=== PATIENT | female | born 1950 | race Caucasian/White ===

== ENCOUNTER 2016-07-08 21:25 | Emergency (ER) | payer MEDICARE ==
[~2016-07-08] VITALS: Ht 165.1 cm; Wt 131.1 kg
[~2016-07-08 21:25] MED LIST: ALBU2.5V14 IH; ALPR0.5T6 PO; ASPI-482 PO; FLUO40CA9 PO; FURO80TA3 PO; GABA-586 PO; HYDR-2758 PO; HYDR-963 PO; INSU100I17 SQ; LIPITOR80 MG PO; LOSA50TA2 PO; LOVA40TA2 PO; MAGN100T3 PO; MAGN400T22 PO; MECL25TA PO; MECL25TA3 PO; METF10002 PO; MOME13HF2 IH; OMEG500C PO; ONDA4TAB10 PO; OXYC1TAB7 PO; OXYC5CAP PO; PRAV80TA2 PO; RANO500T2 PO; SOTA80TA48 PO; TORS20TA2 PO; VERA180T49 PO; WARF1TAB74 PO; WARF3TAB54 PO; WARF3TAB7 PO; percocet PO
[2016-07-08 22:30] VITALS: BP 149/85
[2016-07-08] MEDS ORDERED: FAMOTIDINE 20 MG/2 ML VIAL IVP ONE (22:30)
[2016-07-08] MEDS ORDERED: diphenhydrAMINE 50 MG/ML VIAL IV ONE (22:30)
[2016-07-08] MEDS ORDERED: methylPREDNISolone SOD SUCC PF 125 MG/2 ML VIAL. IV ONE (22:30)
[2016-07-08] MEDS ORDERED: IPRATRPIUM/ALBUTEROL 0.5/2.5MG 3 ML NEBU. ONE (23:04)
[2016-07-08] MEDS ORDERED: IPRATRPIUM/ALBUTEROL 0.5/2.5MG 3 ML NEBU. NEB ONE (23:15)
[2016-07-09] MEDS ORDERED: predniSONE 20 MG TABLET ONE (00:43)
[2016-07-09] MEDS ORDERED: hydrOXYzine HCL 25 MG TABLET ONE (00:43)
--- NOTE | 2016-07-09 01:05 | PHYS DOC ---
General Chief Complaint: SKIN PROBLEM Stated Complaint: RASH,ALLERGY REACTION Time Seen by MD: 22:04 Source: patient, old records Exam Limitations: no limitations Problems: History of Present Illness Initial Comments Pt is 66/F to ED c/o rash. Pt diagnosed colorectal cancer last Nov, follows with oncology. Has right chest port with constant chemo infusion, this is treatment #8. Pt has had mild rash past two weeks unknown etiology, taking OTC benadryl prn. Rash appeared to worsen this am when chemo began infusing, pt has been itching and has scabbed excoriated lesions dorsal left forearm from itching. Pt states small areas of rash scattered over her body now, she has h/o COPD and has been coughing but no iraheta/hoarseness/sob/face or throat swelling. Called her oncologist sergio, recommended local ED for allergic rxn treatment. No cp/sob. VSS Timing/Duration: changing over time (2 wks) Severity: mild Modifying Factors: improves with cold therapy, improves with other Associated Symptoms: rash Allergies: Coded Allergies: adenosine (Verified Allergy, Severe, Anaphylaxis, 12/06/14) "I swell up and I can't breathe." adhesive (Verified Allergy, Intermediate, ITCH, REDNESS WITH PLASTIC TAPE , 12/06/14) PLASTIC TAPE latex (Verified Allergy, Intermediate, Itching, 12/06/14) and "red blotches" I S O L A T I O N *CONTACT* (Verified Allergy, Unknown, 12/23/15) +MRSA abd wound 12/21/15 Past Medical History Medical History: cancer (colorectal dx Nov 2015 follows oncology current chemotherapy), other (CHF, CAD, HLP, DVT, pneumonia, WANG uses 2L O2 NC, pancreatitis, morbid obesity, carpal tunnel, depression) Surgical History: angioplasty, tonsillectomy, other (hysterectomy) Family History Significant Family History: no pertinent family hx Social History Smoker: non-smoker Alcohol: none Drugs: none Review of Systems Constitutional: denies chills, denies fever Respiratory: see HPI Cardiovascular: denies chest pain, denies palpitations, denies syncope Gastrointestinal: denies diarrhea, denies nausea, denies vomiting Genitourinary: denies dysuria, denies hematuria Musculoskeletal: denies joint swelling, denies neck pain Skin: see HPI Psychiatric/Neurological: denies headache, denies paresthesia, denies seizure Physical Exam General Appearance: no apparent distress, obese Ear, Nose, Throat: hearing grossly normal, normal ENT inspection, normal pharynx (no swelling) Neck: full range of motion, supple Respiratory: lungs clear, normal breath sounds, no respiratory distress Cardiovascular: normal peripheral pulses, regular rate, rhythm Gastrointestinal: non tender, soft (obese) Back: no CVA tenderness, no vertebral tenderness Extremities: non-tender, no calf tenderness 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 Small patches erythema scattered at arms/legs c/w allergic rash) Orders, Labs, Meds duoneb/solumedrol 125mg IV/pepcid 20mgIV/benadryl 25mg IV given in ED 0051: I have been able to observe pt visually thru ED course. On arrival she was very agitated, rubbing her arms/legs together obviously uncomfortable with itching. Since receiving meds pt has been lying still no longer constantly scratching, obviously improved. She says she still has some itching but it is much less. Small red patches on arms/legs have faded, nearly disappeared completely. Her respiratory status has been at baseline since duoneb. I discussed home instructions and prescription meds at length and her questions were answered. She expressed agreement/understanding with treatment plan. Departure Time of Disposition: 00:46 Disposition: 01 HOME, SELF-CARE Diagnosis: Allergic Rash uncertain cause Condition: STABLE Patient Instructions: Allergy Tests Additional Instructions: Avoid scratching. Cool environment for better symptom control. OTC pepcid and benadryl while taking prednisone, do not take benadryl with hydroxyzine. Continue current medications. Rx: prednisone, bactroban, hydroxyzine (sedation precautions) Keep wound covered with sterile dressing. Wash wound twice daily with soap and warm water, blot dry. Change dressing each wash. Call your oncologist upon opening this morning to discuss tonight's events and schedule next available appointment for recheck. Return to ED with new or changing symptoms. BORA ESTEVEZ DO July 09, 2016 01:05
== END 2016-07-09 00:55 | disposition home or self-care (01) ==
LOC: ER 21:25
DX: T78.40XA Allergy, unspecified, initial encounter (principal); R21 Rash and other nonspecific skin eruption; I25.10 Atherosclerotic heart disease of native coronary artery without angina pectoris; I50.9 Heart failure, unspecified; E66.01 Morbid (severe) obesity due to excess calories; G47.33 Obstructive sleep apnea (adult) (pediatric); E78.5 Hyperlipidemia, unspecified; C19 Malignant neoplasm of rectosigmoid junction; J44.9 Chronic obstructive pulmonary disease, unspecified; Z86.718 Personal history of other venous thrombosis and embolism; Z98.61 Coronary angioplasty status; Z88.8 Allergy status to other drugs, medicaments and biological substances; Z91.041 Radiographic dye allergy status; Z91.040 Latex allergy status; X58.XXXA Exposure to other specified factors, initial encounter
CPT/HCPCS: 94640; 96374; 96375; 99284; J1200; J2930; J7620; S0028

== ENCOUNTER → 2016-09-07 | Outpatient (CLI) | payer MEDICARE ==
[~2016-09-07] MED LIST changes: +IOHEXOL 240 MG/ML 50ML VIAL. ONE; +IOHEXOL 300 MG/ML 75 ML VIAL. IV ONE
--- NOTE | 2016-09-07 16:06 | RAD ---
CT of the chest, abdomen and pelvis with contrast, 09/07/2016: History: Follow-up rectal cancer after chemotherapy Multidetector CT imaging was performed following oral and IV administration of contrast. There has been previous coronary artery surgery. Coronary artery stents and/or calcifications are present. There is mild calcific plaquing of the thoracic aorta. A Port-A-Cath extends into the superior aspect of the right atrium. No mediastinal or hilar adenopathy is seen. There is linear scarring and/or atelectasis in the inferior lingular region and right middle lobe. A calcified granuloma is present in the left upper lobe. Two tiny 2-3 mm subpleural nodules in the posteromedial aspect of the right lower lobe are unchanged since 12/06/2014 and probably represent benign lymph nodes or vessels. No pulmonary mass or significant consolidation is seen. There is no evidence of pleural fluid. The gallbladder is surgically absent. Mild prominence of the common bile duct and the intrahepatic bile ducts is probably secondary to the postcholecystectomy state. No common duct calculus is seen. No hepatic mass is identified. The pancreas is unremarkable. The spleen is of normal size. Two tiny low-density lesions in the spleen are too small to definitively characterize but are probably cysts. A 1 cm low-density lesion in the lateral aspect of the left kidney is probably a cyst. The kidneys show no evidence of obstruction. No adrenal abnormality is detected. Aortoiliac calcific plaquing is present. No abdominal or pelvic adenopathy is seen. The uterus is surgically absent. There are surgical sutures at the rectal level. Mild streaky increased density in the presacral fat probably represents scarring. There are also surgical sutures related to a small bowel loop in the right lower quadrant. There is no evidence of bowel dilatation or a discrete mass. No free fluid is evident in the abdomen or pelvis. There is moderate soft tissue thickening in the subcutaneous fat of the anterior abdominal wall near the midline and to the right in the right lower quadrant. This most likely represents postsurgical scarring. Moderate multilevel degenerative changes are present in the spine. IMPRESSION: 1. Miscellaneous findings as described above. 2. No specific CT evidence of metastatic disease in the chest, abdomen or pelvis. PQRS Compliance Statement: One or more of the following individualized dose reduction techniques were utilized for this examination: 1. Automated exposure control 2. Adjustment of the mA and/or kV according to patient size 3. Use of iterative reconstruction technique
== END | disposition home or self-care (01) ==
LOC: CT 08:26
PROVIDERS: ATTEND Internal Medicine Hematology & Oncology
DX: C20 Malignant neoplasm of rectum (principal); Z95.5 Presence of coronary angioplasty implant and graft
CPT/HCPCS: 71260; 74177; Q9966; Q9967

== ENCOUNTER → 2016-10-13 | Outpatient (CLI) | payer MEDICARE ==
[~2016-10-13] MED LIST changes: -IOHEXOL 240 MG/ML 50ML VIAL. ONE; -IOHEXOL 300 MG/ML 75 ML VIAL. IV ONE
[2016-10-13 12:36] LABS: BASO % 1 % (0-3); EOS # 0.1 x10^3/uL (0.0-0.7); EOS % 3 % (0-3); HEMOGLOBIN 10.9 g/dL (12.0-15.5); LYMPH # 0.9 x10^3/uL (1.0-4.8); LYMPH % 18 % (24-48); MEAN CORPUSCULAR HEMOGLOBIN 28 pg (25-35); MEAN CORPUSCULAR HGB CONC 33 g/dL (31-37); MEAN CORPUSCULAR VOLUME 86 fL (79-100); MONO # 0.4 x10^3/uL (0.0-1.1); MONO % 8 % (0-9); NEUT # 3.4 x10^3uL (1.8-7.7); NEUT % 70 % (31-73); PLATELET COUNT 168 x10^3/uL (140-400); RED BLOOD COUNT 3.84 x10^6/uL (3.50-5.40); RED CELL DISTRIBUTION WIDTH 18.1 % (11.5-14.5); WHITE BLOOD COUNT 4.8 x10^3/uL (4.0-11.0)
[2016-10-13 12:50] LABS: ALBUMIN/GLOBULIN RATIO 0.5 (1.0-1.7); CALCIUM 8.2 mg/dL (8.5-10.1); CREATININE 1.1 mg/dL (0.6-1.0); TOTAL BILIRUBIN 0.2 mg/dL (0.2-1.0); TOTAL PROTEIN 6.1 g/dL (6.4-8.2)
== END | disposition home or self-care (01) ==
LOC: LAB 12:16
PROVIDERS: ATTEND Internal Medicine Hematology & Oncology
DX: C20 Malignant neoplasm of rectum (principal)
CPT/HCPCS: 36415; 80053; 82378; 85027

== ENCOUNTER → 2016-12-10 | Outpatient (CLI) | payer MEDICARE | END | disposition home or self-care (01) | LOC: MAMMO 10:02 | PROVIDERS: ATTEND Family Medicine | DX: Z12.31 Encounter for screening mammogram for malignant neoplasm of breast (principal) | CPT/HCPCS: G0202; 77067 ==

== ENCOUNTER → 2016-12-23 | Outpatient (CLI) | payer MEDICARE ==
--- NOTE | 2016-12-23 14:20 | RAD ---
DATE: 12/23/2016 EXAM: DIGITAL DIAGNOSTIC RT HISTORY: Possible abnormality on screening COMPARISON: Screening examination 12/10/2016 This study was interpreted with the benefit of Computerized Aided Detection (CAD). FINDINGS: Breast Density: FATTY The Breast Parenchyma is primarily fatty replaced. Breast parenchyma level density A.. Additional images were obtained. A cleavage view was obtained as well as rolled views medially and laterally. The patient has a Port-A-Cath scar in the upper and medial chest. This was marked with a BB. The area of increased density corresponds to same. IMPRESSION: Port-A-Cath scar causing slightly increased density in the medial right breast close to the chest wall . The findings are benign BI-RADS CATEGORY: 2 BENIGN FINDING(S) RECOMMENDED FOLLOW-UP: 12M 12 MONTH FOLLOW-UP PQRS compliance statement: Patient information was entered into a reminder system with a target due date 12/10/2017 for the next mammogram. Mammography is a sensitive method for finding small breast cancers, but it does not detect them all and is not a substitute for careful clinical examination. A negative mammogram does not negate a clinically suspicious finding and should not result in delay in biopsying a clinically suspicious abnormality. "Our facility is accredited by the [employer] Mammography Program."
== END | disposition home or self-care (01) ==
LOC: MAMMO 13:42
PROVIDERS: ATTEND Family Medicine
DX: R92.8 Other abnormal and inconclusive findings on diagnostic imaging of breast (principal); L90.5 Scar conditions and fibrosis of skin
CPT/HCPCS: G0206; 77065

== ENCOUNTER 2017-09-04 12:22 | Inpatient (IN) | payer MEDICARE ==
[~2017-09-04] VITALS: Ht 165.1 cm; Wt 148.4 kg
[~2017-09-04 12:22] MED LIST changes: -METF10002 PO; +METF10003 PO; +WARF3TAB50 PO; -WARF3TAB7 PO
--- NOTE | 2017-09-04 12:54 | EKG ---
[address] [address] Test Date: 2017-09-04 Test Time: 12:49:01 Pat Name: JUNG GUNDERSON Department: Room: Gender: F Fountain Server: MIKE : 1950 Requested By: SUKHDEV DICKERSON Order Number: [id number] Reading MD: José Dietz MD Measurements Intervals [place] Rate: 61 P: 90 IN: 192 QRS: -45 QRSD: 88 T: 66 QT: 460 QTc: 465 Interpretive Statements SINUS RHYTHM ABNORMAL LEFT AXIS DEVIATION LEFT ANTERIOR FASCICULAR BLOCK Electronically Signed On 09-06-2017 13:06:41 CDT by José Dietz MD
[2017-09-04] MEDS ORDERED: ONDANSETRON PF 4 MG/2 ML VIAL. IV ONE (13:00)
[2017-09-04 13:40] LABS: BILIRUBIN,URINE NEG (NEG); CLARITY,URINE HAZY; COLOR,URINE STRAW; GLUCOSE,URINE NEG (NEG); NITRITE,URINE NEG (NEG); UROBILINOGEN,URINE 0.2 mg/dL (0.2 mg/dL)
[2017-09-04 13:41] LABS: BACTERIA,URINE 0 /HPF (0-FEW); HYALINE CASTS, URINE OCC /HPF; SQUAMOUS EPITHELIAL CELL,UR FEW /LPF; WBC,URINE OCC /HPF (0-4)
[2017-09-04] MEDS: MECLIZINE 12.5 MG TABLET. PO PRN (13:55)
[2017-09-04 14:01] LABS: BASO # 0.1 x10^3/uL (0.0-0.2); BASO % 2 % (0-3); EOS # 0.1 x10^3/uL (0.0-0.7); EOS % 2 % (0-3); HEMATOCRIT 38.6 % (36.0-47.0); LYMPH # 1.3 x10^3/uL (1.0-4.8); LYMPH % 19 % (24-48); MEAN CORPUSCULAR HEMOGLOBIN 30 pg (25-35); MEAN CORPUSCULAR HGB CONC 34 g/dL (31-37); MEAN CORPUSCULAR VOLUME 89 fL (79-100); MONO # 0.4 x10^3/uL (0.0-1.1); MONO % 7 % (0-9); NEUT # 4.9 x10^3uL (1.8-7.7); NEUT % 71 % (31-73); PLATELET COUNT 221 x10^3/uL (140-400); RED BLOOD COUNT 4.31 x10^6/uL (3.50-5.40); RED CELL DISTRIBUTION WIDTH 13.7 % (11.5-14.5); WHITE BLOOD COUNT 6.9 x10^3/uL (4.0-11.0)
[2017-09-04 14:22] LABS: ALBUMIN 2.1 g/dL (3.4-5.0); ALBUMIN/GLOBULIN RATIO 0.5 (1.0-1.7); CALCIUM 8.4 mg/dL (8.5-10.1); CREATININE 1.1 mg/dL (0.6-1.0); GFR 49.8; TOTAL BILIRUBIN 0.3 mg/dL (0.2-1.0); TOTAL PROTEIN 6.1 g/dL (6.4-8.2)
[2017-09-04 14:24] LABS: POTASSIUM 4.3 mmol/L (3.5-5.1)
--- NOTE | 2017-09-04 14:30 | RAD ---
Indication: Headaches and dizziness for one week Technique: Noncontrast CT head was obtained. Comparison is from September 17, 2014. One or more of the following individualized dose reduction techniques were utilized for this examination: 1. Automated exposure control 2. Adjustment of the mA and/or kV according to patient size 3. Use of iterative reconstruction technique Findings: The ventricles and sulci are within normal limits for age. There is no acute intracranial hemorrhage or extra-axial fluid collection. There is no mass effect or midline shift. Dia-white differentiation is preserved. There is no depressed skull fracture. The included paranasal sinuses and mastoid air cells are clear. There is stranding in the right cheek, correlate with any bruising or hematoma at this site. IMPRESSION: 1. No acute intracranial findings. Electronically signed by: Gregg Leavitt MD (09/04/2017 2:27 PM) [facility] [place]
--- NOTE | 2017-09-04 14:34 | RAD ---
Indication: Headaches, dizziness. Chest pain for one week. Rectal cancer Technique: Upright portable chest radiograph was obtained. Comparison is from December 16, 2015. Findings: The lungs are clear. Granulomatous disease is present. The cardiopulmonary silhouette is within normal limits. Bony structures are intact. Median sternotomy wires are noted. There is mild scatter artifact from body habitus. Impression: No acute thoracic findings. Electronically signed by: Gregg Leavitt MD (09/04/2017 2:31 PM) [facility] [place]
--- NOTE | 2017-09-04 15:33 | PHYS DOC ---
Past History Past Medical History: A-Fib, Anxiety, CHF, COPD, Diabetes, High Cholesterol, Hypertension Past Surgical History: Appendectomy Smoking: Quit Greater Than 1 Year Alcohol Use: None Drug Use: None Adult General Chief Complaint Chief Complaint: dizziness and extremity problem HPI HPI 67-year-old male patient with multiple medical problem complaining of episodes of positional dizziness with nausea, tinnitus, generalized weakness for 1 week that gradually getting worse. Patient states she had the same problem 3 years ago and was admitted to the hospital for 4 days. Patient states she had a stressful condition at home recently and denies chest pain, shortness of breath , focal neuro deficit, fever and chills, urinary symptom, nausea and vomiting. Patient also complaining of right knee and thigh pain and swelling for several days without new injury. Patient was started on Lasix recently for lower extremity edema. Review of Systems Review of Systems Constitutional: Denies fever or chills , reports generalized weakness[] Eyes: Denies change in visual acuity, redness, or eye pain [] HENT: Denies nasal congestion or sore throat, reports tinnitus[] Respiratory: Denies cough or shortness of breath [] Cardiovascular: No additional information not addressed in HPI [] GI: Denies abdominal pain, vomiting, bloody stools or diarrhea , reports nausea[ ] : Denies dysuria or hematuria [] Musculoskeletal: Denies back pain, reports extremity and joint pain [] Integument: Denies rash or skin lesions [] Neurologic: Denies headache, focal weakness or sensory changes [] Endocrine: Denies polyuria or polydipsia [] All other systems were reviewed and found to be within normal limits, except as documented in this note. Current Medications Current Medications Current Medications Medications (Trade) Dose Ordered Sig/Leticia Start Time Stop Time Status Last Admin Dose Admin Fentanyl Citrate (Fentanyl 2ml Vial) 50 mcg 1X ONCE 09/04/17 15:15 09/04/17 15:16 DC 09/04/17 15:11 50 MCG Meclizine HCl (Antivert) 25 mg PRN Q6HRS PRN 09/04/17 13:00 09/04/17 13:55 25 MG Ondansetron HCl (Zofran) 4 mg 1X ONCE 09/04/17 13:00 09/04/17 13:03 DC 09/04/17 13:00 4 MG Allergies Allergies Allergies Coded Allergies Type Severity Reaction Last Updated Verified adenosine Allergy Severe Anaphylaxis 12/06/14 Yes adhesive Allergy Intermediate ITCH, REDNESS WITH PLASTIC TAPE 12/06/14 Yes latex Allergy Intermediate Itching 12/06/14 Yes I S O L A T I O N *CONTACT* Allergy Unknown 12/23/15 Yes Physical Exam Physical Exam Constitutional: Well nourished, mild distress, non-toxic appearance, morbidly obese, anxious. [] HENT: Normocephalic, atraumatic, bilateral external ears normal, oropharynx moist, no oral exudates, nose normal. [] Eyes: PERRLA, EOMI, conjunctiva normal, no discharge. [] Neck: Normal range of motion, no tenderness, supple, no stridor. [] Cardiovascular:Heart rate regular rhythm, no murmur [] Lungs & Thorax: Bilateral breath sounds clear to auscultation [] Abdomen: Bowel sounds normal, soft, no tenderness, no masses, no pulsatile masses. [] Skin: Warm, dry, no erythema, no rash. [] Back: No tenderness, no CVA tenderness. [] Extremities: No tenderness, no cyanosis, no clubbing, ROM intact, no edema. [] Neurologic: Alert and oriented X 3, normal motor function, normal sensory function, no focal deficits noted. [] Psychologic: Affect anxiousl, judgement normal, mood normal. [] Current Patient Data Vital Signs Vital Signs Date Time Temp Pulse Resp B/P (MAP) Pulse Ox O2 Delivery O2 Flow Rate FiO2 09/04/17 12:38 98.2 65 20 97 Room Air Lab Results Laboratory Tests Test 09/04/17 13:03 09/04/17 13:40 Urine Collection Type Unknown Urine Color Straw Urine Clarity Hazy Urine pH 5.5 Urine Specific [place] <=1.005 Urine Protein Neg (NEG-TRACE) Urine Glucose (UA) Neg mg/dL (NEG) Urine Ketones (Stick) Neg mg/dL (NEG) Urine Blood Small (NEG) Urine Nitrite Neg (NEG) Urine Bilirubin Neg (NEG) Urine Urobilinogen Dipstick 0.2 mg/dL (0.2 mg/dL) Urine Leukocyte Esterase Neg (NEG) Urine RBC 3-5 /HPF (0-2) Urine WBC Occ /HPF (0-4) Urine Squamous Epithelial Cells Few /LPF Urine Bacteria 0 /HPF (0-FEW) Urine Hyaline Casts Occ /HPF White Blood Count 6.9 x10^3/uL (4.0-11.0) Red Blood Count 4.31 x10^6/uL (3.50-5.40) Hemoglobin 13.0 g/dL (12.0-15.5) Hematocrit 38.6 % (36.0-47.0) Mean Corpuscular Volume 89 fL (79-100) Mean Corpuscular Hemoglobin 30 pg (25-35) Mean Corpuscular Hemoglobin Concent 34 g/dL (31-37) Red Cell Distribution Width 13.7 % (11.5-14.5) Platelet Count 221 x10^3/uL (140-400) Neutrophils (%) (Auto) 71 % (31-73) Lymphocytes (%) (Auto) 19 % (24-48) L Monocytes (%) (Auto) 7 % (0-9) Eosinophils (%) (Auto) 2 % (0-3) Basophils (%) (Auto) 2 % (0-3) Neutrophils # (Auto) 4.9 x10^3uL (1.8-7.7) Lymphocytes # (Auto) 1.3 x10^3/uL (1.0-4.8) Monocytes # (Auto) 0.4 x10^3/uL (0.0-1.1) Eosinophils # (Auto) 0.1 x10^3/uL (0.0-0.7) Basophils # (Auto) 0.1 x10^3/uL (0.0-0.2) Sodium Level 139 mmol/L (136-145) Potassium Level 4.3 mmol/L (3.5-5.1) Chloride Level 103 mmol/L (98-107) Carbon Dioxide Level 28 mmol/L (21-32) Anion Gap 8 (6-14) Blood Urea Nitrogen 18 mg/dL (7-20) Creatinine 1.1 mg/dL (0.6-1.0) H Estimated GFR (Cockcroft-Gault) 49.8 BUN/Creatinine Ratio 16 (6-20) Glucose Level 137 mg/dL (70-99) H Lactic Acid Level 2.1 mmol/L (0.4-2.0) H Calcium Level 8.4 mg/dL (8.5-10.1) L Total Bilirubin 0.3 mg/dL (0.2-1.0) Aspartate Amino Transferase (AST) 18 U/L (15-37) Alanine Aminotransferase (ALT) 15 U/L (14-59) Alkaline Phosphatase 123 U/L (46-116) H Creatine Kinase 70 U/L (26-192) Creatine Kinase MB (Mass) 0.6 ng/mL (0.0-3.6) Creatine Kinase MB Relative Index 0.9 % (0-4) Troponin I Quantitative < 0.017 ng/mL (0-0.055) EJ-Cox-O-Type Natriuretic Peptide 831 pg/mL (0-124) H Total Protein 6.1 g/dL (6.4-8.2) L Albumin 2.1 g/dL (3.4-5.0) L Albumin/Globulin Ratio 0.5 (1.0-1.7) L EKG EKG EKG interpreted by me. EKG at 1249 showed normal sinus rhythm at rate of 61, abnormal left axis deviation, left anterior fascicular block, poor R-wave progress in anteroseptal leads, T-wave abnormality and high lateral leads, no acute ST-T wave abnormalities[] Radiology/Procedures Radiology/Procedures [][place] [address] IMAGING REPORT Signed PATIENT: JUNG GUNDERSON ACCOUNT: [id number] : 1950 LOCATION: ER AGE: 67 SEX: F EXAM STATUS: PRE ER ORD. PHYSICIAN: SUKHDEV DICKERSON MD REASON: dizziness PROCEDURE: PORTABLE CHEST 1V Indication: Headaches, dizziness. Chest pain for one week. Rectal cancer Technique: Upright portable chest radiograph was obtained. Comparison is from December 16, 2015. Findings: The lungs are clear. Granulomatous disease is present. The cardiopulmonary silhouette is within normal limits. Bony structures are intact. Median sternotomy wires are noted. There is mild scatter artifact from body habitus. Impression: No acute thoracic findings. Electronically signed by: Gregg Leavitt MD (09/04/2017 2:31 PM) [facility] [place] DICTATED AND SIGNED BY: GREGG LEAVITT MD DATE: 09/04/17 [id number] CC: SUKHDEV DICKERSON MD; RICKY DUNHAM MD ~ [address] [address] IMAGING REPORT Signed PATIENT: JUNG GUNDERSON ACCOUNT: [id number] : 1950 LOCATION: ER AGE: 67 SEX: F EXAM STATUS: PRE ER ORD. PHYSICIAN: SUKHDEV DICKERSON MD REASON: dizziness PROCEDURE: CT HEAD WO CONTRAST Indication: Headaches and dizziness for one week Technique: Noncontrast CT head was obtained. Comparison is from September 17, 2014. One or more of the following individualized dose reduction techniques were utilized for this examination: 1. Automated exposure control 2. Adjustment of the mA and/or kV according to patient size 3. Use of iterative reconstruction technique Findings: The ventricles and sulci are within normal limits for age. There is no acute intracranial hemorrhage or extra-axial fluid collection. There is no mass effect or midline shift. Dia-white differentiation is preserved. There is no depressed skull fracture. The included paranasal sinuses and mastoid air cells are clear. There is stranding in the right cheek, correlate with any bruising or hematoma at this site. IMPRESSION: 1. No acute intracranial findings. Electronically signed by: Gregg Leavitt MD (09/04/2017 2:27 PM) [facility] [place] DICTATED AND SIGNED BY: GREGG LEAVITT MD DATE: 09/04/17 9295 CC: SUKHDEV DICKERSNO MD; RICKY DUNHAM MD ~ Course & Med Decision Making Course & Med Decision Making Pertinent Labs and Imaging studies reviewed. (See chart for details) Evaluation of patient in ER showed 67-year-old female patient with complaining of dizziness for one week. Patient had unremarkable physical exam. Lactic is soft 0.1 without sign of infection. Patient did not have tachycardia, fever, altered level of consciousness, hypotension. Antibiotic was not started because of mild elevation of lactic acid and lack of source of infection. Patient treated with Zofran and meclizine and stated she didn't feel better but after taking fentanyl she felt better. Patient had complaining of right leg pain and refused to have ultrasound and stated she had multiple ultrasound previously without abnormal finding. Dr. Rivas informed at 1532 and agreed with plan of admission. Dragon Disclaimer Dragon Disclaimer This electronic medical record was generated, in whole or in part, using a voice recognition dictation system. Departure Departure: Impression: Primary Impression: Dizziness Additional Impressions: Elevated lactic acid level Morbid obesity Disposition: 09 ADMITTED INPATIENT (at 1532) Admitting Physician: Marshal Rivas Condition: IMPROVED Referrals: RICKY DUNHAM MD (PCP) Problem Qualifiers SUKHDEV DICKERSON MD Sep 04, 2017 15:33
[2017-09-04] MEDS ORDERED: ONDANSETRON PF 4 MG/2 ML VIAL. IV PRN (15:45)
[2017-09-04] MEDS ORDERED: VERA180T PO (17:23)
[2017-09-04] MEDS ORDERED: OXYC5TAB95 PO (17:25)
[2017-09-04] MEDS ORDERED: GABA-586 PO ×2 (17:27)
[2017-09-04] MEDS ORDERED: WARF2.5T83 PO (17:33)
[2017-09-04] MEDS ORDERED: WARF6TAB PO (17:33)
[2017-09-04] MEDS ORDERED: WARF1TAB74 PO (17:33)
[2017-09-04] MEDS ORDERED: NON FORMULARY ITEM (Albuterol Sulfate (Albuterol Sulfate Conc Neb Soln) 2.5 MG) IH PRN (18:45)
[2017-09-04 19:00] VITALS: BP 126/66
[2017-09-04] MEDS ORDERED: ALBUTEROL SULFATE 2.5 MG/3 ML NEBU. NEB PRN (19:00)
[2017-09-04] MEDS: FLUoxetine HCL 20 MG CAPSULE PO SCH (21:41)
[2017-09-04] MEDS: VERAPAMIL SR 180 MG TABLET.ER. PO SCH (21:42)
[2017-09-04] MEDS: ASPIRIN 81 MG TAB.CHEW PO SCH (21:42)
[2017-09-04] MEDS: metFORMIN 500 MG TABLET PO SCH (21:42)
[2017-09-04] MEDS: ATORVASTATIN CALCIUM 20 MG TABLET PO SCH (21:43)
[2017-09-04] MEDS: GABAPENTIN 300 MG CAPSULE. PO SCH (21:43)
[2017-09-04 23:00] VITALS: BP 106/52
[2017-09-05] VITALS (7 sets, daily range): BP systolic 79–130; BP diastolic 56–80
[2017-09-05 06:55] LABS: HEMATOCRIT 39.9 % (36.0-47.0); HEMOGLOBIN 13.3 g/dL (12.0-15.5); RED BLOOD COUNT 4.4 x10^6/uL (3.50-5.40); RED CELL DISTRIBUTION WIDTH 13.8 % (11.5-14.5); WHITE BLOOD COUNT 6.8 x10^3/uL (4.0-11.0)
[2017-09-05 07:10] LABS: ALBUMIN/GLOBULIN RATIO 0.4 (1.0-1.7); CALCIUM 8.4 mg/dL (8.5-10.1); CREATININE 1.2 mg/dL (0.6-1.0); GFR 45.1; POTASSIUM 4.1 mmol/L (3.5-5.1); TOTAL BILIRUBIN 0.4 mg/dL (0.2-1.0); TOTAL PROTEIN 6.5 g/dL (6.4-8.2)
[2017-09-05] MEDS: metFORMIN 500 MG TABLET PO SCH ×2 (07:59→16:40)
[2017-09-05] MEDS: ASPIRIN 81 MG TAB.CHEW PO SCH ×2 (08:00→16:40)
[2017-09-05] MEDS: GABAPENTIN 300 MG CAPSULE. PO SCH ×3 (08:55→21:36)
[2017-09-05] MEDS: OMEGA-3 FATTY ACIDS/FISH OIL 1,000 MG CAPSULE. PO SCH (08:55)
[2017-09-05] MEDS: FLUoxetine HCL 20 MG CAPSULE PO SCH ×2 (08:55→21:35)
[2017-09-05] MEDS: FUROSEMIDE 80 MG TABLET PO SCH (09:00)
[2017-09-05] MEDS: IV NORMAL SALINE 1,000ML 1,000 ML IV SCH ×2 (10:27→17:21)
[2017-09-05] MEDS ORDERED: IV NORMAL SALINE 500ML 500 ML IV ONE (10:30)
--- NOTE | 2017-09-05 10:32 | PN ---
DATE: 09/05/2017 SUBJECTIVE: The patient was admitted yesterday with dizziness. It has been going on for almost a week and also vertigo, when she moves her head in certain position, has some nausea, but no vomiting, no falls. She was admitted to the ICU and monitored closely. Her blood pressure continued to be low, so we held all her verapamil, Lasix as well as her sotalol. PHYSICAL EXAMINATION: GENERAL: When I saw her this morning, she was resting, slightly propped up in bed, in no apparent respiratory distress. She was somewhat pale, but no jaundice, cyanosis or thyromegaly. No jugular venous distension. No lower limb edema. VITAL SIGNS: Her heart rate was 55, blood pressure was 184/63, temperature was 97.9, respiratory rate was 20, and oxygen saturation was 95%. We did check her orthostatics and her blood pressure lying was 112/80 with a heart rate of 63, sitting was 109/70 with a heart rate of 68 and standing was 79/56 with a heart rate was 66. HEAD, EYES, EARS, NOSE AND THROAT: Showed normocephalic, atraumatic. NECK: Supple. HEART: Showed normal first and second heart sounds. No gallop, rub or murmur. CHEST: Clear to auscultation. No crepitation or rhonchi. ABDOMEN: Distended, soft, nontender. No guarding or rigidity. No organomegaly. All hernial orifice intact. Bowel sounds normal. NEUROLOGIC: She is awake, alert, responding appropriately. All cranial nerves intact. She moves extremities without difficulty. Her intake over the last 24 hours was 300, output 225. LABORATORY DATA: This morning showed her white cell count to be 6800, hemoglobin 13, hematocrit 39, MCV 91, and platelet count 226,000. Her chemistry showed that her serum sodium was 141, potassium 4.1, chloride 103, bicarbonate 34, anion gap of 4 and BUN of 21. Her creatinine was 1.2, estimated GFR was 45 mL per minute. Her glucose was 130, lactic acid was 1.1. Calcium was 8.4. Total bilirubin, AST, ALT, alkaline phosphatase were normal. Her total protein was 6.5, albumin 2. Her prothrombin time was 22.2, INR of 2.2. ASSESSMENT: Dizziness, likely due to dehydration and multiple antihypertensive medications, acute kidney injury, coronary artery disease, status post CABG, hypertension, hyperlipidemia, morbid obesity with obstructive sleep apnea, atrial fibrillation. My plan is to hold her verapamil, sotalol and Lasix. The patient will be given a bolus of normal saline 500 mL and will continue with IV normal saline at 100 mL per hour. I will arrange for her to have venous Doppler ultrasound of her right lower extremity to make absolutely sure there is no evidence of prophylactic. There is no DVT. We will continue to monitor her orthostatics and reintroduce her medication slowly. We will consult Dr. Mcclendon and also the cardiology team tomorrow. RENETTA DEE MD DR: LU/thee JOB#: [id number] / [id number]
[2017-09-05] MEDS ORDERED: IV NORMAL SALINE 1,000ML 500 ML IV ONE (10:45)
[2017-09-05] MEDS: oxyCODONE IR 5 MG TABLET PO PRN ×2 (12:33→21:43)
--- NOTE | 2017-09-05 12:55 | RAD ---
EXAM: Right lower extremity venous Doppler sonogram. HISTORY: Swelling. TECHNIQUE: Dia scale and color Doppler sonographic evaluation of the right lower extremity veins with spectral waveform analysis was performed. FINDINGS: The exam is limited due to body habitus. The calf veins are not well seen. There is normal color flow, normal compressibility and there are normal spectral waveforms in the remainder of the right lower extremity veins. There is a right popliteal cyst measuring 5.5 x 4.0 x 1.9 cm. IMPRESSION: 1. No Doppler evidence of lower extremity venous thrombosis. The calf veins could not be assessed due to body habitus. 2. 5.5 cm right Munoz's cyst. Electronically signed by: Loreta Fonseca MD (09/05/2017 12:52 PM) [facility]
--- NOTE | 2017-09-05 13:24 | CONS ---
DATE OF CONSULTATION: NEUROLOGY CONSULTATION REFERRING PHYSICIAN: Dr. Rivas REASON FOR CONSULTATION: Severe dizziness. HISTORY OF PRESENT ILLNESS: This is a 67-year-old right-handed female who is known to me with diabetes mellitus and severe peripheral neuropathy, was admitted through Emergency Room on 09/04/2017 after she presented with 1-week history of generalized weakness and dizziness described sometimes as a vertigo and lightheadedness. The patient also complains of at night comes in both legs and tendency to fall when she uses a walker. She denies visual disturbances, chest pain, shortness of breath or palpitations. On admission, she was found to have hypotension. This morning, she was found to have orthostatic hypotension without significant change in the pulse. On occasions, she complains of global headaches and sometimes nausea. She denies vomiting, photophobia or phonophobia. The patient also complains of symptoms of peripheral neuropathy in the lower extremities including pain and numbness and paresthesia. Standing up, turning head quickly, or changing body positions usually induce dizziness described as vertigo. Nonenhanced head CT scan revealed no evidence of acute intracranial process. PAST MEDICAL HISTORY: Past medical history is significant for diabetes mellitus type 2, peripheral neuropathy in the lower extremities, congestive heart failure, coronary artery disease, status post coronary artery bypass graft and stent, hyperlipidemia, hypertension, obstructive sleep apnea, depressions, history of rectal cancer. PAST SURGICAL HISTORY: Past surgical history is significant for tonsillectomy, coronary stent placement, abdomen surgery for gastric bypass, hysterectomy, carpal tunnel release, rectal surgery. SOCIAL HISTORY: The patient is . She quit smoking 30 years ago. She denies alcohol drinking or illicit drug use. FAMILY HISTORY: Family history is positive for coronary artery disease. CURRENT MEDICATIONS: Warfarin, verapamil, sotalol, furosemide, gabapentin, Lipitor, Prozac, aspirin, albuterol inhaler, metformin, oxycodone for pain, and Zofran for nausea and vomiting, meclizine 25 mg q. 6 hours p.r.n. for vertigo. ALLERGIES: ADENOSINE, ADHESIVE, LATEX. REVIEW OF SYSTEMS: A 10-point review of system was performed as mentioned above in history of present illness and tinnitus. PHYSICAL EXAMINATION: GENERAL: Obese female, not in acute distress. She weighs 310 pounds. VITAL SIGNS: Blood pressure 84/63, respiratory rate 20, pulse is 55 regular, oxygen saturation is 95% on room air. The patient had orthostatic hypotension this morning without change in the pulse. HEENT: Normocephalic, atraumatic, otherwise unremarkable. NECK: Supple. Negative for carotid bruit, lymphadenopathy or thyromegaly. LUNGS: Are clear to A and P. CARDIOVASCULAR: Regular rhythm, normal S1, S2. ABDOMEN: Soft. Bowel sounds positive. EXTREMITIES: Negative for cyanosis or clubbing, NEUROLOGIC: 1. MENTAL STATUS: The patient is alert and oriented x 3. Speech is fluent. There is no language dysfunction. Memory, judgment and abstracting thinking are normal. The patient denies hallucination or delusion. 2. CRANIAL NERVES: Visual alberto are full. The pupils are reactive to light and accommodation. The extraocular movements are intact. There is no nystagmus. There is no facial motor or sensory deficit. Hearing is intact bilaterally. The palate is elevated symmetrically. Sternocleidomastoid muscles are powerful bilaterally. The patient shrugs her shoulders symmetrically, protrudes her tongue in the midline without fasciculation or atrophy. 3. MOTOR EXAMINATION: No focal muscle bulk was seen. The tone is normal. The strength is 4/5 throughout. 4. SENSORY EXAMINATION: Revealed diminished pinprick and light touch senses in patchy distributions and in the glove and stocking distributions in both upper and lower extremities. Deep tendon reflexes are symmetric and hypoactive with absent Achilles responses. Gait is not tested. LABORATORY DATA: CBC revealed white blood cells of 6.8 thousand, hemoglobin 13.3, hematocrit 39.9, and platelet count 226,000. Chemistry revealed sodium of 141, potassium 4.1, chloride 103, CO2 of 34, BUN 21, creatinine 1.2, glucose 130, and calcium 8.4. Lactic acid is 1.1. Liver enzymes are normal. PT is 22.2 and INR 2.2. Urinalysis is negative. IMPRESSION: 1. Severe dizziness described as vertigo induced by changing body or head positions quickly consistent with vestibulopathy and paroxysmal benign positional vertigo. 2. Lightheadedness and headaches upon standing, likely due to dehydration and orthostatic hypotension. 3. Multiple factors for dizziness, has dehydration, diabetes mellitus, autonomic neuropathy, medication side effects including hypotensive agents and diuretics. 4. Multiple medical problems include hypertension, hyperlipidemia, diabetes mellitus type 2, osteoarthritis, coronary artery disease, obesity, obstructive sleep apnea, and paroxysmal atrial fibrillations. RECOMMENDATIONS: 1. Correct the underlying orthostatic hypotension with fluid bolus and hold on hypotensive agents; however, the patient has been on verapamil for paroxysmal atrial fibrillation. 2. Continue with current home medications. 3. Peripheral neuropathy, on gabapentin. 4. Aggressive weight loss as possible. 5. Physical therapy evaluation. 6. Continue with current management initiated by Dr. Rivas. M Bipin BUSTAMANTE MD DR: ROBERT/thee JOB#: [id number] / [id number] VERONIKA
[2017-09-05] MEDS: VERAPAMIL SR 180 MG TABLET.ER. PO SCH ×2 (13:25→21:00)
[2017-09-05] MEDS: SOTALOL 80 MG TABLET. PO SCH (13:25)
[2017-09-05] MEDS: NYSTATIN TOPICAL POWDER 15GM BOTTLE. TP SCH ×2 (13:26→21:35)
--- NOTE | 2017-09-05 15:12 | HP ---
ADMIT DATE: 09/05/2017 HISTORY OF PRESENT ILLNESS: The patient is a 67-year-old who came to the Emergency Room complaining of dizziness and swelling of her legs. She has been complaining of episodes of positional dizziness with nausea and tinnitus and generalized weakness for one week, that is gradually getting worse. She states she has same problem three years ago and was admitted to the hospital for 4 days. She states that she had a stressful condition at home recently, but denied any chest pain, shortness of breath, any focal neurological deficit, chills, rigors or fever. She has right knee and thigh pain and swelling for several days without any new injury. She was started on Lasix for her lower extremity edema recently. She was extensively investigated in the Emergency Room and was admitted for further evaluation. She refused to have a Doppler ultrasound of her right leg, stating that she has had them multiple times before. She is already on Coumadin and we did also consult Dr. Mcclendon to evaluate her for this vertigo. PAST MEDICAL HISTORY: Significant for colon cancer, status post colectomy and colostomy with reversal of the colostomy done on 08/12/2015. She had trouble with wound healing at that time and the wound has dehisced, but that eventually healed. 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 Most recent repeat left heart catheterization in 2011 showed patent TAPIA. She is also known to have hypertension, hyperlipidemia, type 2 diabetes, morbid obesity with obstructive sleep apnea, atrial fibrillation, chronic severe protein-calorie malnutrition and bronchial asthma. PAST SURGICAL HISTORY: Significant for single vessel coronary artery bypass surgery, multiple left heart catheterizations, most recently colectomy and colostomy for colon cancer with reversal of the colostomy done in August 2015. FAMILY HISTORY: Significant for congestive heart failure, coronary artery disease. SOCIAL HISTORY: She is and lives with her . She does not smoke, drink alcohol or recreational drugs. She is compliant with her diet. MEDICATION ALLERGIES: She is allergic to LATEX and ADENOSINE allergy. MEDICATIONS: She is currently on following medications: She is on albuterol sulfate 2.5 mg/0.5 mL every 4 hours as needed. Warfarin sodium, she is on 6 mg tablet. Coumadin, she is on 7 mg on Wednesday, , Wednesday, Wednesday and 3.5 mg warfarin Wednesday, Wednesday and Wednesday. She is on pravastatin sodium 80 mg at bedtime, omega-3 fatty acid for fish oil 500 mg daily, sotalol 160 mg daily, verapamil 180 mg in the morning and 90 mg at bedtime. She is on aspirin 81 mg once a day, oxycodone hydrochloride 5 mg 4 times a day, gabapentin 900 mg twice a day and gabapentin 1200 mg at bedtime, fluoxetine 40 mg twice a day, furosemide 80 mg daily, metformin 1000 mg twice a day. REVIEW OF SYSTEMS: The patient denied any blurring of vision, cataract, glaucoma or macular degeneration. Denied any earache, tinnitus or sensorineural deafness. Denied any nosebleeds, stuffy nose or postnasal drip. Denied any sore throat, sore tongue, toothache, hoarseness of voice or difficulty swallowing. Did complain of nausea, but no vomiting, no diarrhea or constipation. No hematemesis, melena or hematochezia. Denied any dysuria, frequency, hematuria. Denied any chest pain, shortness of breath, orthopnea, paroxysmal nocturnal dyspnea, cough, phlegm or hemoptysis. She did complain of dizziness and lightheadedness. PHYSICAL EXAMINATION: GENERAL: On arrival to the Emergency Room, she looked well and was clearly in no apparent distress. No pallor, jaundice, cyanosis or thyromegaly. No jugular venous distention, but right lower extremity is definitely more swollen than the left lower extremity. VITAL SIGNS: Her heart rate was 65, blood pressure 114/68, temperature was 98.2, respiratory rate 20, and oxygen saturation was 97% on room air. HEAD, EYES, EARS, NOSE and THROAT: Showed normocephalic, atraumatic. NECK: Supple. HEART: Showed normal first and second heart sounds with no gallop, rub or murmur. CHEST: Clear to auscultation. No crepitation or rhonchi. ABDOMEN: Distended, soft, nontender. No guarding or rigidity. No organomegaly. Hernial orifice intact. Bowel sounds normal. NEUROLOGIC: She was awake, alert, responding appropriately with cranial nerves intact. EXTREMITIES: She moves all extremities without difficulty. She is mostly wheelchair bound; however, she does walk for short distances with a walker. LABORATORY DATA: While in the Emergency Room, her white cell count was 6900, hemoglobin 13, hematocrit 39, MCV 89 and platelet count 221,000. Her serum sodium was 139, potassium 4.3, chloride 103, bicarbonate 28, anion gap of 8, BUN 18, creatinine 1.1, estimated GFR was 49 mL per minute. Her glucose 137, calcium was 8.4. Total bilirubin, AST, ALT, alkaline phosphatase were normal. Total protein was 6.1, albumin was 2.1. Her prothrombin time was 28.6, INR 2.8. Urinalysis showed the urine was straw colored, hazy with a pH of 5.5, specific gravity 1.005. Her urinalysis is essentially unremarkable. The patient is complaining of dizziness. She is on a multitude of blood pressure medication including she is on verapamil 180 mg in the morning and 90 mg at bedtime. She is on sotalol 160 mg. She is also on furosemide 80 mg. PLAN: My plan is to consult Dr. Mcclendon to check her. I will admit her to the ICU, check her orthostatics and monitor her lab work. I will also arrange for her to have Doppler ultrasound, although she has refused initially that. RENETTA DEE MD DR: LU/thee JOB#: [id number] / [id number]
[2017-09-05] MEDS: WARFARIN 7.5 MG TABLET. PO SCH (16:40)
[2017-09-05] MEDS: ATORVASTATIN CALCIUM 20 MG TABLET PO SCH (21:35)
[2017-09-06] VITALS (7 sets, daily range): BP systolic 97–133; BP diastolic 55–82
[2017-09-06 06:15] LABS: BASO % 1 % (0-3); EOS # 0.2 x10^3/uL (0.0-0.7); EOS % 3 % (0-3); HEMATOCRIT 35.1 % (36.0-47.0); HEMOGLOBIN 11.6 g/dL (12.0-15.5); LYMPH # 1.5 x10^3/uL (1.0-4.8); LYMPH % 27 % (24-48); MEAN CORPUSCULAR HEMOGLOBIN 30 pg (25-35); MEAN CORPUSCULAR HGB CONC 33 g/dL (31-37); MEAN CORPUSCULAR VOLUME 90 fL (79-100); MONO # 0.5 x10^3/uL (0.0-1.1); MONO % 9 % (0-9); NEUT # 3.3 x10^3uL (1.8-7.7); NEUT % 60 % (31-73); PLATELET COUNT 183 x10^3/uL (140-400); RED CELL DISTRIBUTION WIDTH 13.6 % (11.5-14.5); WHITE BLOOD COUNT 5.5 x10^3/uL (4.0-11.0)
[2017-09-06 06:33] LABS: ALBUMIN 1.7 g/dL (3.4-5.0); ALBUMIN/GLOBULIN RATIO 0.5 (1.0-1.7); CALCIUM 7.8 mg/dL (8.5-10.1); GFR 55.6; POTASSIUM 4.1 mmol/L (3.5-5.1); TOTAL BILIRUBIN 0.3 mg/dL (0.2-1.0); TOTAL PROTEIN 4.9 g/dL (6.4-8.2)
[2017-09-06] MEDS: IV NORMAL SALINE 1,000ML 1,000 ML IV SCH (06:43)
[2017-09-06] MEDS: OMEGA-3 FATTY ACIDS/FISH OIL 1,000 MG CAPSULE. PO SCH (08:47)
[2017-09-06] MEDS: ASPIRIN 81 MG TAB.CHEW PO SCH ×2 (08:48→17:02)
[2017-09-06] MEDS: GABAPENTIN 300 MG CAPSULE. PO SCH ×3 (08:48→20:26)
[2017-09-06] MEDS: FUROSEMIDE 80 MG TABLET PO SCH ×2 (08:49→09:00)
[2017-09-06] MEDS: FLUoxetine HCL 20 MG CAPSULE PO SCH ×2 (08:49→20:25)
[2017-09-06] MEDS: metFORMIN 500 MG TABLET PO SCH ×2 (08:49→17:03)
[2017-09-06] MEDS: VERAPAMIL SR 180 MG TABLET.ER. PO SCH ×3 (08:52→20:26)
[2017-09-06] MEDS: MECLIZINE 12.5 MG TABLET. PO PRN (09:01)
[2017-09-06] MEDS: NYSTATIN TOPICAL POWDER 15GM BOTTLE. TP SCH ×2 (09:03→20:27)
[2017-09-06] MEDS: SOTALOL 80 MG TABLET. PO SCH (09:08)
--- NOTE | 2017-09-06 09:46 | PDOC2 ---
CAY[facility] 09/06/17 0946: CONSULT Date of Admission DATE: 09/06/17 TIME: 09:30 Reason for Consult: Hypotension and paroxysmal atrial fibrillation. Referring Physician: Dr Rivas Problem List Problems Medical Problems: (1) Dizziness Status: Acute (2) Elevated lactic acid level Status: Acute (3) Morbid obesity Status: Acute History of Present Illness This is a pleasant 67-year-old female who presented to the emergency room with chief complaint of dizziness. She has a past medical history of single-vessel coronary artery bypass surgery in 2008 with TAPIA to LAD, repeat L HC in 2011 showed patent TAPIA, hypertension, hyperlipidemia, diabetes mellitus type 2, colon cancer and paroxysmal atrial fibrillation. About a week and half ago she started to become lightheaded and dizzy. She was having a hard time turning her head from side to side and she would feel dizziness when she was laying sitting or standing. She felt like the room was going around and felt like an episode of vertigo she had about 3 years ago. She started to lose her appetite and was not eating as well and then started noticing an increase in lightheadedness over the next several days whenever she would stand upper try to walk. She became very weak and then asked to be brought into the emergency room. Neurology has been consulted for vertigo and she has been started in physical therapy. She has received 1 dose of meclizine. She was also found to be orthostatic and dehydrated and has been started on IV fluid. They were considering holding her antihypertensive this morning however they also control her atrial fibrillation so they asked Cardiology come in to evaluate. Evan denies any chest pain, pressure or tightness. She has not had any palpitations. Her legs have been more swollen the last few days right greater than left. She has also noticed some shortness of breath when she is trying to be physically active. Review of systems -review of 10 organ systems is negative except for as in HPI. Past medical history -paroxysmal atrial fibrillation, coronary artery disease , hypertension, hyperlipidemia, mitral regurgitation, chronic diastolic heart failure, morbid obesity, type 2 diabetes mellitus, colon cancer. Past surgical history -for C-sections, hysterectomy, tonsils, Achilles heel surgery, carpal tunnel both sides, hernia repair, bowel resection with colostomy and reversal, coronary artery bypass surgery with TAPIA to LAD. social history - she lives at home with her and adult children. She is disabled. She is a former smoker but quit 25 years ago 1 pack per day. She denies any alcohol and occasional caffeine use. Family history -her father has coronary artery disease she has a brother that has coronary artery disease with onset at age 40 he had 2 stents placed allergies - Adenosine medications- fluoxetine 40 mg daily Lasix 80 mg Wednesday and Wednesday gabapentin 300 mg 3 capsules in the morning and at noon and then 4 capsules at night, hydrocodone as needed, metformin 1000 mg twice a day, pravastatin 80 mg once a day, sotalol 80 mg twice a day, verapamil 180 mg in the morning and half tablet at bedtime,warfarin as directed. GENERAL: This is a well developed, well nourished female. No apparent distress. SKIN: Warm and dry with normal skin turgor. Negative for pallor. No lesions or rashes noted. EYES: Conjunctiva are clear. Extraocular movements are intact. No xanthelasma. HEAD AND NECK: Oral mucosa is moist. There is no cyanosis. Neck is supple. Jugular venous pressure is flat. Carotid pulses are 2/2 bilaterally. No carotid bruits. There is no obvious thyromegaly. HEART: Regular rate and rhythm. Normal S1 and S2. No S3. No S4. No significant murmur. No rub. PMI is not displaced. LUNGS: Effort is good. There is symmetric expansion bilaterally. Clear to auscultation bilaterally. No wheezes. No crackles. No rhonchi. ABDOMEN: Normal active bowel sounds. Soft. Nontender. EXTREMITIES: No clubbing. No cyanosis. + edema of lower extremities. Palpable pedal pulses. MUSCULOSKELETAL: No kyphosis. No scoliosis. No localized tenderness or stiffness. Gait appears normal. NEUROLOGIC: Alert and oriented times three. Cranial nerves III-XII are grossly intact. Good motor tone and strength in the upper and lower extremities bilaterally. PSYCHOLOGIC: This is a pleasant patient with a normal affect. Procedure Documentation [facility] NUCLEAR STRESS TEST IMPRESSION (12/16/2016): There was a normal heart rate and a normal blood pressure response to stress. There was no chest pain during stress. There were premature ventricular complexes during the test. There were no significant stress induced ECG changes. There was a large, severe intensity, fixed mid to distal anterior and apical defect with no ischemia. Wall motion analysis revealed mid-distal anterior and apical hypokinesis. Ejection fraction: 48%. Compared to the report (images were not available for review) from the previous study performed on 10/16/2014, the perfusion defect now appears fixed, whereas the previous study showed partial reversibility. ECHOCARDIOGRAM IMPRESSION (12/15/2016): This is a technically difficult study due to body habitus. The left ventricle is normal in size. There is mild concentric left ventricular hypertrophy. There is mid-distal anteroseptal and apical hypokinesis. The left ventricular systolic function appears normal with a visually estimated ejection fraction of 50-55%. The left ventricular diastolic parameters appear normal. The left atrium appears mildly dilated. The proximal ascending aorta appears mildly dilated at 3.4 cm. There is mild aortic valve sclerosis. There is mild mitral regurgitation. The estimated pulmonary artery systolic pressure is normal at 23 mmHg. Compared to the report (images were not available for review) of the study dated 07/25/2015, the dilatation of the ascending aorta was not noted on the previous study, but the mitral regurgitation appears less significant on this study. ECHOCARDIOGRAM IMPRESSION (07/25/2015): This is a technically difficult study due to poor image quality. The left ventricle is normal in size. There is normal left ventricular wall thickness. There is mid to distal anterior, septal and apical hypokinesis. The left ventricular systolic function appears normal with an estimated ejection fraction of 55-60%. The left ventricular diastolic parameters appear normal. The left atrium appears mildly dilated. There is mild aortic valve sclerosis. There is moderate mitral regurgitation. The estimated pulmonary artery systolic pressure is normal at 32 mmHg. Compared to the report (images were not available for review) of the study dated 06/26/2014, the left ventricular hypertrophy appears improved, but the mitral regurgitation is more significant on this study. MPI SPECT MULTI REST&/ST PHARM 10/16/2014: 1. Normal heart rate and blood pressure response to Lexiscan. 2. No chest pain, arrhythmias or ECG changes during the test. 3. There was a large, intense, partly reversible anterior, septal and apical defect with small ischemia in the septum. 4. There was anterior, apical and septal hypokinesis. 5. EF 53%. ECHOCARDIOGRAM IMPRESSION (06/26/2014): This is a technically difficult study due to poor image quality. The left ventricle is normal in size. There is mild concentric left ventricular hypertrophy. There is mid to distal anterior, anteroseptal and apical hypokinesis. The left ventricular systolic function appears normal with an estimated ejection fraction of 72%. The left ventricular diastolic parameters appear normal. The left atrium appears mildly dilated. There is mild aortic stenosis with a mean gradient of 6 mmHg, a peak gradient of 15 mmHg and a calculated aortic valve area of 1.8 cm2. The estimated pulmonary artery systolic pressure is normal at 17 mmHg. Compared to the report (images were not available for review) of the study dated 06/21/2012 , mild aortic stenosis is a new finding. LEXISCAN NUCLEAR STRESS TEST IMPRESSION (06/02/2013). Hemodynamic response: There was a normal heart rate and a normal blood pressure response to stress. Clinical response: There was no chest pain during stress. Arrhythmias: None. Stress ECG: There were no significant stress induced ECG changes. Myocardial perfusion: There was a moderate to large infarct involving mid to distal anterior wall and apex. No ischemia. Wall motion: Wall motion analysis revealed distal, anterior and apical hypokinesis. Ejection fraction: 44%. Compared to the previous study performed on 12/11/2011, there was no ischemia on this study. ECHOCARDIOGRAM IMPRESSION (06/14/2013) Distal anterior septal infarct with mildly decreased ejection fraction of 45%. Mild left atrial enlargement. Borderline left ventricular hypertrophy. Technically difficult study. Recommend repeat study with contrast enhancement for clearly defining wall motion. CARDIAC CATHETERIZATION IMPRESSION (12/23/2011): Elevated left ventricular end-diastolic pressure. Severe single vessel coronary artery disease involving the proximal left anterior descending coronary artery with a total occlusion which is chronic and there is mild disease elsewhere. Patent left internal mammary artery graft to the left anterior descending coronary artery. The patient is known to have normal left ventricular systolic function with a calculated ejection fraction of 63% by her recent nuclear stress test on 2011. Assessment / Plan Dizziness -consistent with vertigo will schedule meclizine dosing instead of it being p.r.n. for couple days. Lightheadedness -consistent with orthostatic hypotension. Continue IV fluid and decrease Lasix. Lower extremity edema-she is unable to wear compression socks. She would like assistance getting compression pump with wraps from the [employer]. Plan to have her evaluated by physical therapy as per Medicare request to determine If we can get her assistance. At this point she is slightly dehydrated and receiving fluid. Will plan to decrease Lasix dose. Atrial fibrillation, paroxysmal. The patient seems to be remaining in sinus rhythm. CHADS2 score is 3. She is on Warfarin for stroke prophylaxis and Sotalol for anti arrhythmic. Coronary artery disease s/p CABG -TAPIA to LAD -The patient is doing well without any angina. We will continue optimal medical therapy. Hypertension, controlled. Continue present anti-hypertensive medication Hyperlipidemia. Continue statin pravastatin 80 mg and fish oil. Mitral regurgitation, nonrheumatic, moderate - Improved to mild on most recent echocardiogram Chronic diastolic heart failure - Clinically compensated Obesity. Morbid, BMI 53. Lifestyle modification with exercise, diet and weight loss recommended. Diabetes mellitus. Continue treatment per primary provider. Current Medications Current Medications Meclizine HCl (Antivert) 25 mg PRN Q6HRS PRN PO DIZZINESS Last administered on 09/06/17at 09:01; Start 09/04/17 at 13:00 Ondansetron HCl (Zofran) 4 mg 1X ONCE IV Last administered on 09/04/17at 13:00 ; Start 09/04/17 at 13:00; Stop 09/04/17 at 13:03; Status DC Fentanyl Citrate (Fentanyl 2ml Vial) 50 mcg 1X ONCE IV Last administered on at 15:11; Start 09/04/17 at 15:15; Stop 09/04/17 at 15:16; Status DC Ondansetron HCl (Zofran) 4 mg PRN Q4HRS PRN IV NAUSEA/VOMITING; Start 09/04/17 at 15:45; Stop 09/05/17 at 15:44; Status DC Gabapentin (Neurontin) 1,200 mg HS PO Last administered on 09/05/17at 21:36; Start 09/04/17 at 21:00 Gabapentin (Neurontin) 900 mg BID92 PO Last administered on 09/06/17at 08:48; Start 09/05/17 at 09:00 Warfarin Sodium (Coumadin) 2.5 mg QMWF PO ; Start 09/06/17 at 16:00 Warfarin Sodium (Coumadin) 1 mg QMWF PO ; Start 09/06/17 at 16:00 Warfarin Sodium (Coumadin Per Physician) 1 each PRN DAILY PRN MC SEE COMMENTS; Start 09/04/17 at 19:00 Warfarin Sodium (Coumadin) 7.5 mg [id number] PO Last administered on 09/05/17 16 :40; Start 09/05/17 at 16:00 Non-Formulary Medication (Albuterol Sulfate (Albuterol Sulfate Conc Neb Soln)) 2.5 mg Q4HRS PRN IH WHEEZING; Start 09/04/17 at 18:45; Status UNV Aspirin (Children'S Aspirin) 81 mg BIDWMEALS PO Last administered on 09/06/17 08:48; Start 09/04/17 at 21:00 Fluoxetine HCl (PROzac) 40 mg BID PO Last administered on 09/06/17 08:49; Start 09/04/17 at 21:00 Furosemide (Lasix) 80 mg DAILY PO ; Start 09/05/17 at 09:00 Metformin HCl (Glucophage) 1,000 mg BIDWMEALS PO Last administered on 09/06/17 08:49; Start 09/04/17 at 20:00 Fish Oil (Fish Oil) 1,000 mg DAILY PO Last administered on 09/06/17 08:47; Start 09/05/17 at 09:00 Oxycodone HCl (Roxicodone) 5 mg PRN QID PRN PO PAIN Last administered on 21:43; Start 09/04/17 at 18:45 Atorvastatin Calcium (Lipitor) 20 mg QHS PO Last administered on 09/05/17 21:35 ; Start 09/04/17 at 21:00 Sotalol HCl (Betapace) 160 mg DAILY PO Last administered on 09/06/17 09:08; Start 09/05/17 at 09:00 Verapamil HCl (Calan Sr) 90 mg QHS PO Last administered on 09/04/17 21:42; Start 09/04/17 at 21:00 Verapamil HCl (Calan Sr) 180 mg DAILY PO Last administered on 09/05/17 13:25; Start 09/05/17 at 09:00 Albuterol Sulfate (Ventolin) 2.5 mg PRN Q4HRS PRN NEB SHORTNESS OF BREATH; Start 09/04/17 at 19:00 Nystatin (Nystop) 1 aaron BID TP Last administered on 09/06/17 09:03; Start at 09:00 Sodium Chloride 500 ml @ 0 mls/hr 1X ONCE IV ; Start 09/05/17 at 10:30; Stop 09/05/17 at 10:31; Status DC Sodium Chloride 1,000 ml @ 100 mls/hr Q10H IV Last administered on 09/06/17at 06 :43; Start 09/05/17 at 10:30 Sodium Chloride 500 ml @ 0 mls/hr 1X ONCE IV Last administered on 09/05/17at 10: 38; Start 09/05/17 at 10:45; Stop 09/05/17 at 10:46; Status DC Active Scripts Active Reported Coumadin (Warfarin Sodium) 2.5 Mg Tablet 1 Tab PO DAILY Coumadin (Warfarin Sodium) 1 Mg Tablet 1 Tab PO DAILY Coumadin (Warfarin Sodium) 6 Mg Tablet 1 Tab PO DAILY Coumadin (Warfarin Sodium) 1 Mg Tablet 1 Tab PO DAILY Gabapentin 300 Mg Capsule 1,200 Mg PO HS Gabapentin 300 Mg Capsule 900 Mg PO BID92 Oxycodone Hcl 5 Mg Tablet 1 Tab PO QID PRN Calan Sr (Verapamil Hcl) 180 Mg Tablet.er 90 Mg PO HS Sotalol (Sotalol Hcl) 80 Mg Tablet 2 Tab PO DAILY LAST DOSE GIVEN: DATE: TODAY TIME: AM NEXT DOSE DUE: DATE: TOMORROW TIME: AM Pravastatin Sodium 80 Mg Tablet 80 Mg PO QHS LAST DOSE GIVEN: DATE: TIME: NEXT DOSE DUE: DATE: RESTART TODAY TIME: PM TIME: PM Furosemide 80 Mg Tablet 80 Mg PO DAILY LAST DOSE GIVEN: DATE: TIME: NEXT DOSE DUE: DATE: RESTART TOMORROW TIME: AM TIME: AM Fish Oil ([place]-3 Fatty Acids) 500 Mg Capsule.dr 500 Mg PO DAILY LAST DOSE GIVEN: DATE: TODAY TIME: AM NEXT DOSE DUE: DATE: TOMORROW TIME: AM TIME: AM Aspir 81 (Aspirin) 81 Mg Tablet.dr 81 Mg PO BID LAST DOSE GIVEN: DATE: TODAY TIME: AM NEXT DOSE DUE: DATE: TODAY TIME: PM TIME: PM Verapamil Er (Verapamil Hcl) 180 Mg Tablet.er 180 Mg PO DAILY LAST DOSE GIVEN: DATE: TODAY TIME: AM NEXT DOSE DUE: DATE: TOMORROW TIME: AM TIME: AM Prozac (Fluoxetine Hcl) 40 Mg Capsule 40 Mg PO BID LAST DOSE GIVEN: DATE: TODAY TIME: AM NEXT DOSE DUE: DATE: TOMORROW TIME: AM TIME: AM Metformin Hcl 1,000 Mg Tablet 1,000 Mg PO BID LAST DOSE GIVEN: DATE: TODAY TIME: WITH DINNER NEXT DOSE DUE: DATE: TOMORROW TIME: WITH BREAKFAST TIME: WITH DINNER Albuterol Sulfate Conc Neb Soln (Albuterol Sulfate) 2.5 Mg/0.5 Ml Vial.neb 2.5 Mg IH Q4HRS PRN LAST DOSE GIVEN: DATE: TIME: NEXT DOSE DUE: DATE: TODAY TIME: IF NEEDED Allergies: Coded Allergies: adenosine (Verified Allergy, Severe, Anaphylaxis, 12/06/14) "I swell up and I can't breathe." adhesive (Verified Allergy, Intermediate, ITCH, REDNESS WITH PLASTIC TAPE , 12/06/14) PLASTIC TAPE latex (Verified Allergy, Intermediate, Itching, 12/06/14) and "red blotches" I S O L A T I O N *CONTACT* (Verified Allergy, Unknown, 12/23/15) +MRSA abd wound 12/21/15 VITALS Vital Signs Date Time Temp Pulse Resp B/P (MAP) Pulse Ox O2 Delivery O2 Flow Rate FiO2 09/06/17 09:08 59 132/71 09/06/17 08:52 98.2 16 95 Room Air Labs Laboratory Tests Test 09/04/17 13:03 09/04/17 13:40 09/04/17 16:59 09/04/17 17:30 Urine Collection Type Unknown Urine Color Straw Urine Clarity Hazy Urine pH 5.5 Urine Specific Sheldon <=1.005 Urine Protein Neg (NEG-TRACE) Urine Glucose (UA) Neg mg/dL (NEG) Urine Ketones (Stick) Neg mg/dL (NEG) Urine Blood Small (NEG) Urine Nitrite Neg (NEG) Urine Bilirubin Neg (NEG) Urine Urobilinogen Dipstick 0.2 mg/dL (0.2 mg/dL) Urine Leukocyte Esterase Neg (NEG) Urine RBC 3-5 /HPF (0-2) Urine WBC Occ /HPF (0-4) Urine Squamous Epithelial Cells Few /LPF Urine Bacteria 0 /HPF (0-FEW) Urine Hyaline Casts Occ /HPF White Blood Count 6.9 x10^3/uL (4.0-11.0) Red Blood Count 4.31 x10^6/uL (3.50-5.40) Hemoglobin 13.0 g/dL (12.0-15.5) Hematocrit 38.6 % (36.0-47.0) Mean Corpuscular Volume 89 fL (79-100) Mean Corpuscular Hemoglobin 30 pg (25-35) Mean Corpuscular Hemoglobin Concent 34 g/dL (31-37) Red Cell Distribution Width 13.7 % (11.5-14.5) Platelet Count 221 x10^3/uL (140-400) Neutrophils (%) (Auto) 71 % (31-73) Lymphocytes (%) (Auto) 19 % (24-48) Monocytes (%) (Auto) 7 % (0-9) Eosinophils (%) (Auto) 2 % (0-3) Basophils (%) (Auto) 2 % (0-3) Neutrophils # (Auto) 4.9 x10^3uL (1.8-7.7) Lymphocytes # (Auto) 1.3 x10^3/uL (1.0-4.8) Monocytes # (Auto) 0.4 x10^3/uL (0.0-1.1) Eosinophils # (Auto) 0.1 x10^3/uL (0.0-0.7) Basophils # (Auto) 0.1 x10^3/uL (0.0-0.2) Sodium Level 139 mmol/L (136-145) Potassium Level 4.3 mmol/L (3.5-5.1) Chloride Level 103 mmol/L (98-107) Carbon Dioxide Level 28 mmol/L (21-32) Anion Gap 8 (6-14) Blood Urea Nitrogen 18 mg/dL (7-20) Creatinine 1.1 mg/dL (0.6-1.0) Estimated GFR (Cockcroft-Gault) 49.8 BUN/Creatinine Ratio 16 (6-20) Glucose Level 137 mg/dL (70-99) Lactic Acid Level 2.1 mmol/L (0.4-2.0) Calcium Level 8.4 mg/dL (8.5-10.1) Total Bilirubin 0.3 mg/dL (0.2-1.0) Aspartate Amino Transf (AST/SGOT) 18 U/L (15-37) Alanine Aminotransferase (ALT/SGPT) 15 U/L (14-59) Alkaline Phosphatase 123 U/L (46-116) Creatine Kinase 70 U/L (26-192) Creatine Kinase MB (Mass) 0.6 ng/mL (0.0-3.6) Creatine Kinase MB Relative Index 0.9 % (0-4) Troponin I Quantitative < 0.017 ng/mL (0-0.055) VA-Eeu-G-Type Natriuretic Peptide 831 pg/mL (0-124) Total Protein 6.1 g/dL (6.4-8.2) Albumin 2.1 g/dL (3.4-5.0) Albumin/Globulin Ratio 0.5 (1.0-1.7) Glucose (Fingerstick) 95 mg/dL (70-99) Nasal Screen MRSA (PCR) Negative (Negative) Test 09/04/17 17:33 09/05/17 06:14 09/05/17 11:45 09/05/17 16:57 Prothrombin Time 28.6 SEC (9.4-11.4) 22.2 SEC (9.4-11.4) Prothromb Time International Ratio 2.8 (0.9-1.1) 2.2 (0.9-1.1) Lactic Acid Level 1.1 mmol/L (0.4-2.0) White Blood Count 6.8 x10^3/uL (4.0-11.0) Red Blood Count 4.40 x10^6/uL (3.50-5.40) Hemoglobin 13.3 g/dL (12.0-15.5) Hematocrit 39.9 % (36.0-47.0) Mean Corpuscular Volume 91 fL (79-100) Mean Corpuscular Hemoglobin 30 pg (25-35) Mean Corpuscular Hemoglobin Concent 33 g/dL (31-37) Red Cell Distribution Width 13.8 % (11.5-14.5) Platelet Count 226 x10^3/uL (140-400) Sodium Level 141 mmol/L (136-145) Potassium Level 4.1 mmol/L (3.5-5.1) Chloride Level 103 mmol/L (98-107) Carbon Dioxide Level 34 mmol/L (21-32) Anion Gap 4 (6-14) Blood Urea Nitrogen 21 mg/dL (7-20) Creatinine 1.2 mg/dL (0.6-1.0) Estimated GFR (Cockcroft-Gault) 45.1 BUN/Creatinine Ratio 18 (6-20) Glucose Level 130 mg/dL (70-99) Calcium Level 8.4 mg/dL (8.5-10.1) Total Bilirubin 0.4 mg/dL (0.2-1.0) Aspartate Amino Transf (AST/SGOT) 15 U/L (15-37) Alanine Aminotransferase (ALT/SGPT) 15 U/L (14-59) Alkaline Phosphatase 109 U/L (46-116) Total Protein 6.5 g/dL (6.4-8.2) Albumin 2.0 g/dL (3.4-5.0) Albumin/Globulin Ratio 0.4 (1.0-1.7) Glucose (Fingerstick) 155 mg/dL (70-99) 133 mg/dL (70-99) Test 09/05/17 21:37 09/06/17 05:38 Glucose (Fingerstick) 165 mg/dL (70-99) White Blood Count 5.5 x10^3/uL (4.0-11.0) Red Blood Count 3.90 x10^6/uL (3.50-5.40) Hemoglobin 11.6 g/dL (12.0-15.5) Hematocrit 35.1 % (36.0-47.0) Mean Corpuscular Volume 90 fL (79-100) Mean Corpuscular Hemoglobin 30 pg (25-35) Mean Corpuscular Hemoglobin Concent 33 g/dL (31-37) Red Cell Distribution Width 13.6 % (11.5-14.5) Platelet Count 183 x10^3/uL (140-400) Neutrophils (%) (Auto) 60 % (31-73) Lymphocytes (%) (Auto) 27 % (24-48) Monocytes (%) (Auto) 9 % (0-9) Eosinophils (%) (Auto) 3 % (0-3) Basophils (%) (Auto) 1 % (0-3) Neutrophils # (Auto) 3.3 x10^3uL (1.8-7.7) Lymphocytes # (Auto) 1.5 x10^3/uL (1.0-4.8) Monocytes # (Auto) 0.5 x10^3/uL (0.0-1.1) Eosinophils # (Auto) 0.2 x10^3/uL (0.0-0.7) Basophils # (Auto) 0.0 x10^3/uL (0.0-0.2) Sodium Level 137 mmol/L (136-145) Potassium Level 4.1 mmol/L (3.5-5.1) Chloride Level 105 mmol/L (98-107) Carbon Dioxide Level 30 mmol/L (21-32) Anion Gap 2 (6-14) Blood Urea Nitrogen 17 mg/dL (7-20) Creatinine 1.0 mg/dL (0.6-1.0) Estimated GFR (Cockcroft-Gault) 55.6 BUN/Creatinine Ratio 17 (6-20) Glucose Level 141 mg/dL (70-99) Calcium Level 7.8 mg/dL (8.5-10.1) Total Bilirubin 0.3 mg/dL (0.2-1.0) Aspartate Amino Transf (AST/SGOT) 16 U/L (15-37) Alanine Aminotransferase (ALT/SGPT) 14 U/L (14-59) Alkaline Phosphatase 113 U/L (46-116) Total Protein 4.9 g/dL (6.4-8.2) Albumin 1.7 g/dL (3.4-5.0) Albumin/Globulin Ratio 0.5 (1.0-1.7) LELE COOMBS Jr, MD 09/06/17 1021: CONSULT Reason for Consult: Dizziness and lower extremity edema. Referring Physician: Marshal Rivas MD Chief Complaint Dizziness and lower extremity edema. History of Present Illness She is a pleasant 67-year-old female who is well known to our service. She has a history of chronic intermittent lower extremity edema. She states this may have gotten slightly worse over the past week. She also has a prior history of lightheadedness felt to be due to orthostatic hypotension in addition to vertigo. Approximately 1 week ago she started developing dizziness. Moving her head from side to side or standing up would cause her to feel dizzy as though things were spinning in the room. She denies any syncope or falls. The symptoms persisted so she finally came to the emergency room for further evaluation. She was given 1 dose of meclizine in the emergency room and this seemed to have helped with her dizziness. However, this morning she was again feeling dizzy. She denies any chest pain. She has had some mild dyspnea on exertion. She denies paroxysmal nocturnal dyspnea or orthopnea. She denies any palpitations. Because of these symptoms, a cardiology consultation was requested. Review of System Ten point review systems is as per the history of present illness, otherwise negative. General: Alert, Oriented X3, Cooperative, No acute distress, Other (Morbidly obese.) HEENT: Atraumatic, EOMI, Mucous membr. moist/pink Lungs: Clear to auscultation, Normal air movement Heart: Regular rate, Normal S1, Normal S2, No murmurs Abdomen: Normal bowel sounds, Soft, No tenderness, No hepatospenomegaly Extremities: No clubbing, No cyanosis, No edema, Normal pulses Skin: No rashes, No breakdown, No significant lesion Neuro: Normal speech, Strength at 5/5 X4 ext, Normal tone, Cranial nerves 3-12 NL Psych/Mental Status: Mental status NL, Mood NL Assessment/Plan Dizziness. I suspect this is due to vertigo as well as possibly some orthostatic hypotension. I recommend she start meclizine 25 milligrams 3 times a day as a standing order. If her vertigo symptoms improve, she may be able to be discharged home within the next 24 hours. Lower extremity edema. This is a chronic problem for the patient. She is too large to wear compression stockings. We will attempt to get her an outpatient mechanical compression device. Atrial fibrillation, paroxysmal. She seems to be remaining in sinus rhythm. We will continue warfarin for stroke prevention. Coronary artery disease. She is not having any angina. We will continue with guideline directed medical therapy. CAYETANO FLEMING APRN Sep 06, 2017 09:46 LELE COOMBS Jr, MD Sep 06, 2017 10:21
--- NOTE | 2017-09-06 10:45 | PN ---
DATE: 09/06/2017 SUBJECTIVE: The patient continues to have dizziness described as vertigo when she changes her body positions or head or turning head quickly. She also complains of intermittent global headaches of tension type. She denies chest pain, shortness of breath or palpitation, dysarthria or dysphagia. OBJECTIVE: GENERAL: Obese white female, not in acute distress. VITAL SIGNS: Blood pressure 99/55, respiratory rate 16, pulse is 61 and regular, temperature is 98.3, oxygen saturation 98% on room air. HEENT: Normocephalic, atraumatic, otherwise unremarkable. NECK: Supple. Negative for carotid bruit, lymphadenopathy or thyromegaly. LUNGS: Clear to A and P. CARDIOVASCULAR: Regular rate and rhythm, normal S1, S2. There is no S3, S4 or murmur. ABDOMEN: Soft. Bowel sounds positive. EXTREMITIES: Negative for cyanosis, clubbing, pitting edema. NEUROLOGICAL: Normal mental status and intact cranial nerves. No focal motor deficit. The strength was 4/5 throughout. Sensory examination revealed diminished pinprick and light touch senses in stocking and gloves distributions bilaterally. Deep tendon reflexes were symmetric and hypoactive with absent Achilles responses. Gait not tested. IMPRESSION: 1. Severe vertigo, likely due to underlying orthostatic hypotension. 2. Lightheadedness, likely due to tension headaches. 3. History of paroxysmal atrial fibrillation, hyperlipidemia, diabetes mellitus, diabetic autonomic neuropathy, diabetic peripheral neuropathy in the upper and lower extremities, morbid obesity, and obstructive sleep apnea. RECOMMENDATIONS: 1. We will check blood pressure and pulse for orthostatic hypotension. 2. Continue with current management initiated by Dr. Rivas. The patient is neurologically unchanged . 3. Neurologically, the patient is stable. M Bipin BUSTAMANTE MD DR: ROBERT/thee JOB#: [id number] / [id number]
[2017-09-06] MEDS: MECLIZINE 12.5 MG TABLET. PO SCH ×2 (14:26→20:25)
[2017-09-06] MEDS ORDERED: WARFARIN 1 MG TABLET. PO SCH (16:00)
[2017-09-06] MEDS ORDERED: WARFARIN 2.5 MG TABLET. PO SCH (16:00)
[2017-09-06] MEDS: ATORVASTATIN CALCIUM 20 MG TABLET PO SCH (20:27)
[2017-09-06] MEDS: oxyCODONE IR 5 MG TABLET PO PRN (20:30)
--- NOTE | 2017-09-06 20:41 | PN ---
DATE: 09/06/2017 SUBJECTIVE: The patient is resting, sitting slightly propped up in her bed, eating her lunch comfortably. She continues to complain of her head spinning, feeling dizzy. She was evaluated by the neurologist as well as the condemnation engineer, so her Lasix was held and she was given her verapamil and was started also on meclizine. When I examined her this afternoon, she looked well and was clearly in no apparent distress, slightly pale, but no jaundice, cyanosis, or thyromegaly. No jugular venous distension. Her right lower extremity is more swollen than the left, but this is a chronic problem; however, the venous Doppler ultrasound showed no evidence of deep vein thrombosis; however, she has a large Munoz cyst. PHYSICAL EXAMINATION: VITAL SIGNS: Her heart rate was 56, blood pressure was 126/66, temperature was 98.2, respiratory rate was 18 and oxygen saturation was 95% on room air. HEAD, EYES, EARS, NOSE AND THROAT: Showed normocephalic, atraumatic. NECK: Supple. HEART: Showed normal first and second sounds. No gallop, rub or murmur. CHEST: Clear to auscultation. No crepitation or rhonchi. ABDOMEN: Distended, soft, nontender. No guarding or rigidity. No organomegaly. All hernial orifices are intact. Bowel sounds normal. NEUROLOGIC: She is awake, alert, responding appropriately. All cranial nerves intact. She moves extremities without difficulty, although she is mostly bedbound and chair bound. Her intake over the last 24 hours was incompletely recorded. LABORATORY DATA: As of this morning, her white cell count was 5500, hemoglobin 12, hematocrit 35, MCV 90 and platelet count of 183,000. Serum sodium was 137, potassium 4.1, chloride 105, bicarbonate 30, anion gap of 2, BUN 17, creatinine 1, estimated GFR was 56 mL per minute. Her glucose was 141, calcium was 7.8. Total bilirubin, AST, ALT, alkaline phosphatase were normal. Total protein was 4.9, albumin was 1.7. Her prothrombin time was 22.2, INR of 2.2. Her nasal screen for MRSA PCR was negative. IMPRESSION: In summary, this is a 67-year-old female patient who continues to complain of dizziness, likely dehydration and multiple antihypertensive medications. She was started on IV fluid. Her Lasix was held. 2. Acute kidney injury, improved. Her creatinine is down from 1.2 to 1 and BUN is down from 21 to 17. 3. Other medical problems include coronary artery disease status post coronary artery bypass grafting, hypertension. If anything, the patient is hypertensive, hyperlipidemia, morbid obesity, obstructive sleep apnea, atrial fibrillation, rate controlled. The patient was seen in consultation by Dr. Mcclendon as well as the cardiology team from [facility]. RENETTA DEE MD DR: LU/thee JOB#: [id number] / [id number]
[2017-09-07 05:45] VITALS: BP 117/60
[2017-09-07 06:22] LABS: CALCIUM 8.2 mg/dL (8.5-10.1); GFR 55.6; POTASSIUM 4.6 mmol/L (3.5-5.1)
[2017-09-07] MEDS: FLUoxetine HCL 20 MG CAPSULE PO SCH (08:22)
[2017-09-07] MEDS: VERAPAMIL SR 180 MG TABLET.ER. PO SCH (08:25)
[2017-09-07] MEDS: ASPIRIN 81 MG TAB.CHEW PO SCH (08:25)
[2017-09-07] MEDS: FUROSEMIDE 80 MG TABLET PO SCH (08:25)
[2017-09-07] MEDS: WARFARIN 7.5 MG TABLET. PO SCH (08:25)
[2017-09-07] MEDS: GABAPENTIN 300 MG CAPSULE. PO SCH (08:25)
[2017-09-07] MEDS: OMEGA-3 FATTY ACIDS/FISH OIL 1,000 MG CAPSULE. PO SCH (08:25)
[2017-09-07] MEDS: SOTALOL 80 MG TABLET. PO SCH (08:25)
[2017-09-07] MEDS: metFORMIN 500 MG TABLET PO SCH (08:25)
[2017-09-07] MEDS: NYSTATIN TOPICAL POWDER 15GM BOTTLE. TP SCH (08:55)
[2017-09-07] MEDS ORDERED: MECLIZINE 12.5 MG TABLET. PO SCH (09:00)
[2017-09-07 09:02] VITALS: BP 114/68
[2017-09-07 09:04] VITALS: BP 115/69
[2017-09-07 09:05] VITALS: BP 115/58
--- NOTE | 2017-09-07 09:37 | PN ---
DATE: SUBJECTIVE: The patient continues to have dizziness when she looks to the right side. She denies nausea, vomiting, chest pain, shortness of breath, palpitation, dysarthria, or dysphagia. OBJECTIVE: GENERAL: Obese female, not in acute distress. VITAL SIGNS: Blood pressure 170/60, respiratory rate 12, pulse is 58, temperature 97.8, oxygen saturation is 99% on 2 liters by nasal cannula. HEENT: Normocephalic, atraumatic, otherwise unremarkable. NECK: Supple. Negative for carotid bruit, lymphadenopathy or thyromegaly. LUNGS: Are clear to A and P. CARDIOVASCULAR: Regular rate and rhythm, normal S1, S2. ABDOMEN: Soft. Bowel sounds positive. EXTREMITIES: Are negative for cyanosis, clubbing, or pitting edema. NEUROLOGIC: Normal mental status and intact cranial nerves. There is no nystagmus. There is no facial motor or sensory deficit. Hearing is intact bilaterally. The palate is elevated symmetrically, otherwise unremarkable. Motor Examination: No focal muscle bulk was seen. The tone is normal. The strength is 4/5 throughout. Sensory examination revealed diminished pinprick and light touch senses in glove and stocking distributions bilaterally. Deep tendon reflexes were symmetric and hypoactive with absent Achilles responses. Gait not tested. IMPRESSION: 1. Severe vertigo -- improved, probably positional vertigo versus vestibulopathy, more prominent on the right side. 2. Multiple medical problems include diabetes mellitus, obesity, obstructive sleep apnea, paroxysmal atrial fibrillation, and peripheral neuropathy in the upper and lower extremities. RECOMMENDATIONS: 1. Continue with current management initiated by Dr. Rivas and current medications. 2. Increase physical activities gradually as tolerated. 3. Vestibular exercise may alleviate her symptoms. M Bipin BUSTAMANTE MD DR: ROBERT/thee JOB#: [id number] / [id number]
--- NOTE | 2017-09-07 09:47 | PDOC ---
CAYETANO SESAY BED PLACEMENT COORDINATOR 09/07/17 0947: PROGRESS NOTES Diagnosis Problem Problems Medical Problems: (1) Dizziness Status: Acute (2) Elevated lactic acid level Status: Acute (3) Morbid obesity Status: Acute Assessment Problems We are seeing the patient for hypotension and AFib Assessment / Plan Dizziness -consistent with vertigo - improved with consistent dosing of meclizine. Lightheadedness -consistent with orthostatic hypotension. Resolved pressures are back to normal. IV fluid has been DC it and her Lasix has been decreased. Lower extremity edema-she is unable to wear compression socks. Case management is going to talk to the [employer] to see what evaluation needs to be done to get her compression device. Atrial fibrillation, paroxysmal. The patient seems to be remaining in sinus rhythm. CHADS2 score is 3. She is on Warfarin for stroke prophylaxis and Sotalol /Verapamil for anti arrhythmic. Coronary artery disease s/p CABG -TAPIA to LAD -The patient is doing well without any angina. We will continue optimal medical therapy. Hypertension, controlled. Continue present anti-hypertensive medication Hyperlipidemia. Continue statin therapy Mitral regurgitation, nonrheumatic, moderate - Improved to mild on most recent echocardiogram Chronic diastolic heart failure - Clinically compensated Obesity. Morbid, BMI 53. Lifestyle modification with exercise, diet and weight loss recommended. Diabetes mellitus. Continue treatment per primary provider. Subjective She is sitting up in a chair and feeling much better. Continues to have slight dizziness when she turns her head however the lightheadedness with standing has resolved. She denies any chest pain, shortness of breath or palpitations. We discussed plans for discharge today. Objective Vital Signs Date Time Temp Pulse Resp B/P (MAP) Pulse Ox O2 Delivery O2 Flow Rate FiO2 09/07/17 09:05 63 18 115/58 (77) 96 Nasal Cannula 2.0 09/07/17 09:02 98.3 Intake and Output 09/07/17 07:00 Intake Total 4455 ml Output Total 200 ml Balance 4255 ml Intake Oral 1990 ml IV Total 2465 ml Output Urine Total 200 ml # Voids 3 Abdomen: Normal bowel sounds, Soft, No tenderness Heart: Regular rate, Normal S1, Normal S2, No murmurs Extremities: No edema (right greater than left), Normal pulses Lungs: Clear to auscultation Psych/Mental Status: Mental status NL, Mood NL Review of Relevant I have reviewed the following items bernadette (where applicable) has been applied. Labs Laboratory Tests Test 09/05/17 11:45 09/05/17 16:57 09/05/17 21:37 09/06/17 05:38 Glucose (Fingerstick) 155 mg/dL (70-99) 133 mg/dL (70-99) 165 mg/dL (70-99) White Blood Count 5.5 x10^3/uL (4.0-11.0) Red Blood Count 3.90 x10^6/uL (3.50-5.40) Hemoglobin 11.6 g/dL (12.0-15.5) Hematocrit 35.1 % (36.0-47.0) Mean Corpuscular Volume 90 fL (79-100) Mean Corpuscular Hemoglobin 30 pg (25-35) Mean Corpuscular Hemoglobin Concent 33 g/dL (31-37) Red Cell Distribution Width 13.6 % (11.5-14.5) Platelet Count 183 x10^3/uL (140-400) Neutrophils (%) (Auto) 60 % (31-73) Lymphocytes (%) (Auto) 27 % (24-48) Monocytes (%) (Auto) 9 % (0-9) Eosinophils (%) (Auto) 3 % (0-3) Basophils (%) (Auto) 1 % (0-3) Neutrophils # (Auto) 3.3 x10^3uL (1.8-7.7) Lymphocytes # (Auto) 1.5 x10^3/uL (1.0-4.8) Monocytes # (Auto) 0.5 x10^3/uL (0.0-1.1) Eosinophils # (Auto) 0.2 x10^3/uL (0.0-0.7) Basophils # (Auto) 0.0 x10^3/uL (0.0-0.2) Sodium Level 137 mmol/L (136-145) Potassium Level 4.1 mmol/L (3.5-5.1) Chloride Level 105 mmol/L (98-107) Carbon Dioxide Level 30 mmol/L (21-32) Anion Gap 2 (6-14) Blood Urea Nitrogen 17 mg/dL (7-20) Creatinine 1.0 mg/dL (0.6-1.0) Estimated GFR (Cockcroft-Gault) 55.6 BUN/Creatinine Ratio 17 (6-20) Glucose Level 141 mg/dL (70-99) Calcium Level 7.8 mg/dL (8.5-10.1) Total Bilirubin 0.3 mg/dL (0.2-1.0) Aspartate Amino Transf (AST/SGOT) 16 U/L (15-37) Alanine Aminotransferase (ALT/SGPT) 14 U/L (14-59) Alkaline Phosphatase 113 U/L (46-116) Total Protein 4.9 g/dL (6.4-8.2) Albumin 1.7 g/dL (3.4-5.0) Albumin/Globulin Ratio 0.5 (1.0-1.7) Test 09/06/17 12:04 09/06/17 17:06 09/07/17 05:30 09/07/17 07:39 Glucose (Fingerstick) 107 mg/dL (70-99) 170 mg/dL (70-99) 113 mg/dL (70-99) Sodium Level 137 mmol/L (136-145) Potassium Level 4.6 mmol/L (3.5-5.1) Chloride Level 105 mmol/L (98-107) Carbon Dioxide Level 32 mmol/L (21-32) Anion Gap 0 (6-14) Blood Urea Nitrogen 14 mg/dL (7-20) Creatinine 1.0 mg/dL (0.6-1.0) Estimated GFR (Cockcroft-Gault) 55.6 Glucose Level 127 mg/dL (70-99) Calcium Level 8.2 mg/dL (8.5-10.1) Medications Current Medications Meclizine HCl (Antivert) 25 mg PRN Q6HRS PRN PO DIZZINESS Last administered on 09/06/17at 09:01; Start 09/04/17 at 13:00; Stop 09/06/17 at 12:24; Status DC Ondansetron HCl (Zofran) 4 mg 1X ONCE IV Last administered on 09/04/17at 13:00 ; Start 09/04/17 at 13:00; Stop 09/04/17 at 13:03; Status DC Fentanyl Citrate (Fentanyl 2ml Vial) 50 mcg 1X ONCE IV Last administered on at 15:11; Start 09/04/17 at 15:15; Stop 09/04/17 at 15:16; Status DC Ondansetron HCl (Zofran) 4 mg PRN Q4HRS PRN IV NAUSEA/VOMITING; Start 09/04/17 at 15:45; Stop 09/05/17 at 15:44; Status DC Gabapentin (Neurontin) 1,200 mg HS PO Last administered on 09/06/17 20:26; Start 09/04/17 at 21:00 Gabapentin (Neurontin) 900 mg BID92 PO Last administered on 09/07/17 08:25; Start 09/05/17 at 09:00 Warfarin Sodium (Coumadin) 2.5 mg QMWF PO Last administered on 09/06/17 17:19; Start 09/06/17 at 16:00 Warfarin Sodium (Coumadin) 1 mg QMWF PO Last administered on 09/06/17 17:19; Start 09/06/17 at 16:00 Warfarin Sodium (Coumadin Per Physician) 1 each PRN DAILY PRN MC SEE COMMENTS; Start 09/04/17 at 19:00 Warfarin Sodium (Coumadin) 7.5 mg QTUTHSASU PO Last administered on 09/07/17 08 :25; Start 09/05/17 at 16:00 Non-Formulary Medication (Albuterol Sulfate (Albuterol Sulfate Conc Neb Soln)) 2.5 mg Q4HRS PRN IH WHEEZING; Start 09/04/17 at 18:45; Status UNV Aspirin (Children'S Aspirin) 81 mg BIDWMEALS PO Last administered on 09/07/17 08:25; Start 09/04/17 at 21:00 Fluoxetine HCl (PROzac) 40 mg BID PO Last administered on 09/07/17 08:22; Start 09/04/17 at 21:00 Furosemide (Lasix) 80 mg DAILY PO Last administered on 09/07/17 08:25; Start at 09:00 Metformin HCl (Glucophage) 1,000 mg BIDWMEALS PO Last administered on 09/07/17 08:25; Start 09/04/17 at 20:00 Fish Oil (Fish Oil) 1,000 mg DAILY PO Last administered on 09/07/17 08:25; Start 09/05/17 at 09:00 Oxycodone HCl (Roxicodone) 5 mg PRN QID PRN PO PAIN Last administered on 20:30; Start 09/04/17 at 18:45 Atorvastatin Calcium (Lipitor) 20 mg QHS PO Last administered on 09/06/17 20:27 ; Start 09/04/17 at 21:00 Sotalol HCl (Betapace) 160 mg DAILY PO Last administered on 09/07/17 08:25; Start 09/05/17 at 09:00 Verapamil HCl (Calan Sr) 90 mg QHS PO Last administered on 09/06/17 20:26; Start 09/04/17 at 21:00 Verapamil HCl (Calan Sr) 180 mg DAILY PO Last administered on 09/07/17 08:25; Start 09/05/17 at 09:00 Albuterol Sulfate (Ventolin) 2.5 mg PRN Q4HRS PRN NEB SHORTNESS OF BREATH Last administered on 09/06/17 09:58; Start 09/04/17 at 19:00 Nystatin (Nystop) 1 aaron BID TP Last administered on 09/06/17 20:27; Start at 09:00 Sodium Chloride 500 ml @ 0 mls/hr 1X ONCE IV ; Start 09/05/17 at 10:30; Stop 09/05/17 at 10:31; Status DC Sodium Chloride 1,000 ml @ 100 mls/hr Q10H IV Last administered on 09/06/17 06 :43; Start 09/05/17 at 10:30; Stop 09/06/17 at 12:24; Status DC Sodium Chloride 500 ml @ 0 mls/hr 1X ONCE IV Last administered on 09/05/17at 10: 38; Start 09/05/17 at 10:45; Stop 09/05/17 at 10:46; Status DC Meclizine HCl (Antivert) 25 mg Q6H PO Last administered on 09/06/17 20:25; Start 09/06/17 at 14:00; Stop 09/07/17 at 02:53; Status DC Meclizine HCl (Antivert) 25 mg TID PO Last administered on 09/07/17 08:23; Start 09/07/17 at 09:00 Active Scripts Active Reported Coumadin (Warfarin Sodium) 2.5 Mg Tablet 1 Tab PO DAILY Coumadin (Warfarin Sodium) 1 Mg Tablet 1 Tab PO DAILY Coumadin (Warfarin Sodium) 6 Mg Tablet 1 Tab PO DAILY Coumadin (Warfarin Sodium) 1 Mg Tablet 1 Tab PO DAILY Gabapentin 300 Mg Capsule 1,200 Mg PO HS Gabapentin 300 Mg Capsule 900 Mg PO BID92 Oxycodone Hcl 5 Mg Tablet 1 Tab PO QID PRN Calan Sr (Verapamil Hcl) 180 Mg Tablet.er 90 Mg PO HS Sotalol (Sotalol Hcl) 80 Mg Tablet 2 Tab PO DAILY LAST DOSE GIVEN: DATE: TODAY TIME: AM NEXT DOSE DUE: DATE: TOMORROW TIME: AM Pravastatin Sodium 80 Mg Tablet 80 Mg PO QHS LAST DOSE GIVEN: DATE: TIME: NEXT DOSE DUE: DATE: RESTART TODAY TIME: PM TIME: PM Furosemide 80 Mg Tablet 80 Mg PO DAILY LAST DOSE GIVEN: DATE: TIME: NEXT DOSE DUE: DATE: RESTART TOMORROW TIME: AM TIME: AM Fish Oil (Vergas-3 Fatty Acids) 500 Mg Capsule.dr 500 Mg PO DAILY LAST DOSE GIVEN: DATE: TODAY TIME: AM NEXT DOSE DUE: DATE: TOMORROW TIME: AM TIME: AM Aspir 81 (Aspirin) 81 Mg Tablet.dr 81 Mg PO BID LAST DOSE GIVEN: DATE: TODAY TIME: AM NEXT DOSE DUE: DATE: TODAY TIME: PM TIME: PM Verapamil Er (Verapamil Hcl) 180 Mg Tablet.er 180 Mg PO DAILY LAST DOSE GIVEN: DATE: TODAY TIME: AM NEXT DOSE DUE: DATE: TOMORROW TIME: AM TIME: AM Prozac (Fluoxetine Hcl) 40 Mg Capsule 40 Mg PO BID LAST DOSE GIVEN: DATE: TODAY TIME: AM NEXT DOSE DUE: DATE: TOMORROW TIME: AM TIME: AM Metformin Hcl 1,000 Mg Tablet 1,000 Mg PO BID LAST DOSE GIVEN: DATE: TODAY TIME: WITH DINNER NEXT DOSE DUE: DATE: TOMORROW TIME: WITH BREAKFAST TIME: WITH DINNER Albuterol Sulfate Conc Neb Soln (Albuterol Sulfate) 2.5 Mg/0.5 Ml Vial.neb 2.5 Mg IH Q4HRS PRN LAST DOSE GIVEN: DATE: TIME: NEXT DOSE DUE: DATE: TODAY TIME: IF NEEDED Vitals/I & O Vital Sign - Last 24 Hours 09/06/17 09/06/17 09/06/17 09/06/17 10:00 11:25 12:09 15:46 Temp 97.8 Pulse 56 56 57 Resp 18 16 B/P (MAP) 126/66 (86) 126/66 97/63 (74) Pulse Ox 98 95 99 O2 Delivery Nasal Cannula Room Air Nasal Cannula O2 Flow Rate 2.5 2.0 09/06/17 09/06/17 09/06/17 09/06/17 19:30 19:30 19:30 19:45 Temp 98.3 Pulse 55 56 55 64 Resp 14 B/P (MAP) 117/68 (84) 109/65 (80) 119/69 (86) 109/65 (80) Pulse Ox 97 O2 Delivery Room Air 09/06/17 09/06/17 09/06/17 09/06/17 20:26 20:30 20:30 21:34 Pulse 54 Resp 16 16 B/P (MAP) 109/65 O2 Delivery Room Air Room Air Room Air 09/06/17 09/07/17 09/07/17 09/07/17 22:04 03:04 05:45 08:00 Temp 98.5 97.8 Pulse 57 50 58 Resp 17 12 12 B/P (MAP) 133/82 (99) 117/60 (79) Pulse Ox 96 99 O2 Delivery Room Air Nasal Cannula Room Air O2 Flow Rate 2.0 09/07/17 09/07/17 09/07/17 09/07/17 08:25 08:25 09:02 09:04 Temp 98.3 Pulse 55 55 55 60 Resp 20 20 B/P (MAP) 118/72 118/72 114/68 (83) 115/69 (84) Pulse Ox 100 99 O2 Delivery Nasal Cannula Nasal Cannula O2 Flow Rate 2.0 2.0 09/07/17 09:05 Pulse 63 Resp 18 B/P (MAP) 115/58 (77) Pulse Ox 96 O2 Delivery Nasal Cannula O2 Flow Rate 2.0 Intake and Output 09/06/17 09/06/17 09/07/17 15:00 23:00 07:00 Intake Total 600 ml 3305 ml 550 ml Output Total 200 ml Balance 600 ml 3305 ml 350 ml LELE COOMBS Jr, MD 09/08/17 0954: PROGRESS NOTES Assessment The patient was seen by Cayetano Sesay APRN and I have reviewed her findings and plan and agree with above. Due to staffing constraints, we did not have an attending available on this day to see the patient. MD BERNADETTE Rodriguez Jr., JANAE M APRN Sep 07, 2017 09:47 LELE COOMBS Jr, MD Sep 08, 2017 09:54
[2017-09-07] MEDS ORDERED: MECL25TA3 PO (11:24)
--- NOTE | 2017-09-07 13:33 | DS ---
DATE OF DISCHARGE: 09/07/2017 HOSPITAL COURSE: The patient is a 67-year-old female patient who was admitted with dizziness consistent with vertigo. She also had lightheadedness that has resolved after treatment of dehydration with IV fluid. Her Lasix has been decreased and she has bilateral lower extremity edema. She is unable to wear compression stockings and arrangement has been made to be fitted with lymphedema compression devices. By the time I saw her this morning, she looked well and was clearly in no apparent respiratory distress. She has had no further complaint of dizziness or lightheadedness. Her vertigo has responded well to meclizine and a decision was made to discharge her home with home health. PHYSICAL EXAMINATION: GENERAL: When I examined her, she was slightly pale, no jaundice or cyanosis. No lymphadenopathy, no thyromegaly. No jugular venous distention, but has bilateral lower extremity lymphedema. VITAL SIGNS: Heart rate was 63, blood pressure 115/58, temperature was 98.3, respiratory rate 20, and oxygen saturation was 96% on 2 liters of oxygen by nasal cannula. HEAD, EYES, EARS, NOSE AND THROAT: Showed normocephalic, atraumatic. NECK: Supple. HEART: Showed normal first and second heart sounds with no gallop, rub or murmur. CHEST: Clear to auscultation. No crepitation or rhonchi. ABDOMEN: Distended, soft, nontender. NEUROLOGIC: She is awake, alert, responding appropriately. All cranial nerves intact. She moves extremities without difficulty. Her intake over the last 24 hours was 4450, output was incompletely recorded. LABORATORY DATA: As of yesterday, her white cell count was 5500, hemoglobin 12, hematocrit 35, MCV 90 and platelet count of 183,000. Her chemistry this morning showed a serum sodium 137, potassium 4.6, chloride 105, bicarbonate 32, anion gap of 1, BUN 14, creatinine 1, estimated GFR was 55 mL per minute. Her glucose 127, calcium was 8.2. Total bilirubin, AST, ALT, alkaline phosphatase were normal. Total protein was 4.7, albumin was 1.7. Her prothrombin time was 22.12, INR of 2.2. Her nasal screen for MRSA with PCR was negative. DISCHARGE MEDICATIONS: She was discharged home to continue on albuterol sulfate ____ mg in 0.5 mL by nebulizer every 4 hours as needed, aspirin 81 mg once a day, fluoxetine for Prozac 40 mg twice a day, furosemide 80 mg daily, gabapentin 900 mg twice a day, gabapentin 1200 mg at bedtime, metformin 1000 mg twice a day, omega-3 fatty acid half a tablet once a day, oxycodone 5 mg 4 times a day, pravastatin 80 mg at bedtime, sotalol 160 mg daily, verapamil 180 mg daily, verapamil 90 mg at bedtime. She is on warfarin 7 mg every Wednesday, , Wednesday, Wednesday and 3.5 mg on Wednesday, Wednesday, and Wednesday. She was discharged also on meclizine 25 mg 3 times a day for her vertigo. FINAL DISCHARGE DIAGNOSES: Dizziness consistent with vertigo improved with the meclizine; lightheadedness consistent with orthostatic hypotension, resolved with IV fluid and decreasing her Lasix; lower extremity edema, unable to wear compression stocking and therefore she has an appointment for lymphedema wrap; atrial fibrillation, rate controlled, well anticoagulated; coronary artery disease, status post CABG, the patient is asymptomatic, chest pain free; hypertension, well controlled; hyperlipidemia, on pravastatin; mitral regurgitation and rheumatic, moderately improved; chronic diastolic congestive heart failure, clinically well compensated; obesity, morbid with body mass index of 53 and type 2 diabetes mellitus. RENETTA DEE MD DR: LU/thee JOB#: [id number] / [id number]
== END 2017-09-07 13:15 | disposition home health service (06) | DRG 682 ==
LOC: ER 12:22 → ICU 16:23
PROVIDERS: ADMIT Internal Medicine; ATTEND Internal Medicine
DX: N17.9 Acute kidney failure, unspecified (principal); E43 Unspecified severe protein-calorie malnutrition; Z68.43 Body mass index [BMI] 50.0-59.9, adult; I50.32 Chronic diastolic (congestive) heart failure; I95.1 Orthostatic hypotension; E86.0 Dehydration; H93.19 Tinnitus, unspecified ear; I48.0 Paroxysmal atrial fibrillation; F41.9 Anxiety disorder, unspecified; E11.43 Type 2 diabetes mellitus with diabetic autonomic (poly)neuropathy; E78.00 Pure hypercholesterolemia, unspecified; E66.01 Morbid (severe) obesity due to excess calories; I25.10 Atherosclerotic heart disease of native coronary artery without angina pectoris; G47.33 Obstructive sleep apnea (adult) (pediatric); I11.0 Hypertensive heart disease with heart failure; E78.5 Hyperlipidemia, unspecified; J44.9 Chronic obstructive pulmonary disease, unspecified; I48.2 Chronic atrial fibrillation; M71.20 Synovial cyst of popliteal space [Baker], unspecified knee; M19.90 Unspecified osteoarthritis, unspecified site; Z79.899 Other long term (current) drug therapy; Z82.49 Family history of ischemic heart disease and other diseases of the circulatory system; Z85.048 Personal history of other malignant neoplasm of rectum, rectosigmoid junction, and anus; Z79.84 Long term (current) use of oral hypoglycemic drugs; Z87.891 Personal history of nicotine dependence; Z90.49 Acquired absence of other specified parts of digestive tract; Z90.710 Acquired absence of both cervix and uterus; Z91.040 Latex allergy status; Z93.3 Colostomy status; Z95.1 Presence of aortocoronary bypass graft; Z95.5 Presence of coronary angioplasty implant and graft; Z98.84 Bariatric surgery status; Z90.89 Acquired absence of other organs; Z91.041 Radiographic dye allergy status; Z88.8 Allergy status to other drugs, medicaments and biological substances; Z91.048 Other nonmedicinal substance allergy status
CPT/HCPCS: 36415; 70450; 71045; 80048; 80053; 81001; 82553; 82947; 83605; 83880; 84484; 85025; 85027; 85610; 87641; 93005; 93971; 94640; 96374; J2405; J3010; J7613; J8597; 99285-25; J7030

== ENCOUNTER 2017-10-14 15:01 | Inpatient (IN) | payer MEDICARE, OTHER ==
[~2017-10-14] VITALS: Ht 165.1 cm; Wt 142.9 kg
[~2017-10-14 15:01] MED LIST changes: +OXYC5TAB95 PO; +VERA180T PO; +WARF2.5T83 PO; +WARF6TAB PO
[2017-10-14 15:47] LABS: BASO # 0.1 x10^3/uL (0.0-0.2); BASO % 1 % (0-3); EOS # 0.2 x10^3/uL (0.0-0.7); EOS % 2 % (0-3); HEMATOCRIT 39.9 % (36.0-47.0); HEMOGLOBIN 13.5 g/dL (12.0-15.5); LYMPH # 1.3 x10^3/uL (1.0-4.8); LYMPH % 12 % (24-48); MEAN CORPUSCULAR HEMOGLOBIN 30 pg (25-35); MEAN CORPUSCULAR HGB CONC 34 g/dL (31-37); MEAN CORPUSCULAR VOLUME 88 fL (79-100); MONO # 0.5 x10^3/uL (0.0-1.1); MONO % 5 % (0-9); NEUT # 8.3 x10^3uL (1.8-7.7); NEUT % 80 % (31-73); PLATELET COUNT 290 x10^3/uL (140-400); RED BLOOD COUNT 4.53 x10^6/uL (3.50-5.40); RED CELL DISTRIBUTION WIDTH 14.3 % (11.5-14.5); WHITE BLOOD COUNT 10.4 x10^3/uL (4.0-11.0)
--- NOTE | 2017-10-14 15:49 | EKG ---
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
--- NOTE | 2017-10-14 16:26 | RAD ---
EXAM: CHEST 1 VIEW History: Altered mental status COMPARISON: 09/04/2017 TECHNIQUE: Single portable radiograph of the chest FINDINGS: Mild cardiomegaly. Lower lung volumes and technique accentuates heart size and pulmonary vascularity. Mild prominent appearing bilateral interstitial lung markings. IMPRESSION: Mild congestive changes. Electronically signed by: Sal Daniels MD (10/14/2017 4:23 PM) [id number]
--- NOTE | 2017-10-14 16:32 | RAD ---
CT head without intravenous contrast History: Unresponsive. Altered mental status. Comparison: CT head September 04, 2017. Technique: Axial images are obtained of the head from the skull base through the vertex without IV contrast. Exposure: One or more of the following individualized dose reduction techniques were utilized for this examination: 1. Automated exposure control 2. Adjustment of the mA and/or kV according to patient size 3. Use of iterative reconstruction technique Findings: Motion artifact is seen at several levels, which could obscure subtle abnormalities. The ventricles are appropriate in size, shape, and location for the patient's age. No obvious intracranial mass, mass-effect, midline shift, hemorrhage or obvious acute infarction is identified. Basilar cisterns are patent. Bone windows demonstrate no acute calvarial abnormality. The visualized paranasal sinuses appear clear. Impression: Limited by motion. No acute intracranial process. Please note that CT can be relatively insensitive to acute ischemic infarction for up to 24 hours after symptom onset. Electronically signed by: Lloyd Bartlett MD (10/14/2017 4:28 PM) [id number]
[2017-10-14 16:34] LABS: ALBUMIN 2.2 g/dL (3.4-5.0); ALBUMIN/GLOBULIN RATIO 0.5 (1.0-1.7); CALCIUM 8.7 mg/dL (8.5-10.1); CREATININE 1.2 mg/dL (0.6-1.0); GFR 45.1; POTASSIUM 4.4 mmol/L (3.5-5.1); TOTAL BILIRUBIN 0.2 mg/dL (0.2-1.0)
--- NOTE | 2017-10-14 16:46 | PHYS DOC ---
Past History Past Medical History: CHF, Diabetes Past Surgical History: Appendectomy Smoking: Quit Greater Than 1 Year Alcohol Use: None Drug Use: None Adult General Chief Complaint Chief Complaint: ALTERED MENTAL STATUS HPI HPI 67-year-old female presents via EMS with altered mental status. The patient was last known normal around 11:30. She was making phone calls and acting completely normal. After her family member came back to the house, she was acting a little strange but was still functioning independently. She was taking a shower at that time. After the shower, the patient called to her family member him with a family member came into the room noticed the patient acting differently. She had a tremor in her bilateral arms that she did not have before. She was not answering questions as easily and in fact was speaking very little. She was not able to get around on her own. There was generalized weakness, but no focal difficulties. Prior to this, the patient had not been complaining of feeling ill. Review of Systems Review of Systems ROS initially unable to be done due to AMS. The following is the ROS after she became more lucid. Constitutional: Denies fever or chills [] Eyes: Denies change in visual acuity, redness, or eye pain [] HENT: Denies nasal congestion or sore throat [] Respiratory: Denies cough or shortness of breath [] Cardiovascular: No additional information not addressed in HPI [] GI: Denies abdominal pain, nausea, vomiting, bloody stools or diarrhea [] : Denies dysuria or hematuria [] Musculoskeletal: Denies back pain or joint pain [] Integument: Denies rash or skin lesions [] Neurologic: Denies headache, focal weakness or sensory changes. Had difficulty speaking yesterday [] Endocrine: Denies polyuria or polydipsia [] All other systems were reviewed and found to be within normal limits, except as documented in this note. Allergies Allergies Allergies Coded Allergies Type Severity Reaction Last Updated Verified adenosine Allergy Severe Anaphylaxis 12/06/14 Yes adhesive Allergy Intermediate ITCH, REDNESS WITH PLASTIC TAPE 12/06/14 Yes latex Allergy Intermediate Itching 12/06/14 Yes I S O L A T I O N *CONTACT* Allergy Unknown 12/23/15 Yes Physical Exam Physical Exam Constitutional: Well developed, obese, well nourished, no acute distress, non- toxic appearance. [] HENT: Normocephalic, atraumatic, bilateral external ears normal, oropharynx moist, no oral exudates, nose normal. [] Eyes: PERRLA, EOMI, conjunctiva normal, no discharge. [] Neck: Normal range of motion, no tenderness, supple, no stridor. [] Cardiovascular:Heart rate regular rhythm, no murmur [] Lungs & Thorax: Bilateral breath sounds clear to auscultation [] Abdomen: Bowel sounds normal, soft, no tenderness, no masses, no pulsatile masses. [] Skin: Warm, dry, no erythema, no rash. [] Back: No tenderness, no CVA tenderness. [] Extremities: No tenderness, no cyanosis, no clubbing, ROM intact, no edema. [] Neurologic: Alert and oriented X 3, normal motor function, no focal deficits noted. Patient initially bilateral hand tremor and bilateral restless legs. She was moving all extremities. She was not answering my questions, but was able to give simple answers to the nurse. She could open her eyes, but could not keep them open.[] Psychologic: Unable to assess [] Current Patient Data Vital Signs Vital Signs Date Time Temp Pulse Resp B/P (MAP) Pulse Ox O2 Delivery O2 Flow Rate FiO2 10/14/17 15:25 99.3 62 20 95 Room Air Lab Results Laboratory Tests Test 10/14/17 15:19 10/14/17 16:00 White Blood Count 10.4 x10^3/uL (4.0-11.0) Red Blood Count 4.53 x10^6/uL (3.50-5.40) Hemoglobin 13.5 g/dL (12.0-15.5) Hematocrit 39.9 % (36.0-47.0) Mean Corpuscular Volume 88 fL (79-100) Mean Corpuscular Hemoglobin 30 pg (25-35) Mean Corpuscular Hemoglobin Concent 34 g/dL (31-37) Red Cell Distribution Width 14.3 % (11.5-14.5) Platelet Count 290 x10^3/uL (140-400) Neutrophils (%) (Auto) 80 % (31-73) H Lymphocytes (%) (Auto) 12 % (24-48) L Monocytes (%) (Auto) 5 % (0-9) Eosinophils (%) (Auto) 2 % (0-3) Basophils (%) (Auto) 1 % (0-3) Neutrophils # (Auto) 8.3 x10^3uL (1.8-7.7) H Lymphocytes # (Auto) 1.3 x10^3/uL (1.0-4.8) Monocytes # (Auto) 0.5 x10^3/uL (0.0-1.1) Eosinophils # (Auto) 0.2 x10^3/uL (0.0-0.7) Basophils # (Auto) 0.1 x10^3/uL (0.0-0.2) Sodium Level 139 mmol/L (136-145) Potassium Level 4.4 mmol/L (3.5-5.1) Chloride Level 105 mmol/L (98-107) Carbon Dioxide Level 27 mmol/L (21-32) Anion Gap 7 (6-14) Blood Urea Nitrogen 19 mg/dL (7-20) Creatinine 1.2 mg/dL (0.6-1.0) H Estimated GFR (Cockcroft-Gault) 45.1 BUN/Creatinine Ratio 16 (6-20) Glucose Level 154 mg/dL (70-99) H Calcium Level 8.7 mg/dL (8.5-10.1) Total Bilirubin 0.2 mg/dL (0.2-1.0) Aspartate Amino Transferase (AST) 16 U/L (15-37) Alanine Aminotransferase (ALT) 16 U/L (14-59) Alkaline Phosphatase 126 U/L (46-116) H Total Protein 7.0 g/dL (6.4-8.2) Albumin 2.2 g/dL (3.4-5.0) L Albumin/Globulin Ratio 0.5 (1.0-1.7) L EKG EKG [] Radiology/Procedures Radiology/Procedures [] Impressions: CT head without intravenous contrast History: Unresponsive. Altered mental status. Comparison: CT head September 04, 2017. Technique: Axial images are obtained of the head from the skull base through the vertex without IV contrast. Exposure: One or more of the following individualized dose reduction techniques were utilized for this examination: 1. Automated exposure control 2. Adjustment of the mA and/or kV according to patient size 3. Use of iterative reconstruction technique Findings: Motion artifact is seen at several levels, which could obscure subtle abnormalities. The ventricles are appropriate in size, shape, and location for the patient's age. No obvious intracranial mass, mass-effect, midline shift, hemorrhage or obvious acute infarction is identified. Basilar cisterns are patent. Bone windows demonstrate no acute calvarial abnormality. The visualized paranasal sinuses appear clear. Impression: Limited by motion. No acute intracranial process. Please note that CT can be relatively insensitive to acute ischemic infarction for up to 24 hours after symptom onset. Electronically signed by: Lloyd Bartlett MD (10/14/2017 4:28 PM) [facility] EXAM: CHEST 1 VIEW History: Altered mental status COMPARISON: 09/04/2017 TECHNIQUE: Single portable radiograph of the chest FINDINGS: Mild cardiomegaly. Lower lung volumes and technique accentuates heart size and pulmonary vascularity. Mild prominent appearing bilateral interstitial lung markings. IMPRESSION: Mild congestive changes. Electronically signed by: Sal Daniels MD (10/14/2017 4:23 PM) [facility] Course & Med Decision Making Course & Med Decision Making Pertinent Labs and Imaging studies reviewed. (See chart for details) On arrival, the patient was only answering minimal questions. She would not give a big smile is part of the stroke evaluation. She was moving all of her extremities. She in fact has a restlessness in her bilateral lower extremities and a tremor in her bilateral upper extremities. 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 She is moving her legs again with bilateral weakness. When she gave answers, she had a slight stutter. When the patient went to the CT, her upper extremity tremors ceased. They began again when she went back to her room. Patient's daughter denies change in medication or drug use. The patient was already outside of the 3 hour window for TPA upon evaluation. Her presentation also does not seem to be consistent with a stroke pattern. There was also some confusion about the patient's medication list on arrival. It turns out the patient is on warfarin and her INR yesterday was 3.1. This is also a contraindication for TPA. She is on warfarin for multiple blood clots in the past. Her last blood clot was "a long time ago". The patient is now awake and completely alert. She tells me the last thing she remembers is taking a shower. She further states that she had some difficulty expressing herself verbally yesterday. She knew what she wanted to say, but could not get the words out. That seemed to resolved this morning according to family members as she was talking on the phone it did not sound strange to them. He does not have any word finding difficulty or slurred speech at this time. He tells me that prior to her shower she was feeling normal and had no hints of illness other than the speech yesterday. She does not have a history of CVA, but was diagnosed with possible TIA in the past. The patient is now fully able to answer all my questions. She has no tremors. She is moving all of her extremities without difficulty. She states that she is very tired, but otherwise feels normal. Family states she appears to be at baseline. Discussed the case with Dr. Mcclendon and he felt that the patient should be observed in the hospital overnight but did not necessarily need an MRI. She does not need to be transferred. I discussed case with Dr. Rivas and he has accepted the patient for admission. CT is negative for acute findings. Chest x-ray shows congestion but no focal consolidation. Observed unremarkable. Urinalysis and UDS are pending. [] Dragon Disclaimer Dragon Disclaimer This electronic medical record was generated, in whole or in part, using a voice recognition dictation system. Departure Departure: Referrals: RICKY DUNHAM MD (PCP) LALO MORA DO Oct 14, 2017 16:46
[2017-10-14] MEDS ORDERED: IV NORMAL SALINE 1,000ML 1,000 ML IV ONE (17:45)
[2017-10-14 20:00] VITALS: BP 125/80
--- NOTE | 2017-10-14 21:03 | NUR ---
[address] DEE RE PT ADMISSION TO FLOOR. WHAT BROUGHT HER IN S/SX OVER PAST 2 DAYS. NOW A&O. DISCUSSED SOME HOME MEDS PT NEEDS TONIGHT. TALKED ABOUT PT HISTORY. DISCUSSED LABS SPECIFIC INR. ORDERS WERE RECEIVED.
[2017-10-14] MEDS ORDERED: NON FORMULARY ITEM (Albuterol Sulfate (Albuterol Sulfate Conc Neb Soln) 2.5 MG) IH PRN (21:15)
[2017-10-14] MEDS: SOTALOL 80 MG TABLET. PO SCH (21:39)
[2017-10-14] MEDS: VERAPAMIL 40 MG TABLET. PO SCH (21:40)
[2017-10-14] MEDS: ALBUTEROL SULFATE 2.5 MG/3 ML NEBU. NEB PRN (21:43)
--- NOTE | 2017-10-14 22:30 | NUR ---
SPOKE TO DR. DEE REGARDING PT WANTING GABAPENTIN AND SOME PAIN MEDICATION. RECEIVED ORDERS FOR.
[2017-10-14 22:36] VITALS: BP 131/82
[2017-10-14] MEDS: ACETAMINOPHEN 325 MG TABLET PO PRN (22:47)
[2017-10-14] MEDS: GABAPENTIN 300 MG CAPSULE. PO SCH (22:48)
--- NOTE | 2017-10-14 23:24 | NUR ---
1943 PT NEW ADMIT TO FLOOR. PT ORIENTED TO UNIT. PT ALLOWED FOR QUESTIONS. PT A&O. PLACED ON TELEMETRY. VIDEO GAME CREATOR GOT FIRST SET OF ADMIT VS. REVIEW OF ORDERS.
[2017-10-15] MEDS: ALBUTEROL SULFATE 2.5 MG/3 ML NEBU. NEB PRN (02:39)
[2017-10-15 03:24] LABS: BARBITURATES NEG (NEG); BENZODIAZEPINES NEG (NEG); CANNABINOIDS NEG (NEG); COCAINE NEG (NEG); METHADONE NEG (NEG); OPIATES NEG (NEG); PHENCYCLIDINE NEG (NEG)
[2017-10-15 03:25] LABS: BACTERIA,URINE 0 /HPF (0-FEW); BILIRUBIN,URINE NEG (NEG); CLARITY,URINE CLEAR; COLOR,URINE YELLOW; GLUCOSE,URINE NEG (NEG); NITRITE,URINE NEG (NEG); RBC,URINE RARE /HPF (0-2); SQUAMOUS EPITHELIAL CELL,UR FEW /LPF; UROBILINOGEN,URINE 0.2 mg/dL (0.2 mg/dL); WBC,URINE RARE /HPF (0-4)
[2017-10-15 03:26] LABS: AMPHETAMINE/METHAMPHETAMINE NEG (NEG)
[2017-10-15 05:10] VITALS: BP 115/73
[2017-10-15 06:40] LABS: BASO % 1 % (0-3); EOS # 0.2 x10^3/uL (0.0-0.7); EOS % 3 % (0-3); HEMOGLOBIN 11.4 g/dL (12.0-15.5); LYMPH # 1.5 x10^3/uL (1.0-4.8); LYMPH % 23 % (24-48); MEAN CORPUSCULAR HEMOGLOBIN 30 pg (25-35); MEAN CORPUSCULAR HGB CONC 34 g/dL (31-37); MEAN CORPUSCULAR VOLUME 88 fL (79-100); MONO # 0.5 x10^3/uL (0.0-1.1); MONO % 8 % (0-9); NEUT # 4.2 x10^3uL (1.8-7.7); NEUT % 65 % (31-73); PLATELET COUNT 178 x10^3/uL (140-400); RED BLOOD COUNT 3.87 x10^6/uL (3.50-5.40); WHITE BLOOD COUNT 6.4 x10^3/uL (4.0-11.0)
[2017-10-15 06:47] LABS: CALCIUM 7.9 mg/dL (8.5-10.1); GFR 55.6; POTASSIUM 3.8 mmol/L (3.5-5.1)
[2017-10-15] MEDS: SOTALOL 80 MG TABLET. PO SCH ×2 (08:46→21:19)
[2017-10-15] MEDS: VERAPAMIL 40 MG TABLET. PO SCH ×2 (08:47→21:19)
[2017-10-15] MEDS: metFORMIN 500 MG TABLET PO SCH ×2 (08:50→16:33)
[2017-10-15] MEDS: ACETAMINOPHEN 325 MG TABLET PO PRN (08:50)
[2017-10-15 10:04] VITALS: BP 113/74
--- NOTE | 2017-10-15 10:54 | NUR ---
NSG NOTE; DR Lily BUSTAMANTE CONSULT CALLED TO OFFICE STAFF AT [phone]
--- NOTE | 2017-10-15 11:33 | HP ---
ADMIT DATE: 10/14/2017 HISTORY OF PRESENT ILLNESS: The patient is a 67-year-old female patient who was brought to the Emergency Room with altered mental status. The patient was last known normal around 11:30 in the morning, just prior to admission she was making phone calls and acting completely normal after her family member came back to the house. She was acting little strange but was still functioning independently. She was taking a shower at the time. After the shower, the patient called her family into the room and noted that she was acting differently. She had a tremor in her both hands. She was not answering question as easily and in fact she was speaking very little. She was not able to get around on her own. There is generalized weakness, but no focal difficulties. She apparently continued in that status almost 3 hours according to the ER physician and then she came around and became more responsive and was admitted. The patient was admitted. She was investigated in the Emergency Room, had a CT scan, which was unremarkable, and a decision was made to admit her for observation and to consult Dr. Mcclendon. The patient denied any headache. Denied any focal weakness. Denied any localized tingling or numbness. She is known to have diabetic polyneuropathy. There is no history of tongue biting or bowel or bladder incontinence. PAST MEDICAL HISTORY: Significant for colon cancer, status post colectomy and colostomy with reversal of the colostomy done on 08/12/2015. She has trouble with her wounds healing at that time. The wound dehisced, but eventually healed. 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 Most recent left heart catheterization in 2011 showed patent TAPIA. She is also known to have hypertension, hyperlipidemia, type 2 diabetes, morbid obesity, obstructive sleep apnea, atrial fibrillation, chronic severe protein-calorie malnutrition, and bronchial asthma. PAST SURGICAL HISTORY: Significant for single vessel coronary artery bypass graft surgery, multiple left heart catheterizations, most recently colectomy and colostomy for colon cancer with reversal of the colostomy. FAMILY HISTORY: Significant for congestive heart failure, coronary artery disease. SOCIAL HISTORY: She is and lives with her . She does not smoke, drink alcohol, or use recreational drugs. She is compliant with all her medication. ALLERGIES: She is allergic to ADHESIVES AND LATEX. MEDICATIONS: She is currently on following medications: She is on albuterol sulfate 2.5 mg/0.5 mL by nebulizer every 4 hours. Coumadin, she takes 7 mg 3 times a week. She is also on sotalol 80 mg twice a day, verapamil 180 mg once a day, and gabapentin, she takes 900 mg twice a day and 1200 at bedtime, fluoxetine 40 mg twice a day, furosemide 80 mg once a day, meclizine 25 mg 3 times a day, metformin 1000 mg p.o. b.i.d. PHYSICAL EXAMINATION: GENERAL: On arrival to the Emergency Room, the patient looked pale, but no jaundice, cyanosis or thyromegaly. No jugular venous distension. No lower limb edema. VITAL SIGNS: Her heart rate was 65, blood pressure was 118/66, temperature was 99.3, respiratory rate 20, and oxygen saturation was 93% on room air. HEAD, EYES, EARS, NOSE, AND THROAT: Showed normocephalic, atraumatic. NECK: Supple. HEART: Showed normal first and second heart sounds. No gallop, rub, or murmur. CHEST: Clear to auscultation. No crepitation or rhonchi. ABDOMEN: Distended, soft, nontender. NEUROLOGIC: She was alert and oriented x 3 with normal motor function, no focal deficits noted. She initially has bilateral hand tremors and bilateral restless legs. She was moving all extremities; however, she was not answering any questions, but was able to give simple answers to the nurse. She could open her eyes, but could not keep them open. She apparently was extensively investigated in the Emergency Room. LABORATORY WORK: Showed that her white cell count was 10,400, hemoglobin 13.5, hematocrit 39.9, MCV 88, and platelet count 290,000 with normal manual differential. Her prothrombin time was 14.4, INR of 4, aPTT was 39. Her chemistry showed a serum sodium 139, potassium 4.4, chloride 105, bicarbonate 27, anion gap of 7, BUN 19, creatinine 1.2, estimated GFR was 45 mL per minute, her glucose 154, calcium was 8.7. Total bilirubin, AST, ALT were normal. Alkaline phosphatase slightly elevated. Her total protein was 7, albumin was 2.2. Her urinalysis showed the urine was yellow, clear with a pH of 5.5, specific gravity of 1.025. The urine was negative for protein and glucose. There was trace of ketones and blood, was negative for nitrite, bilirubin, and adipose tissue. Her toxic screen was essentially negative. Her chest x-ray showed that she has mild cardiomegaly and lower lung volumes and accentuated heart size and pulmonary vascularity, mild prominent appearing bilateral interstitial lung marking. CT scan of the head showed that limited by motion, but no acute intracranial process. IMPRESSION: In summary, this is a 67-year-old female patient who came in with altered mental status that lasted for almost 3 hours. The patient basically came back and was responsive. All her lab works are within the acceptable range. Her CT scan did not show any abnormal finding. My plan is to consult Dr. Mcclendon. We will have check her fasting lipid profile and also bilateral Doppler ultrasound and decide on further management accordingly. RENETTA DEE MD DR: LU/thee JOB#: [id number] / [id number]
[2017-10-15] MEDS: MECLIZINE 12.5 MG TABLET. PO SCH ×3 (11:37→21:26)
[2017-10-15] MEDS: FLUoxetine HCL 20 MG CAPSULE PO SCH ×2 (11:37→21:18)
[2017-10-15] MEDS: GABAPENTIN 300 MG CAPSULE. PO SCH ×3 (11:37→21:21)
--- NOTE | 2017-10-15 12:52 | NUR ---
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 Requires contact precautions until 2 negative results 7 days apart. Has had one negative result 09/04/17.
--- NOTE | 2017-10-15 13:29 | PN ---
DATE: 10/15/2017 SUBJECTIVE: The patient is resting slightly propped up in bed, no apparent distress. She is awake, alert, responding appropriately; however, she is complaining that she is tired. PHYSICAL EXAMINATION: GENERAL: When I examined her, she looked well and was clearly in no apparent respiratory distress, pale, but no jaundice, cyanosis, or thyromegaly. No jugular venous distension. No lower limb edema. VITAL SIGNS: Her heart rate was 77, blood pressure 113/74, temperature was 98, respiratory rate was 18 and oxygen saturation was 95% on room air. HEAD, EYES, EARS, NOSE AND THROAT: Normocephalic, atraumatic. NECK: Supple. HEART: Showed normal first and second heart sounds. No gallop, rub or murmur. CHEST: Clear to auscultation. No crepitation or rhonchi. ABDOMEN: Distended, soft, nontender. No guarding or rigidity. No organomegaly. All hernial orifices intact. Bowel sounds normal. NEUROLOGIC: She is awake, alert, responding appropriately. All cranial nerves intact. She moves extremities without difficulty and she said that she is able to ambulate with a walker. She can have a shower on her own. She is able to dress and undress and she actually in fact she said that she is able even to drive her car. Her intake over the last 24 hours was 800, output was 200. LABORATORY DATA: Her lab work as of this morning showed a white cell count of 6400, hemoglobin 11, hematocrit 34, MCV 88 and platelet count of 176,000. Her serum sodium 140, potassium 3.8, chloride 105, bicarbonate 29, anion gap of 5, BUN 18, creatinine 1, estimated GFR was 55 mL per minute. Her glucose 114, calcium was 7.9. Her prothrombin time this morning was 33.1, INR of 3.3. Urinalysis was essentially unremarkable and her toxic screen was negative. IMPRESSION: In summary, this is a 67-year-old female patient who came with altered mental status. The patient has bilateral tremors in both arms and she is not answering questions and was speaking very little. She was able to get around on her own and she has also generalized weakness, but no focal deficit and this state has continued for almost 3 hours and then patient came around and became more lucid, alert, oriented. There is no documented tongue biting or incontinence of bladder or bowel. We did order a fasting lipid profile and bilateral carotid Doppler ultrasound. I resumed all her medication and consulted Dr. Mcclendon for further evaluation as well as Physical and Occupational Therapy. RENETTA DEE MD DR: LU/thee JOB#: [id number] / [id number]
--- NOTE | 2017-10-15 15:08 | RAD ---
Clinical Indications: Altered mental status, speech difficulty. Exam : Carotid Duplex with Grayscale Ultrasound and Spectral and Color Doppler Analysis: PQRS Compliance Statement - Stenosis calculations for CT, MR and conventional angiography are based upon measurement of the distal ICA diameter in accordance with the NASCET methodology. Stenosis calculations for carotid ultrasound studies are derived from validated velocity criteria which are known to correlate with the NASCET methodology. Comparison study: None available. Findings: The common, internal and external carotid arteries were examined by grayscale, color and spectral Doppler ultrasound. Mild atherosclerotic plaque identified in the proximal bilateral internal carotid arteries. Flow in both vertebral arteries was antegrade and normal. The following are the velocities and ratios in the carotid arteries on both sides: RIGHT ICA PV: 50cm/sec RIGHT CCA PV: 70cm/sec RIGHT ICA ED: 28cm/sec RIGHT IC/CCPV: Less than 1 RIGHT VERTEBRAL: antegrade flow RIGHT % STENOSIS: Less than 50% LEFT ICA PV: 62cm/sec LEFT CCA PV: 69cm/sec LEFT ICA ED: 27cm/sec LEFT IC/CCPV: Less than 1 LEFT VERTEBRAL: antegrade flow LEFT % STENOSIS: Less than 50% <50% ICA Stenosis: PSV < 125cm/s (EDV < 40cm/s; SVR < 2.0) 50-69% ICA Stenosis: PSV < 125-229cm/s (EDV 40-99cm/s; SVR 2.0-3.9) >70% ICA Stenosis: PSV > 230cm/s (EDV >100cm/s; SVR >4.0) Impression: No evidence of hemodynamically significant stenosis. Electronically signed by: Sal Daniels MD (10/15/2017 3:04 PM) [id number]
[2017-10-15] MEDS: HYDROcodone/APAP 5/325MG 1 TAB TABLET PO PRN ×2 (16:33→21:27)
[2017-10-15 20:10] VITALS: BP 138/87
[2017-10-15 23:12] VITALS: BP 127/78
--- NOTE | 2017-10-15 23:27 | CONS ---
DATE OF CONSULTATION: 10/15/2017 NEUROLOGIC CONSULTATION REFERRING PHYSICIAN: Dr. Rivas REASON FOR CONSULTATION: Mental status changes. HISTORY OF PRESENT ILLNESS: This is a 67-year-old right-handed female who was admitted to Emergency Room after she was found to have difficulty finding words, difficulty talking and acting abnormally. According to the patient, she has been doing well until the morning of admission when she started having mental status changes. After taking a shower, she called family member to come to the room and she was found to have a tremor of both upper extremities with acting differently. In the Emergency Room, the patient was in and out with mental status changes over 3 hours. Initial nonenhanced head CT scan revealed no evidence of acute intracranial process. Finally, her mental status improved and the patient was able to communicate. She was admitted for further evaluation. The patient denies headaches, visual disturbances, nausea, vomiting, chest pain, shortness of breath or palpitations, but she complains of numbness and paresthesia of the lower extremities and she related that to peripheral neuropathy and she complains of generalized weakness. PAST MEDICAL HISTORY: Significant for coronary artery disease, required a coronary artery bypass graft, status post 4 stents placement, hypertension, hyperlipidemia, diabetes mellitus, obesity, obstructive sleep apnea. She uses oxygen per nasal cannula. History of colon cancer, required colectomy preceded by colostomy. Bronchial asthma, history of atrial fibrillation. PAST SURGICAL HISTORY: Significant for coronary artery bypass graft, a single artery and a colectomy for colon cancer. SOCIAL HISTORY: The patient is . She lives with her . She denies smoking, alcohol drinking, or illicit drug use. FAMILY HISTORY: Positive for coronary artery disease and congestive heart failure. CURRENT HOME MEDICATIONS: Include warfarin 7 mg alternate with 3 mg 6 times weekly, sotalol 80 mg twice daily, verapamil 180 mg once daily, gabapentin 900 mg twice daily and 1200 mg at bedtime, fluoxetine 40 mg 3 times daily, furosemide 80 mg once daily, meclizine 25 mg 3 times daily p.r.n. for dizziness and metformin 1000 mg b.i.d. ALLERGIES: She is allergic to ADHESIVE and LATEX. REVIEW OF SYSTEMS: A 10-point review of system was performed as mentioned above in history of present illness. PHYSICAL EXAMINATION: GENERAL: Obese white female, not in acute distress. She weighs 315 pounds with BMI of 52.4. VITAL SIGNS: Blood pressure 117/74, respiratory rate 18, pulse is 77 and regular, temperature 98, oxygen saturation 95% on room air. HEENT: Normocephalic, atraumatic, otherwise unremarkable. NECK: Supple. Negative for carotid bruit, lymphadenopathy, JVD or thyromegaly. LUNGS: Clear to A and P. CARDIOVASCULAR: Regular rate and rhythm, normal S1, S2. There is no S3, S4 or murmur. ABDOMEN: Soft. Bowel sounds positive. EXTREMITIES: Positive for trace edema, but negative for cyanosis or clubbing. NEUROLOGIC: Mental Status: The patient is alert and oriented x 3. Speech is fluent. There is no language dysfunction. Memory, judgment, and abstract thinking are normal. The patient denies hallucination or delusion. Cranial nerves: Visual alberto are full. The pupils are reactive to light and accommodation. The extraocular movements are intact. There is no nystagmus. There is no facial motor or sensory deficit. Hearing is intact bilaterally. The palate is elevated symmetrically. Sternocleidomastoid muscles are powerful bilaterally. The patient shrugs her shoulders symmetrically. Protrudes her tongue in the midline without fasciculation or atrophy. Motor examination revealed no focal muscle bulk was seen and tone is normal. The strength is 4/5 throughout. Sensory examination revealed diminished pinprick and light touch senses over all dermatomes in both lower extremities. Deep tendon reflexes were symmetric and hypoactive with absent Achilles responses. Gait not tested at this time. LABORATORY DATA: CBC revealed white blood cells of 6400, hemoglobin 11.4, hematocrit 34, platelet count 178,000. Chemistry revealed sodium 140, potassium 3.8, chloride 106, CO2 29, BUN 18, creatinine 1 and glucose 114, calcium 7.9. Lipid profile is normal. Urinalysis is negative for urinary tract infections. Urine drug screen is negative. Coagulation: INR on admission was 4 and INR today is 3.3 with PT of 33. DIAGNOSTIC DATA: Nonenhanced head CT scan revealed no evidence of acute intracranial process. A carotid Doppler study revealed no evidence of significant stenosis and chest x-ray revealed mild congestive changes. IMPRESSION: 1. Possible transient ischemic attack, presented with mental status changes and tremor--resolved. Negative study for a head CT scan and a carotid Doppler study. 2. Multiple risk factors of stroke include obesity, hypertension, hyperlipidemia, diabetes mellitus and coronary artery disease. 3. Chronic lower back pain, sleep apnea, peripheral neuropathy in the lower extremities. RECOMMENDATIONS: Continue with current management initiated by Dr. Rivas along with her home medications. Repeat PT/INR, if INR becomes below 3, will start the patient on alternative dose of warfarin. Physical therapy as tolerated and aggressive weight loss. M Bipin BUSTAMANTE MD DR: ROBERT/thee JOB#: [id number] / [id number]
[2017-10-16] MEDS: HYDROcodone/APAP 5/325MG 1 TAB TABLET PO PRN (03:17)
[2017-10-16 05:08] VITALS: BP 111/73
[2017-10-16] MEDS: SOTALOL 80 MG TABLET. PO SCH (09:00)
[2017-10-16] MEDS ORDERED: FUROSEMIDE 40 MG TABLET PO SCH (09:00)
[2017-10-16] MEDS: FLUoxetine HCL 20 MG CAPSULE PO SCH (09:06)
[2017-10-16] MEDS: GABAPENTIN 300 MG CAPSULE. PO SCH (09:06)
[2017-10-16] MEDS: MECLIZINE 12.5 MG TABLET. PO SCH (09:07)
[2017-10-16] MEDS: metFORMIN 500 MG TABLET PO SCH (09:07)
[2017-10-16] MEDS: VERAPAMIL 40 MG TABLET. PO SCH (09:08)
[2017-10-16] MEDS: ALBUTEROL SULFATE 2.5 MG/3 ML NEBU. NEB PRN (09:17)
[2017-10-16] MEDS ORDERED: WARF4TAB68 PO (10:22)
--- NOTE | 2017-10-16 11:52 | NUR ---
Pt discharged from hospital. Instructions and prescription provided to the pt. Pt's IV discontinued, pt waiting for ride. Will CTM.
--- NOTE | 2017-10-16 11:53 | DS ---
DATE OF DISCHARGE: NO DICTATION. RENETTA DEE MD DR: LU/thee JOB#: [id number] / [id number]
--- NOTE | 2017-10-16 12:03 | DS ---
DATE OF DISCHARGE: 10/16/2017 HOSPITAL COURSE: The patient is resting slightly propped up in bed, no apparent distress. On questioning her, she said that she is feeling much, much better today, although she continued to be somewhat tired, but has had no tremors. She is definitely more awake, alert, lucid and back to her baseline. She was seen by Dr. Mcclendon, and she has had CT scan of the head as well as bilateral carotid Doppler ultrasound, both negative. His impression is that she might have a possible transient ischemic attack that has resolved and the plan is to basically discharge her back home, to continue with her current medications, and to adjust her Coumadin to maintain INR between 2-2.5. PHYSICAL EXAMINATION: GENERAL: When I examined her this morning, she looked well and was clearly in no apparent respiratory distress, slightly pale, but no jaundice, cyanosis, or thyromegaly. No jugular venous distension. No limb edema. VITAL SIGNS: Her heart rate was 53, blood pressure was 111/73, temperature was 97.6, respiratory rate was 18 and oxygen saturation was 98% on 2 liters of oxygen. HEAD, EYES, EARS, NOSE AND THROAT: Showed normocephalic, atraumatic. NECK: Supple. HEART: Showed normal first and second heart sounds. No gallop, rub or murmur. CHEST: Clear to auscultation. No crepitation or rhonchi. ABDOMEN: Distended, soft, and nontender. NEUROLOGIC: She is definitely more awake, alert, responding appropriately. All cranial nerves intact. She moves extremities without difficulty, although she is mostly bedbound, chair bound. She does manage to get out of bed to the bathroom. She managed to walk with a walker. LABORATORY DATA: Her most recent lab work showed a white cell count of 6400, hemoglobin 11.4, hematocrit 34, MCV 88 and platelet count of 178,000. Her chemistry showed that her serum sodium 140, potassium 3.8, chloride 106, bicarbonate 29, anion gap of 5, BUN 18, creatinine 1, estimated GFR was 55 mL per minute, her glucose 114, calcium was 7.9. Her serum triglycerides 125, total cholesterol 160, LDL cholesterol was 87, VLDL was 25, and HDL cholesterol was 48 and the ratio was 3. Her white cell count was 6400, hemoglobin 11, hematocrit 34, MCV 88, and platelet count of 178,000. Her prothrombin time was 22.2, INR of 2.2. Urinalysis is unremarkable and urine toxicology screen was negative. We did a CT scan of the head, basically showed no acute intracranial process and her chest x-ray showed mild cardiomegaly. Bilateral carotid Doppler showed that there is no evidence of hemodynamically significant stenosis. DISCHARGE MEDICATIONS: The patient will be discharged home to continue on following medications: Coumadin 4 mg daily, simplified from her previous regimen of 3.5 Wednesday, Wednesday, Wednesday and 7 on Wednesday, , Wednesday, Wednesday. She will continue albuterol sulfate 2.5 mg by nebulizer every 4 hours as needed, fluoxetine for Prozac 40 mg twice a day, furosemide 80 mg daily, gabapentin 900 mg twice a day, gabapentin 1200 mg at bedtime. She is on meclizine 25 mg 3 times a day; metformin 1000 mg twice a day; sotalol 80 mg twice a day; verapamil 180 mg, she takes a total of 120 mg daily. FINAL DISCHARGE DIAGNOSES: 1. Transient ischemic attack, resolved. 2. The patient has multiple other medical problems including; A. Hypertension. B. Hyperlipidemia. C. Type 2 diabetes mellitus. D. Coronary artery disease. E. Morbid obesity with obstructive sleep apnea. F. Peripheral neuropathy. RENETTA DEE MD DR: LU/thee JOB#: [id number] / [id number]
[2017-10-16 12:18] VITALS: BP 109/70
--- NOTE | 2017-10-16 12:40 | PN ---
DATE: 10/16/2017 SUBJECTIVE: The patient denies any new medical or neurological complaints. She denies headaches, visual disturbances, nausea, vomiting, chest pain, shortness of breath or palpitation, dysarthria or dysphagia. OBJECTIVE: GENERAL: Obese female, not in acute distress. VITAL SIGNS: Stable. Blood pressure 111/73, respiratory rate 18, pulse is 53, temperature 97.6, oxygen saturation is 98% on 2 liters via nasal cannula. HEENT: Normocephalic, atraumatic, otherwise unremarkable. NECK: Supple. Negative for carotid bruit, lymphadenopathy or thyromegaly. LUNGS: Clear to A and P. CARDIOVASCULAR: Regular rhythm, normal S1, S2. ABDOMEN: Soft. Bowel sounds positive. EXTREMITIES: Negative for cyanosis, clubbing or pitting edema. NEUROLOGICAL EXAM: Mental Status: The patient is alert and oriented x 3. Speech is fluent. There is no language dysfunction. Cranial nerves are intact. Motor examination revealed no focal muscle bulk was seen. The strength was 4/5 throughout. Sensory examination revealed diminished pinprick and light touch senses in stocking distributions. Deep tendon reflexes were symmetric and hypoactive with absent Achilles responses. Gait not tested. LABORATORY DATA: PT is 22.2 and INR is 2.2. IMPRESSION: 1. Possible transient ischemic attack - resolved. 2. Multiple medical problems, includes hypertension, hyperlipidemia, diabetes mellitus, coronary artery disease, obesity, chronic low back pain, sleep apnea, and peripheral neuropathy in the lower extremities. 3. Therapeutic range of INR. RECOMMENDATIONS: 1. Continue with current management initiated by Dr. Rivas along with home medications. 2. The patient may be started on warfarin again. M Bipin UBSTAMANTE MD DR: ROBERT/thee JOB#: [id number] / [id number]
--- NOTE | 2017-10-16 13:22 | NUR ---
Pt off unit via wheelchair.
[2017-10-18] MEDS ORDERED: WARFARIN 0.5 MG TABLET. PO SCH (09:00)
== END 2017-10-16 13:23 | disposition home or self-care (01) | DRG 69 ==
LOC: ER 15:01 → 1 SOUTH 18:30
PROVIDERS: ADMIT Internal Medicine; ATTEND Internal Medicine
DX: G45.9 Transient cerebral ischemic attack, unspecified (principal); E43 Unspecified severe protein-calorie malnutrition; Z68.43 Body mass index [BMI] 50.0-59.9, adult; E11.42 Type 2 diabetes mellitus with diabetic polyneuropathy; E66.01 Morbid (severe) obesity due to excess calories; E78.5 Hyperlipidemia, unspecified; I11.0 Hypertensive heart disease with heart failure; G89.29 Other chronic pain; G47.33 Obstructive sleep apnea (adult) (pediatric); I48.91 Unspecified atrial fibrillation; J45.909 Unspecified asthma, uncomplicated; I25.10 Atherosclerotic heart disease of native coronary artery without angina pectoris; I50.9 Heart failure, unspecified; Z90.49 Acquired absence of other specified parts of digestive tract; Z85.038 Personal history of other malignant neoplasm of large intestine; Z82.49 Family history of ischemic heart disease and other diseases of the circulatory system; Z87.891 Personal history of nicotine dependence; Z93.3 Colostomy status; Z95.1 Presence of aortocoronary bypass graft; Z79.899 Other long term (current) drug therapy
CPT/HCPCS: 36415; 70450; 71045; 80048; 80053; 80061; 80307; 81001; 82947; 85025; 85610; 85730; 87641; 93005; 93880; 94640; J7613; J8597; 99285-25; G0479

== ENCOUNTER → 2017-11-25 | Outpatient (CLI) | payer MEDICARE ==
[~2017-11-25] MED LIST changes: -METF10003 PO; +METF10007 PO; +WARF4TAB68 PO
--- NOTE | 2017-11-25 13:41 | RAD ---
EXAM: Bilateral knees, 3 views. HISTORY: Pain. COMPARISON: None. FINDINGS: 3 views of the bilateral knees are obtained. There is severe bilateral medial compartment joint space narrowing and subchondral sclerosis. There is moderate bilateral tricompartmental spurring. There are suspected trace to small joint effusions, the right of which is not well seen due to image projection. There is suspected slight bilateral genu varus. There are a few growth arrest lines within the proximal tibias. IMPRESSION: 1. Severe medial and moderate lateral and patellofemoral compartment osteoarthritis of both knees. 2. Suspected trace to small knee effusions. 3. Slight suspected bilateral genu varus. Electronically signed by: Loreta Fonseca MD (11/25/2017 1:37 PM) [id number]
== END | disposition home or self-care (01) ==
LOC: DXRAD 12:52
PROVIDERS: ATTEND Family Medicine
DX: M17.0 Bilateral primary osteoarthritis of knee (principal); I11.0 Hypertensive heart disease with heart failure; I50.32 Chronic diastolic (congestive) heart failure; E11.9 Type 2 diabetes mellitus without complications; E78.5 Hyperlipidemia, unspecified; E78.00 Pure hypercholesterolemia, unspecified; J45.909 Unspecified asthma, uncomplicated; M19.012 Primary osteoarthritis, left shoulder; E03.9 Hypothyroidism, unspecified; J44.9 Chronic obstructive pulmonary disease, unspecified; I48.2 Chronic atrial fibrillation; Z91.041 Radiographic dye allergy status; Z85.048 Personal history of other malignant neoplasm of rectum, rectosigmoid junction, and anus; Z88.8 Allergy status to other drugs, medicaments and biological substances; Z82.49 Family history of ischemic heart disease and other diseases of the circulatory system
CPT/HCPCS: 73562

== ENCOUNTER 2018-08-04 06:45 | Inpatient (IN) | payer MEDICARE, OTHER ==
[~2018-08-04] VITALS: Ht 165.1 cm; Wt 147.1 kg
[~2018-08-04 06:45] MED LIST changes: +HYDR-2155 PO; -HYDR-2758 PO; +HYDR-3136 PO; -HYDR-963 PO; -LOSA50TA2 PO; +LOSA50TA86 PO; +OXYC5TAB4 PO; -OXYC5TAB95 PO; -VERA180T49 PO; +VERA180T6 PO
[2018-08-04 07:20] LABS: BASO % 0 % (0-3); EOS # 0.1 x10^3/uL (0.0-0.7); EOS % 2 % (0-3); HEMATOCRIT 39.5 % (36.0-47.0); HEMOGLOBIN 12.8 g/dL (12.0-15.5); LYMPH # 1.4 x10^3/uL (1.0-4.8); LYMPH % 27 % (24-48); MEAN CORPUSCULAR HEMOGLOBIN 28 pg (25-35); MEAN CORPUSCULAR HGB CONC 33 g/dL (31-37); MEAN CORPUSCULAR VOLUME 85 fL (79-100); MONO # 0.4 x10^3/uL (0.0-1.1); MONO % 7 % (0-9); NEUT # 3.4 x10^3uL (1.8-7.7); NEUT % 64 % (31-73); PLATELET COUNT 243 x10^3/uL (140-400); RED BLOOD COUNT 4.63 x10^6/uL (3.50-5.40); RED CELL DISTRIBUTION WIDTH 20.3 % (11.5-14.5); WHITE BLOOD COUNT 5.3 x10^3/uL (4.0-11.0)
--- NOTE | 2018-08-04 07:33 | PHYS DOC ---
Past History Past Medical History: CHF, Diabetes Past Surgical History: Appendectomy Smoking: Quit Greater Than 1 Year Alcohol Use: None Drug Use: None Adult General Chief Complaint Chief Complaint: MECHANICAL FALL HPI HPI 68-year-old female presents via EMS after fall. The patient is at a care facility for rehabilitation for left hip surgery. The patient tells me she was rolling over in her bed and rolled off of the bed and fell onto the floor on her right side. She remembers the entire event. She denies hitting her head. She now has pain in the right shoulder. She describes the pain is severe. She does not complain of pain anywhere else. No history of problems with his shoulder previ ously. She denies fever or chills. Review of Systems Review of Systems Constitutional: Denies fever or chills [] Eyes: Denies change in visual acuity, redness, or eye pain [] HENT: Denies nasal congestion or sore throat [] Respiratory: Denies cough or shortness of breath [] Cardiovascular: No additional information not addressed in HPI [] GI: Denies abdominal pain, nausea, vomiting, bloody stools or diarrhea [] : Denies dysuria or hematuria [] Musculoskeletal: Right shoulder pain [] Integument: Denies rash or skin lesions [] Neurologic: Denies headache, focal weakness or sensory changes [] Endocrine: Denies polyuria or polydipsia [] All other systems were reviewed and found to be within normal limits, except as documented in this note. Current Medications Current Medications Current Medications Medications (Trade) Dose Ordered Sig/Leticia Start Time Stop Time Status Last Admin Dose Admin Fentanyl Citrate (Fentanyl 2ml Vial) 75 mcg 1X ONCE 08/04/18 07:15 08/04/18 07:16 DC 08/04/18 07:12 75 MCG Allergies Allergies Allergies Coded Allergies Type Severity Reaction Last Updated Verified adenosine Allergy Severe Anaphylaxis 12/06/14 Yes adhesive Allergy Intermediate ITCH, REDNESS WITH PLASTIC TAPE 12/06/14 Yes latex Allergy Intermediate Itching 12/06/14 Yes I S O L A T I O N *CONTACT* Allergy Unknown 12/23/15 Yes Physical Exam Physical Exam Constitutional: Well developed, morbid obesity, well nourished, no acute distress, non-toxic appearance. [] HENT: Normocephalic, atraumatic, bilateral external ears normal, oropharynx moist, no oral exudates, nose normal. [] Eyes: PERRLA, EOMI, conjunctiva normal, no discharge. [] Neck: Normal range of motion, no tenderness, supple, no stridor. [] Cardiovascular:Heart rate regular rhythm, no murmur [] Lungs & Thorax: Bilateral breath sounds clear to auscultation [] Abdomen: Bowel sounds normal, soft, no tenderness, no masses, no pulsatile masses. [] Skin: Warm, dry, no erythema, no rash. [] Back: No tenderness, no CVA tenderness. [] Extremities: Tenderness of the superior and lateral aspect of the right shoulder, no obvious deformity, no ecchymosis[] Neurologic: Alert and oriented X 3, normal motor function, normal sensory function, no focal deficits noted. [] Psychologic: Affect normal, judgement normal, mood normal. [] Current Patient Data Vital Signs Vital Signs Date Time Temp Pulse Resp B/P (MAP) Pulse Ox O2 Delivery O2 Flow Rate FiO2 08/04/18 07:12 16 94 Room Air Lab Results Laboratory Tests Test 08/04/18 06:55 White Blood Count 5.3 x10^3/uL (4.0-11.0) Red Blood Count 4.63 x10^6/uL (3.50-5.40) Hemoglobin 12.8 g/dL (12.0-15.5) Hematocrit 39.5 % (36.0-47.0) Mean Corpuscular Volume 85 fL (79-100) Mean Corpuscular Hemoglobin 28 pg (25-35) Mean Corpuscular Hemoglobin Concent 33 g/dL (31-37) Red Cell Distribution Width 20.3 % (11.5-14.5) H Platelet Count 243 x10^3/uL (140-400) Neutrophils (%) (Auto) 64 % (31-73) Lymphocytes (%) (Auto) 27 % (24-48) Monocytes (%) (Auto) 7 % (0-9) Eosinophils (%) (Auto) 2 % (0-3) Basophils (%) (Auto) 0 % (0-3) Neutrophils # (Auto) 3.4 x10^3uL (1.8-7.7) Lymphocytes # (Auto) 1.4 x10^3/uL (1.0-4.8) Monocytes # (Auto) 0.4 x10^3/uL (0.0-1.1) Eosinophils # (Auto) 0.1 x10^3/uL (0.0-0.7) Basophils # (Auto) 0.0 x10^3/uL (0.0-0.2) EKG EKG [] Radiology/Procedures Radiology/Procedures [] Impressions: Right shoulder, 3 views, 08/04/2018: HISTORY: Fall, shoulder pain There are moderate degenerative changes at the glenohumeral articulation. There is degenerative change with a periarticular ossification at the AC joint. No acute fracture or dislocation is identified. IMPRESSION: 1. Moderate degenerative change. 2. No acute bony abnormality is detected. Electronically signed by: Daniel Fay MD (08/04/2018 7:42 AM) [facility] DICTATED AND SIGNED BY: DANIEL FAY MD DATE: 08/04/18 0742 CC: LALO MORA DO; MARITZA WEEKS MD ~ Course & Med Decision Making Course & Med Decision Making Pertinent Labs and Imaging studies reviewed. (See chart for details) The patient's labs significant for elevated INR of over 6. She does not have any acute bleeding, so reverse was not indicated at this time. Her glucose is 255 but her anion gap is 2. Her x-ray is negative for fracture. The patient is having quite a bit of pain. I gave her 75 g of fentanyl IV. I discussed the patient with Dr. Rivas and he has accepted the patient for admission. [] Dragon Disclaimer Dragon Disclaimer This electronic medical record was generated, in whole or in part, using a voice recognition dictation system. Departure Departure: Impression: Primary Impression: Fall from bed, initial encounter Additional Impressions: Right shoulder injury Elevated INR Disposition: ADMITTED INPATIENT Admitting Physician: Marshal Rivas Condition: STABLE Referrals: MARITZA WEEKS MD (PCP) Problem Qualifiers Additional Impressions: Right shoulder injury Encounter type: initial encounter Qualified Codes: S49.91XA - Unspecified injury of right shoulder and upper arm, initial encounter LALO MORA DO August 04, 2018 07:33
[2018-08-04 07:38] LABS: ALBUMIN/GLOBULIN RATIO 0.4 (1.0-1.7); CALCIUM 8.6 mg/dL (8.5-10.1); GFR 55.5; POTASSIUM 3.5 mmol/L (3.5-5.1); TOTAL BILIRUBIN 0.3 mg/dL (0.2-1.0); TOTAL PROTEIN 6.8 g/dL (6.4-8.2)
--- NOTE | 2018-08-04 07:44 | RAD ---
Right shoulder, 3 views, 08/04/2018: HISTORY: Fall, shoulder pain There are moderate degenerative changes at the glenohumeral articulation. There is degenerative change with a periarticular ossification at the AC joint. No acute fracture or dislocation is identified. IMPRESSION: 1. Moderate degenerative change. 2. No acute bony abnormality is detected. Electronically signed by: Daniel Erwin MD (08/04/2018 7:42 AM) [facility]
[2018-08-04] MEDS ORDERED: ONDANSETRON PF 4 MG/2 ML VIAL. IV PRN (08:30)
[2018-08-04] MEDS ORDERED: IV NORMAL SALINE 1,000ML 1,000 ML IV ONE (08:30)
[2018-08-04 09:47] VITALS: BP 119/75
[2018-08-04] MEDS ORDERED: IPRA3AMP29 NEB (10:31)
[2018-08-04] MEDS ORDERED: ONDA4TAB12 PO (10:31)
[2018-08-04] MEDS ORDERED: DICL100G18 TP (10:31)
[2018-08-04] MEDS ORDERED: VITA1TAB19 PO (10:31)
[2018-08-04] MEDS ORDERED: PRAV80TA2 PO (10:31)
[2018-08-04] MEDS ORDERED: WARF6TAB47 PO (10:31)
[2018-08-04] MEDS ORDERED: CHOL10003 PO (10:31)
[2018-08-04] MEDS ORDERED: GUAI-112 PO (10:31)
[2018-08-04] MEDS ORDERED: ALPR0.5T6 PO (10:31)
[2018-08-04] MEDS ORDERED: VENL150C PO (10:31)
[2018-08-04] MEDS ORDERED: METO50TA6 PO (10:31)
[2018-08-04] MEDS ORDERED: DILT180C29 PO (10:31)
[2018-08-04] MEDS ORDERED: ACET-704 PO (10:31)
[2018-08-04] MEDS ORDERED: LEUC5TAB PO (10:31)
[2018-08-04] MEDS ORDERED: FURO40TA4 PO (10:31)
[2018-08-04] MEDS ORDERED: GABA-587 PO (10:31)
[2018-08-04] MEDS ORDERED: ASPI81TA50 PO (10:31)
[2018-08-04] MEDS ORDERED: ERGO500027 PO (10:31)
[2018-08-04 11:08] LABS: HYPOCHROMIA SLIGHT; PLT ESTIMATE ADEQUATE (ADEQUATE)
--- NOTE | 2018-08-04 11:57 | NUR ---
NSG NOTE; ADMISSION ADMIT TO ROOM 125 AT 0935 VIA CART ACCOMP BY EMS PERSONNEL PT LIVES AT [facility] AND HAS BEEN HAVING PROBLEMS WITH ONE OF HER SIDE RAILS WHICH GAVE WAY TODAY CAUSING HER TO FALL OUT OF THE BED HURTING HER RIGHT SHOULDER
[2018-08-04] MEDS ORDERED: DEXTROSE 50% 25 GM / 50ML DISP.SYRIN. IV PRN ×2 (12:00→17:30)
--- NOTE | 2018-08-04 15:53 | NUR ---
INR 6.7 - hold warfarin , INR ordered for 08/05 and pharmacy will monitor and adjust as needed.
[2018-08-04] MEDS ORDERED: IPRATRPIUM/ALBUTEROL 0.5/2.5MG 3 ML NEBU. NEB PRN (16:00)
[2018-08-04] MEDS: GABAPENTIN 400 MG CAPSULE. PO SCH ×2 (16:00→20:41)
[2018-08-04] MEDS ORDERED: DICLOFENAC SODIUM 1% TOPICAL GEL 100GM TUBE. TP PRN (16:00)
[2018-08-04] MEDS ORDERED: ONDANSETRON ODT 4 MG TAB.RAPDIS PO PRN (16:15)
[2018-08-04 16:27] VITALS: BP 136/89
[2018-08-04] MEDS: HYDROmorphone PF 1 MG/ML DISP.SYRIN IV PRN ×2 (16:32→20:06)
--- NOTE | 2018-08-04 17:13 | HP ---
ADMIT DATE: 08/04/2018 HISTORY OF PRESENT ILLNESS: The patient is a 68-year-old female patient, resident at [facility], who was brought to the Emergency Room after she fell. Apparently, she is at [facility] for rehabilitation after her left hip surgery. The patient basically was rolling over in her bed and rolled off the bed and fell onto the floor on her right side. She remembers the entire event. She denies hitting her head. Her main complaint is pain in her right shoulder. She described the pain as severe. She does not complain of any pain anywhere else. She has no history of any problem with her shoulder before. She was evaluated in the Emergency Room and has had x-ray done of her right shoulder, which basically showed she has had moderate degenerative changes of the glenohumeral articulation. There are degenerative changes with periarticular ossification at the acromioclavicular joint. No acute fracture or dislocation identified. The patient was also found to have a prolonged INR of 6.7. Therefore, she was admitted for pain management and to monitor her INR and obviously to treat it. We held her Coumadin, and if she showed any sign of bleeding, we will transfuse fresh frozen plasma and also vitamin K. PAST MEDICAL HISTORY: Significant for colon cancer, status post colectomy and colostomy with reversal of the colostomy done on 08/12/2015. She has trouble with her wounds healing at that time. The wound dehisced, but eventually healed. 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 Most recent left heart catheterization in 2011 showed patent TAPIA. She is also known to have hypertension, hyperlipidemia, type 2 diabetes, morbid obesity, obstructive sleep apnea, atrial fibrillation, chronic severe protein-calorie malnutrition, and bronchial asthma. PAST SURGICAL HISTORY: Significant for single vessel coronary artery bypass graft surgery, multiple left heart catheterizations, most recently colectomy and colostomy for colon cancer with reversal of the colostomy. FAMILY HISTORY: Significant for congestive heart failure, coronary artery disease. SOCIAL HISTORY: She is and lives with her . She does not smoke, drink alcohol, or use recreational drugs. She is compliant with all her medications. ALLERGIES: SHE IS ALLERGIC TO ADHESIVES AND LATEX. MEDICATIONS: She is currently on following medications; ipratropium bromide and albuterol sulfate 3 mL by nebulizer 4 times a day, Coumadin 6 mg daily, pravastatin 80 mg at bedtime, metoprolol tartrate 50 mg twice a day, diltiazem 180 mg 2 capsules once a day, aspirin 81 mg once a day, diclofenac sodium for Voltaren gel applied topically 3 times a day, Tylenol with Codeine 1 tablet every 6 hours as needed, gabapentin 400 mg 3 times a day, venlafaxine 150 mg daily, alprazolam 0.5 mg 3 times a day, furosemide 60 mg once a day, guaifenesin/pseudoephedrine for Mucinex D Extended Release 600/60 one tablet every 12 hours, ondansetron 4 mg tablet 2 tablets every 12 hours, metformin 1000 mg daily, vitamin B complex one tablet once a day, cholecalciferol for vitamin D3 of 2000 international units once a day, ergocalciferol 50,000 international units once a day, leucovorin calcium 5 mg tablet once daily. PHYSICAL EXAMINATION: GENERAL: When I examined her, she was resting flat in bed, in no apparent respiratory distress, slightly pale, but no jaundice, cyanosis, or thyromegaly. No jugular venous distention. No lower limb edema. VITAL SIGNS: Her heart rate was 80, blood pressure was 134/79, temperature was 97.4, respiratory rate was 18, and oxygen saturation was 94% on room air. HEAD, EYES, EARS, NOSE, AND THROAT: Showed normocephalic, atraumatic. NECK: Supple. HEART: Showed normal first and second heart sounds with no gallop, rub, or murmur. CHEST: Clear to auscultation. No crepitation or rhonchi. ABDOMEN: Distended, soft, nontender. NEUROLOGIC: She was awake, alert, responding appropriately. All cranial nerves intact. She moved her left upper extremity to much good extent than right upper extremity because of severe pain in her right shoulder. There was no obvious bruising or obvious deformity. She apparently mostly bedbound, chair bound. LABORATORY DATA: Her lab work on arrival showed white cell count of 5300, hemoglobin 12.8, hematocrit 39.5, MCV 85, and platelet count 243,000. Her chemistry showed serum sodium 142, potassium 3.5, chloride 103, bicarbonate 37, anion gap of 2, BUN 11, creatinine 1, estimated GFR was 55 mL per minute. Her glucose was 255, calcium was 8.6. Total bilirubin, AST, ALT were normal. Alkaline phosphatase slightly elevated. Total protein was 6.8, albumin was 2. Her prothrombin time was 61, INR of 6.7, aPTT was 48. DIAGNOSTIC DATA: Her shoulder x-ray showed that there are moderate degenerative changes of the glenohumeral articulation. There are degenerative changes with periarticular ossification at the acromioclavicular joint. No acute fracture or dislocations. PLAN: As she continued to complain of severe pain in her right shoulder, my plan is to continue to arrange for her to have a CT scan of the head, she is a little bit somnolent and also CT scan of the right shoulder. I will decide on further management accordingly. RENETTA DEE MD DR: LU/thee JOB#: [id number] / [id number]
--- NOTE | 2018-08-04 17:30 | RAD ---
CT HEAD WO CONTRAST History: Fall, altered mental status Comparison: October 14, 2017 Technique: Noncontrast CT imaging was performed of the head. Exposure: One or more of the following individualized dose reduction techniques were utilized for this examination: 1. Automated exposure control 2. Adjustment of the mA and/or kV according to patient size 3. Use of iterative reconstruction technique. Findings: There is mild motion. There is no evidence of acute intracranial hemorrhage. There is no intra-axial mass effect, midline shift, extra axial fluid collection. Dia-white differentiation of the major vascular territories is maintained. There is some patchy density of the left mastoid air cells somewhat increased. There is atherosclerotic calcification of the carotid siphons. Impression: 1. No acute intracranial abnormality is identified. Electronically signed by: Wade Goodwin MD (08/04/2018 5:27 PM) [id number]
--- NOTE | 2018-08-04 17:32 | RAD ---
CT scan of the right shoulder without contrast 08/04/2018 CLINICAL HISTORY: Fall with injury to the right shoulder. Worsening right shoulder pain. TECHNIQUE: Unenhanced, contiguous, 0.625 mm axial sections were obtained through the right shoulder. 2 mm sagittal, coronal and axial reconstructed images were obtained. One or more of the following individualized dose reduction techniques were utilized for this study: 1. Automated exposure control. 2. Adjustment of the mA and/or kV according to patient size. 3. Use of iterative reconstruction technique. FINDINGS: Comparison is made to radiographs of the right shoulder performed earlier today. No fracture or dislocation of the right shoulder is seen. Moderate to severe degenerative changes are seen involving the right glenohumeral joint and right AC joint. 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 No fracture or dislocation is seen. Electronically signed by: Charlie Mckenna MD (08/04/2018 5:29 PM) [facility]
[2018-08-04 19:49] VITALS: BP 137/80
[2018-08-04] MEDS: ALPRAZolam 0.5 MG TABLET PO SCH (20:41)
[2018-08-04] MEDS: ATORVASTATIN CALCIUM 20 MG TABLET PO SCH (20:41)
[2018-08-04] MEDS: METOPROLOL TART IMMED RELEASE 50 MG TABLET PO SCH (20:42)
[2018-08-04] MEDS: guaiFENesin/PS-EPHED 600/60MG 1 TAB TAB.ER.12H PO SCH (20:45)
[2018-08-04] MEDS: VENLAFAXINE 50 MG TABLET. PO SCH (20:46)
[2018-08-04 23:28] VITALS: BP 138/87
[2018-08-05 06:35] VITALS: BP 117/79
[2018-08-05 06:36] LABS: HEMATOCRIT 35.5 % (36.0-47.0); HEMOGLOBIN 11.5 g/dL (12.0-15.5); RED BLOOD COUNT 4.16 x10^6/uL (3.50-5.40); RED CELL DISTRIBUTION WIDTH 19.5 % (11.5-14.5); WHITE BLOOD COUNT 5.3 x10^3/uL (4.0-11.0)
[2018-08-05 06:52] LABS: ALBUMIN 1.8 g/dL (3.4-5.0); ALBUMIN/GLOBULIN RATIO 0.4 (1.0-1.7); CALCIUM 8.6 mg/dL (8.5-10.1); GFR 55.5; POTASSIUM 3.7 mmol/L (3.5-5.1); TOTAL BILIRUBIN 0.4 mg/dL (0.2-1.0); TOTAL PROTEIN 6.2 g/dL (6.4-8.2)
[2018-08-05] MEDS: metFORMIN 500 MG TABLET PO SCH (08:42)
[2018-08-05] MEDS: VITAMIN B COMPLEX CAPSULE. PO SCH (08:43)
[2018-08-05] MEDS: ACETAMINOPHEN/CODEINE 300/30MG TABLET PO PRN ×2 (08:44→17:33)
[2018-08-05] MEDS: FUROSEMIDE 40 MG TABLET PO SCH (08:44)
[2018-08-05] MEDS: METOPROLOL TART IMMED RELEASE 50 MG TABLET PO SCH ×2 (08:45→20:29)
[2018-08-05] MEDS: CHOLECALCIFEROL (VITAMIN D3) 1,000 UNIT TABLET PO SCH (08:45)
[2018-08-05] MEDS: ALPRAZolam 0.5 MG TABLET PO SCH ×3 (08:45→20:29)
[2018-08-05] MEDS: VENLAFAXINE 50 MG TABLET. PO SCH ×3 (08:46→20:28)
[2018-08-05] MEDS: GABAPENTIN 400 MG CAPSULE. PO SCH ×3 (08:46→20:28)
[2018-08-05] MEDS: LEUCOVORIN CALCIUM 5 MG TABLET PO SCH (08:47)
[2018-08-05] MEDS: guaiFENesin/PS-EPHED 600/60MG 1 TAB TAB.ER.12H PO SCH ×2 (08:47→20:28)
[2018-08-05] MEDS: INSULIN LISPRO 300 UNITS/3 ML INSULN.PEN. SQ SCH ×3 (08:52→17:35)
--- NOTE | 2018-08-05 09:55 | NUR ---
Pharmacy Warfarin Dosing Note S:Pharmacy consulted to assist with anticoagulation therapy started 08/04/18 with target INR: 2 -3 O:JUNG GUNDERSON is a 68 year old F with Atrial Fibrillation LABS: Last INR: 5.3 Last HGB: 11.5 Last HCT: 35.5 Last PLT: 208 Last dose of Hold given on at PRIOR TO ADMISSION Previous Regimen: Home dose of 6mg daily Vitamin K given: no Drug Interaction Changes: Ongoing Drug Interactions: A:INR Above desired Range. Target Range for this patient is: 2 -3 P: Warfarin dose: Hold Today at 1600 Bridge Therapy: Next INR due 08/06/18 am Pharmacy anticoagulation service will continue to follow. CHELY VILLANUEVA, 08/05/18 [id number]
[2018-08-05 11:29] VITALS: BP 104/78
[2018-08-05] MEDS ORDERED: PHYTONADIONE 10 MG/ML AMPUL. SQ ONE (13:45)
[2018-08-05 15:43] VITALS: BP 107/71
[2018-08-05 19:10] VITALS: BP 138/81
[2018-08-05] MEDS: ATORVASTATIN CALCIUM 20 MG TABLET PO SCH (20:30)
[2018-08-05 22:04] VITALS: BP 126/83
[2018-08-05 23:06] LABS: HEMOGLOBIN A1C 10.6 % (4.8-5.6)
--- NOTE | 2018-08-06 04:18 | PN ---
DATE: 08/05/2018 SUBJECTIVE: The patient is sitting comfortably in her chair, in no apparent distress. She has had no more pain in her right shoulder. She is moving it up. The range of movement is normal. Her INR continued to be high. PHYSICAL EXAMINATION: GENERAL: When I examined her, she was somewhat pale, but no jaundice, cyanosis, or thyromegaly. No jugular venous distention. No lower limb edema. VITAL SIGNS: Her heart rate was 89, blood pressure was 104/78, temperature was 97.7, respiratory rate was 20, and oxygen saturation was 93% on room air. HEAD, EYES, EARS, NOSE AND THROAT: Showed normocephalic, atraumatic. NECK: Supple. HEART: Showed normal first and second heart sounds. No gallop, rub or murmur. CHEST: Clear to auscultation. No crepitation or rhonchi. ABDOMEN: Distended, soft, nontender. NEUROLOGIC: She was awake, alert, responding appropriately. All cranial nerves intact. She moves upper extremities without difficulty. She is mostly bedbound, chair bound. LABORATORY DATA: Her lab work this morning showed a white cell count of 5300, hemoglobin 11.5, hematocrit 35.5, MCV 85 and platelet count of 208,000. ____, potassium 3.7, chloride 104, bicarbonate 36, anion gap of 2, BUN 14, creatinine 1, estimated GFR was 55 mL per minute. Her glucose was 126. Her calcium was 8.6. Total bilirubin, AST, ALT were normal. Alkaline phosphatase slightly elevated. Total protein 6.2, albumin 1.8. Her prothrombin time was 48.5, INR of 5.3. Her nasal screen for MRSA PCR was negative. ASSESSMENT: She is resident at [facility] who fell from her bed and landing on her right shoulder and developed severe pain. We did x-ray and a CT scan of the right shoulder, which both showed that she had moderate degenerative changes at glenohumeral articulation, but there is no evidence of fracture or dislocation. The patient also has a supratherapeutic INR. We held her Coumadin; however, INR continued to be prolonged, her INR this morning was 5.3. She has multiple other medical problems including coronary artery disease, hypertension, hyperlipidemia, type 2 diabetes, morbid obesity, obstructive sleep apnea, atrial fibrillation and bronchial asthma. RENETTA DEE MD DR: LU/thee JOB#: [id number] / [id number]
[2018-08-06 05:34] VITALS: BP 131/86
[2018-08-06] MEDS: ALPRAZolam 0.5 MG TABLET PO SCH ×2 (08:28→15:45)
[2018-08-06] MEDS: CHOLECALCIFEROL (VITAMIN D3) 1,000 UNIT TABLET PO SCH (08:28)
[2018-08-06] MEDS: VITAMIN B COMPLEX CAPSULE. PO SCH (08:28)
[2018-08-06] MEDS: FUROSEMIDE 40 MG TABLET PO SCH (08:29)
[2018-08-06] MEDS: METOPROLOL TART IMMED RELEASE 50 MG TABLET PO SCH (08:29)
[2018-08-06] MEDS: GABAPENTIN 400 MG CAPSULE. PO SCH ×2 (08:29→15:45)
[2018-08-06] MEDS: LEUCOVORIN CALCIUM 5 MG TABLET PO SCH (08:30)
[2018-08-06] MEDS: VENLAFAXINE 50 MG TABLET. PO SCH ×2 (08:30→15:45)
[2018-08-06] MEDS: guaiFENesin/PS-EPHED 600/60MG 1 TAB TAB.ER.12H PO SCH (08:30)
[2018-08-06] MEDS: metFORMIN 500 MG TABLET PO SCH (08:32)
[2018-08-06] MEDS: INSULIN LISPRO 300 UNITS/3 ML INSULN.PEN. SQ SCH (08:41)
[2018-08-06 11:30] VITALS: BP 108/76
[2018-08-06] MEDS ORDERED: WARF2.5T71 PO (13:55)
--- NOTE | 2018-08-06 14:31 | DS ---
DATE OF DISCHARGE: 08/06/2018 HOSPITAL COURSE: The patient is a 68-year-old female patient who is a resident at [facility] and who apparently fell from her bed, landing on her right shoulder and was evaluated in the Emergency Room. She had an x-ray and a CT scan, which showed no evidence of fracture or dislocation. She does have evidence of severe degenerative changes seen involving the right shoulder, but no fracture or dislocation. Her CT scan of the head was unremarkable with no acute intracranial abnormality identified. Initially, the patient has severe pain that she was unable to move her right shoulder. Eventually, her mobility has improved. Her INR was also supratherapeutic, in fact on admission, her INR was 6.7. She was given 2 mg of vitamin K. We held her Coumadin and today, her INR was 1.9 and a decision was made to discharge her back to [facility], who will adjust her Coumadin down to perhaps 2.5 mg as she was in 6 mg daily. PHYSICAL EXAMINATION: GENERAL: When I saw her this afternoon, she was sitting comfortably in her chair, in no apparent respiratory distress. No pallor, jaundice, cyanosis or thyromegaly. No jugular venous distension. No lower limb edema. VITAL SIGNS: Her heart rate was 83, blood pressure was 108/76, temperature was 96, respiratory rate was 20 and oxygen saturation was 93%. HEENT: Examination of the head, eyes, ears, nose and throat showed normocephalic, atraumatic. NECK: Supple. HEART: Showed normal first and second heart sounds. No gallop or murmur. CHEST: Clear to auscultation. No crepitation or rhonchi. ABDOMEN: Distended, soft, nontender. NEUROLOGIC: She is awake, alert, responding appropriately. All her cranial nerves are intact. EXTREMITIES: She moves upper extremities without difficulty. She is mostly bedbound, chair bound. LABORATORY DATA: Her lab work this morning showed her prothrombin time was 18.8, INR 1.9. Her white cell count was 5300, hemoglobin 11.5, hematocrit 36, MCV 85 and platelet count 206,000. Her chemistry showed that her serum sodium was 142, potassium 3.7, chloride 36, anion gap of 2, BUN 14, creatinine 1, estimated GFR was 55 mL per minute. Her glucose was 126, calcium was 8.6. Total bilirubin and ALT was normal. AST and alkaline phosphatase was slightly elevated. Total protein was 6.2, albumin was 1.8. Her nasal screen for MRSA by PCR was negative. DISCHARGE MEDICATIONS: She was discharged back to retirement facility to continue on Tylenol with codeine 1 tablet every 6 hours as needed, alprazolam 0.5 mg 3 times a day, aspirin 81 mg once a day, cholecalciferol for vitamin D3 2000 international unit once a day, diclofenac sodium for Voltaren gel 1 gram topically 3 times a day, diltiazem hydrochloride and she takes 360 mg once a day, ergocalciferol 50,000 international unit once a week, furosemide 60 mg p.o. daily, gabapentin 400 mg 3 times a day and Mucinex D 600 mg twice a day, ipratropium bromide, albuterol sulfate 3 mL by nebulizer 4 times a day, leucovorin calcium 5 mg daily, metformin 1000 mg daily with breakfast, metoprolol tartrate 50 mg twice a day, ondansetron 8 mg every 12 hours, pravastatin 80 mg at bedtime, venlafaxine for Effexor 150 mg daily and vitamin B complex 1 tablet once a day. She will be discharged on warfarin 2.5 mg daily. FINAL DISCHARGE DIAGNOSES: Fall, severe right shoulder pain; however, no evidence of fracture or dislocation. She does have severe degenerative changes, supratherapeutic INR, resolved. His INR this morning is 1.8. She has multiple other medical problems including hypertension, hyperlipidemia, type 2 diabetes, morbid obesity, obstructive sleep apnea, atrial fibrillation, severe protein-calorie malnutrition as well as bronchial asthma. RENETTA DEE MD DR: LU/thee JOB#: [id number] / [id number]
[2018-08-06 16:10] VITALS: BP 126/68
--- NOTE | 2018-08-06 16:38 | NUR ---
Discharge Note: JUNG GUNDERSON Discharge instructions and discharge home medications reviewed with Patient and a copy given. All questions have been answered and understanding verbalized. Discontinued lines and drains: PRESSURE DRESSING APPLIED WITH NO COMPLICATIONS. Patient discharged to [facility] with EMS via [facility].
[2018-08-07] MEDS ORDERED: CHOLECALCIFEROL (VITAMIN D3) 50,000 UNIT CAPSULE PO SCH (09:00)
== END 2018-08-06 16:43 | DRG 555 ==
LOC: ER 06:45 → 1 SOUTH 08:36
PROVIDERS: ADMIT Internal Medicine; ATTEND Internal Medicine
DX: M25.511 Pain in right shoulder (principal); E43 Unspecified severe protein-calorie malnutrition; Z68.43 Body mass index [BMI] 50.0-59.9, adult; E11.9 Type 2 diabetes mellitus without complications; E66.01 Morbid (severe) obesity due to excess calories; E78.5 Hyperlipidemia, unspecified; G47.33 Obstructive sleep apnea (adult) (pediatric); I11.0 Hypertensive heart disease with heart failure; I25.10 Atherosclerotic heart disease of native coronary artery without angina pectoris; I50.9 Heart failure, unspecified; J45.909 Unspecified asthma, uncomplicated; I48.2 Chronic atrial fibrillation; W06.XXXA Fall from bed, initial encounter; Y92.003 Bedroom of unspecified non-institutional (private) residence as the place of occurrence of the external cause; Z82.49 Family history of ischemic heart disease and other diseases of the circulatory system; Z87.891 Personal history of nicotine dependence; Z90.49 Acquired absence of other specified parts of digestive tract; Z93.3 Colostomy status; Z79.01 Long term (current) use of anticoagulants; Z85.038 Personal history of other malignant neoplasm of large intestine; Z95.1 Presence of aortocoronary bypass graft; Z79.899 Other long term (current) drug therapy; Z88.8 Allergy status to other drugs, medicaments and biological substances; Z91.040 Latex allergy status
CPT/HCPCS: 36415; 70450; 73030; 73200; 80053; 82947; 83036; 85025; 85027; 85610; 85730; 87641; 96361; 96374; J1170; J1815; J3010; J3430; 99285-25; J7030

== ENCOUNTER 2018-08-13 14:26 | Emergency (ER) | payer MEDICARE, OTHER ==
[~2018-08-13 14:26] MED LIST changes: +ACET-704 PO; +ASPI81TA50 PO; +CHOL10003 PO; +DICL100G18 TP; +DILT180C29 PO; +ERGO500027 PO; +FURO40TA4 PO; +GABA-587 PO; +GUAI-112 PO; +IPRA3AMP29 NEB; +LEUC5TAB PO; +METO50TA6 PO; +ONDA4TAB12 PO; +VENL150C PO; +VITA1TAB19 PO; +WARF2.5T71 PO; +WARF6TAB47 PO
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
[2018-08-13 16:15] VITALS: BP 131/60
== END 2018-08-13 16:15 | disposition home or self-care (01) ==
LOC: ER 14:26
DX: F43.25 Adjustment disorder with mixed disturbance of emotions and conduct (principal); F41.9 Anxiety disorder, unspecified; I50.9 Heart failure, unspecified; E11.9 Type 2 diabetes mellitus without complications; Z87.891 Personal history of nicotine dependence; Z88.8 Allergy status to other drugs, medicaments and biological substances; Z91.041 Radiographic dye allergy status; Z91.040 Latex allergy status
CPT/HCPCS: 99284

== ENCOUNTER 2018-09-01 20:21 | Inpatient (IN) | payer MEDICARE, OTHER ==
[~2018-09-01] VITALS: Ht 165.1 cm; Wt 149.0 kg
--- NOTE | 2018-09-01 20:23 | ED.ADGEN ---
Past History Past Medical History: Anxiety, Arthritis, CAD, CHF, Depression, Diabetes, Hypertension, Renal Disease, Other Past Surgical History: Appendectomy, Coronary Bypass Surgery, Other Smoking: Quit Greater Than 1 Year Alcohol Use: None Drug Use: None Adult General Chief Complaint Chief Complaint ".. I just so depressed.. My is sleeping with someone else.. Rehab ... is letting him do that... " HPI HPI Patient is a 68 year old female who presents with above hx and complaints severe depression. Pt. is a resident of [facility]. since 03/10/2018. Pt. reports she wants to , depressed that her of 46 yr is " cheating on her". Pt. currently very tearful. Pt. hx of multiple medical issues, left femur fracture, CHF, morbid obesity, diabetes, arthritis, kidney failure, hypertension, hyperlipidemia D lauren, heart disease, hypertension, gait disorder, deconditioning, DVTs, malignant neoplasm of rectum and anus elevated liver enzymes. Patient normally follows with Dr. Weeks. Pt. sent to ED for medical clearance prior to admission to [facility] Dr Sabine Mora. Review of Systems Review of Systems Pt. poor historian- crying. Constitutional: Denies fever or chills [] Eyes: Denies change in visual acuity, redness, or eye pain [] HENT: Denies nasal congestion or sore throat [] Respiratory: Denies cough or shortness of breath [] Cardiovascular: No additional information not addressed in HPI [] GI: Denies abdominal pain, nausea, vomiting, bloody stools or diarrhea [] : Denies dysuria or hematuria [] Musculoskeletal: Denies back pain or joint pain []Complaints of generalized weakness. Integument: Denies rash or skin lesions [] Neurologic: Denies headache, focal weakness or sensory changes [] Endocrine: Denies polyuria or polydipsia [] All other systems were reviewed and found to be within normal limits, except as documented in this note. Family History Family History Not currently available Current Medications Current Medications Current Medications Medications (Trade) Dose Ordered Sig/Leticia Start Time Stop Time Status Last Admin Dose Admin Ceftriaxone Sodium 1 gm/ Sodium Chloride 50 ml @ 100 mls/hr 1X ONCE 09/01/18 23:15 09/01/18 23:44 DC 09/01/18 23:17 100 MLS/HR Ceftriaxone Sodium (Rocephin Im) 1 gm 1X ONCE 09/01/18 22:45 09/01/18 22:46 DC Cephalexin HCl (Keflex) 500 mg TID 09/02/18 09:00 Enoxaparin Sodium (Lovenox 150mg Syringe) 140 mg Q12HR 09/02/18 09:00 Furosemide (Lasix) 40 mg DAILY06 09/02/18 06:00 Lactated Ringer's 1,000 ml @ 100 mls/hr Q10H 09/01/18 20:29 09/02/18 06:28 09/01/18 21:26 100 MLS/HR Magnesium Sulfate 50 ml @ 25 mls/hr 1X ONCE 09/01/18 23:15 09/02/18 01:14 09/01/18 23:19 25 MLS/HR Allergies Allergies Allergies Coded Allergies Type Severity Reaction Last Updated Verified adenosine Allergy Severe Anaphylaxis 08/04/18 Yes adhesive Allergy Intermediate ITCH, REDNESS WITH PLASTIC TAPE 08/04/18 Yes latex Allergy Intermediate Itching 08/04/18 Yes I S O L A T I O N *CONTACT* Allergy Unknown 08/04/18 Yes Physical Exam Physical Exam Constitutional: In acute emotional distress, crying . HENT: Normocephalic, atraumatic, bilateral external ears normal, oropharynx moist, no oral exudates, nose normal. [] Eyes: PERRLA, EOMI, conjunctiva normal, no discharge. [] Neck: Normal range of motion, no tenderness, supple, no stridor. More than 17 inches circum. Cardiovascular:Heart rate regular rhythm, no murmur []PMI to Lt. Lungs & Thorax: Bilateral breath sounds basilar crackles on auscultation [] Old surgery scar.s midline Abdomen: Bowel sounds normal, soft, no tenderness, no masses, no pulsatile masses. []Morbid obesity. Old surgery scars. Skin: Warm, dry, no erythema, no rash. [] Back: No tenderness, no CVA tenderness. [] Extremities: No tenderness, no cyanosis, no clubbing, ROM intact, ankle edema. [] Scar Lt hip and thigh Neurologic: Alert and oriented X 3, moves ext. on request, reports no focal deficits . Psychologic: Affect crying, judgement poor insight, mood depressed.. Current Patient Data Vital Signs Vital Signs Date Time Temp Pulse Resp B/P (MAP) Pulse Ox O2 Delivery O2 Flow Rate FiO2 09/01/18 23:38 79 15 107/63 (78) 96 Room Air 09/01/18 20:25 98.2 Lab Results Laboratory Tests Test 09/01/18 21:15 09/01/18 21:20 09/01/18 22:25 Urine Collection Type U cath Urine Color Yellow Urine Clarity Hazy Urine pH 5.5 Urine Specific [place] >=1.030 Urine Protein Trace (NEG-TRACE) Urine Glucose (UA) 250 mg/dL (NEG) Urine Ketones (Stick) Trace mg/dL (NEG) Urine Blood Small (NEG) Urine Nitrite Pos (NEG) Urine Bilirubin Neg (NEG) Urine Urobilinogen Dipstick 0.2 mg/dL (0.2 mg/dL) Urine Leukocyte Esterase Small (NEG) Urine RBC 1-2 /HPF (0-2) Urine WBC Tntc /HPF (0-4) Urine Squamous Epithelial Cells Occ /LPF Urine Bacteria Few /HPF (0-FEW) Urine Mucus Mod /LPF Urine Opiates Screen Pos (NEG) Urine Methadone Screen Neg (NEG) Urine Barbiturates Neg (NEG) Urine Phencyclidine Screen Pos (NEG) Urine Amphetamine/Methamphetamine Neg (NEG) Urine Benzodiazepines Screen Pos (NEG) Urine Cocaine Screen Neg (NEG) Urine Cannabinoids Screen Neg (NEG) Urine Ethyl Alcohol Neg (NEG) White Blood Count 7.4 x10^3/uL (4.0-11.0) Red Blood Count 4.19 x10^6/uL (3.50-5.40) Hemoglobin 12.1 g/dL (12.0-15.5) Hematocrit 37.3 % (36.0-47.0) Mean Corpuscular Volume 89 fL (79-100) Mean Corpuscular Hemoglobin 29 pg (25-35) Mean Corpuscular Hemoglobin Concent 32 g/dL (31-37) Red Cell Distribution Width 17.0 % (11.5-14.5) H Platelet Count 215 x10^3/uL (140-400) Neutrophils (%) (Auto) 64 % (31-73) Lymphocytes (%) (Auto) 28 % (24-48) Monocytes (%) (Auto) 7 % (0-9) Eosinophils (%) (Auto) 1 % (0-3) Basophils (%) (Auto) 0 % (0-3) Neutrophils # (Auto) 4.7 x10^3uL (1.8-7.7) Lymphocytes # (Auto) 2.1 x10^3/uL (1.0-4.8) Monocytes # (Auto) 0.5 x10^3/uL (0.0-1.1) Eosinophils # (Auto) 0.1 x10^3/uL (0.0-0.7) Basophils # (Auto) 0.0 x10^3/uL (0.0-0.2) Erythrocyte Sedimentation Rate 92 (0-25) H Prothrombin Time 15.0 SEC (9.4-11.4) H Prothrombin Time INR 1.4 (0.9-1.1) H PTT 27 SEC (23-33) D-Dimer (Danyelle) 0.85 mg/L (0.00-0.50) H Sodium Level 139 mmol/L (136-145) Potassium Level 3.5 mmol/L (3.5-5.1) Chloride Level 100 mmol/L (98-107) Carbon Dioxide Level 33 mmol/L (21-32) H Anion Gap 6 (6-14) Blood Urea Nitrogen 15 mg/dL (7-20) Creatinine 1.0 mg/dL (0.6-1.0) Estimated GFR (Cockcroft-Gault) 55.5 Glucose Level 244 mg/dL (70-99) H Calcium Level 8.5 mg/dL (8.5-10.1) Magnesium Level 1.4 mg/dL (1.8-2.4) L Total Bilirubin 0.3 mg/dL (0.2-1.0) Direct Bilirubin 0.1 mg/dL (0.0-0.2) Aspartate Amino Transferase (AST) 15 U/L (15-37) Alanine Aminotransferase (ALT) 16 U/L (14-59) Alkaline Phosphatase 182 U/L (46-116) H Creatine Kinase 40 U/L (26-192) Troponin I Quantitative < 0.017 ng/mL (0-0.055) GJ-Ltp-N-Type Natriuretic Peptide 1212 pg/mL (0-124) H Total Protein 6.2 g/dL (6.4-8.2) L Albumin 1.9 g/dL (3.4-5.0) L Lipase 99 U/L (73-393) EKG EKG My interpretation EKG shows a A. fib with ventricular rate of 84. Left anterior fascicular block. Low voltage. Occasional PVC.[] Radiology/Procedures Radiology/Procedures [][address] [address] IMAGING REPORT Signed PATIENT: JUNG CABEZAS ACCOUNT: [id number] : 1950 LOCATION: ER AGE: 68 SEX: F EXAM STATUS: REG ER ORD. PHYSICIAN: TOMMY PATIÑO MD REASON: CONGESTIVE HEART FAILURE, CABG, RECTAL CA PROCEDURE: PORTABLE CHEST 1V AP chest x-ray COMPARISON: Chest x-ray October 14, 2017. HISTORY: Congestive heart failure, history of rectal cancer. FINDINGS: Median sternotomy and coronary bypass again demonstrated. Cardiomegaly stable. There is probable enlargement of the left atrium. Small calcified granuloma lingula stable. Mild pulmonary vascular congestion is stable. No pulmonary edema or infiltrates. No pleural effusions. IMPRESSION: Cardiomegaly and mild pulmonary vascular congestion similar to prior x-rays from October 2017. Electronically signed by: Fauzia Cortes MD (09/01/2018 9:04 PM) [facility] DICTATED AND SIGNED BY: FAUZIA CORTES MD DATE: 09/01/182103 CC: TOMMY PATIÑO MD; MARITZA WEEKS MD ~ Course & Med Decision Making Course & Med Decision Making Pertinent Labs and Imaging studies reviewed. (See chart for details) Discussed medical issues with Dr. Rivas- advised he would follow her on the [facility] unit. Pt. admitted to Dr. Mora for eval. of her depression. [] Final Impression Final Impression 1. Depression[] 2. Urinary Tract Infection 3. Elevated D-dimer 0.85 4. Sub Therapeutic INR 1.4 5.DM 244 6. Hypomagnesium 1.4 7. Elevated Alk Phos 182 8. CHF diastolic dysfunction BNP 1,212 9. Malnutrition Alb. 1.9 10. Deconditioned 11. Morbid Obesity 12. HTN Dragon Disclaimer Dragon Disclaimer This electronic medical record was generated, in whole or in part, using a voice recognition dictation system. Discharge Summary Visit Information Final Diagnosis Problems Medical Problems: (1) Depression Status: Acute Brief Hospital Course Allergies Allergies Coded Allergies Type Severity Reaction Last Updated Verified adenosine Allergy Severe Anaphylaxis 08/04/18 Yes adhesive Allergy Intermediate ITCH, REDNESS WITH PLASTIC TAPE 08/04/18 Yes latex Allergy Intermediate Itching 08/04/18 Yes I S O L A T I O N *CONTACT* Allergy Unknown 08/04/18 Yes Vital Signs Vital Signs Date Time Temp Pulse Resp B/P (MAP) Pulse Ox O2 Delivery O2 Flow Rate FiO2 09/02/18 01:45 97.0 84 18 110/65 (80) 97 Room Air Lab Results Laboratory Tests Test 09/01/18 21:15 09/01/18 21:20 09/01/18 22:25 Urine Collection Type U cath Urine Color Yellow Urine Clarity Hazy Urine pH 5.5 Urine Specific [place] >=1.030 Urine Protein Trace (NEG-TRACE) Urine Glucose (UA) 250 mg/dL (NEG) Urine Ketones (Stick) Trace mg/dL (NEG) Urine Blood Small (NEG) Urine Nitrite Pos (NEG) Urine Bilirubin Neg (NEG) Urine Urobilinogen Dipstick 0.2 mg/dL (0.2 mg/dL) Urine Leukocyte Esterase Small (NEG) Urine RBC 1-2 /HPF (0-2) Urine WBC Tntc /HPF (0-4) Urine Squamous Epithelial Cells Occ /LPF Urine Bacteria Few /HPF (0-FEW) Urine Mucus Mod /LPF Urine Opiates Screen Pos (NEG) Urine Methadone Screen Neg (NEG) Urine Barbiturates Neg (NEG) Urine Phencyclidine Screen Pos (NEG) Urine Amphetamine/Methamphetamine Neg (NEG) Urine Benzodiazepines Screen Pos (NEG) Urine Cocaine Screen Neg (NEG) Urine Cannabinoids Screen Neg (NEG) Urine Ethyl Alcohol Neg (NEG) White Blood Count 7.4 x10^3/uL (4.0-11.0) Red Blood Count 4.19 x10^6/uL (3.50-5.40) Hemoglobin 12.1 g/dL (12.0-15.5) Hematocrit 37.3 % (36.0-47.0) Mean Corpuscular Volume 89 fL (79-100) Mean Corpuscular Hemoglobin 29 pg (25-35) Mean Corpuscular Hemoglobin Concent 32 g/dL (31-37) Red Cell Distribution Width 17.0 % (11.5-14.5) Platelet Count 215 x10^3/uL (140-400) Neutrophils (%) (Auto) 64 % (31-73) Lymphocytes (%) (Auto) 28 % (24-48) Monocytes (%) (Auto) 7 % (0-9) Eosinophils (%) (Auto) 1 % (0-3) Basophils (%) (Auto) 0 % (0-3) Neutrophils # (Auto) 4.7 x10^3uL (1.8-7.7) Lymphocytes # (Auto) 2.1 x10^3/uL (1.0-4.8) Monocytes # (Auto) 0.5 x10^3/uL (0.0-1.1) Eosinophils # (Auto) 0.1 x10^3/uL (0.0-0.7) Basophils # (Auto) 0.0 x10^3/uL (0.0-0.2) Erythrocyte Sedimentation Rate 92 (0-25) Prothrombin Time 15.0 SEC (9.4-11.4) Prothromb Time International Ratio 1.4 (0.9-1.1) Activated Partial Thromboplast Time 27 SEC (23-33) D-Dimer (Danyelle) 0.85 mg/L (0.00-0.50) Sodium Level 139 mmol/L (136-145) Potassium Level 3.5 mmol/L (3.5-5.1) Chloride Level 100 mmol/L (98-107) Carbon Dioxide Level 33 mmol/L (21-32) Anion Gap 6 (6-14) Blood Urea Nitrogen 15 mg/dL (7-20) Creatinine 1.0 mg/dL (0.6-1.0) Estimated GFR (Cockcroft-Gault) 55.5 Glucose Level 244 mg/dL (70-99) Calcium Level 8.5 mg/dL (8.5-10.1) Magnesium Level 1.4 mg/dL (1.8-2.4) Total Bilirubin 0.3 mg/dL (0.2-1.0) Direct Bilirubin 0.1 mg/dL (0.0-0.2) Aspartate Amino Transf (AST/SGOT) 15 U/L (15-37) Alanine Aminotransferase (ALT/SGPT) 16 U/L (14-59) Alkaline Phosphatase 182 U/L (46-116) Creatine Kinase 40 U/L (26-192) Troponin I Quantitative < 0.017 ng/mL (0-0.055) HK-Dnt-D-Type Natriuretic Peptide 1212 pg/mL (0-124) Total Protein 6.2 g/dL (6.4-8.2) Albumin 1.9 g/dL (3.4-5.0) Lipase 99 U/L (73-393) Brief Hospital Course Ms. Cabezas is a 68 old female who presented with depression. Admitted Dr. Mora and consult to Dr. Rivas for medical issues. Cardiology consult for CHF. Discharge Information Condition at Discharge: Improved Dischare Medications Current Medications Lactated Ringer's 1,000 ml @ 100 mls/hr Q10H IV Last administered on 09/01/18at 21:26; Start 09/01/18 at 20:29; Stop 09/02/18 at 06:28 Ceftriaxone Sodium (Rocephin Im) 1 gm 1X ONCE IM ; Start 09/01/18 at 22:45; Stop 09/01/18 at 22:46; Status DC Enoxaparin Sodium (Lovenox 150mg Syringe) 140 mg 1X ONCE SQ Last administered on 09/01/18at 23:18; Start 09/01/18 at 22:45; Stop 09/01/18 at 22:46; Status DC Furosemide (Lasix) 40 mg 1X ONCE IVP Last administered on 09/01/18at 23:19; Start 09/01/18 at 23:15; Stop 09/01/18 at 23:16; Status DC Magnesium Sulfate 50 ml @ 25 mls/hr 1X ONCE IV Last administered on 09/01/18at 23:19; Start 09/01/18 at 23:15; Stop 09/02/18 at 01:14; Status DC Ceftriaxone Sodium 1 gm/ Sodium Chloride 50 ml @ 100 mls/hr 1X ONCE IV Last administered on 09/01/18at 23:17; Start 09/01/18 at 23:15; Stop 09/01/18 at 23:44; Status DC Enoxaparin Sodium (Lovenox 150mg Syringe) 140 mg Q12HR SQ ; Start 09/02/18 at 09:00 Furosemide (Lasix) 40 mg DAILY06 PO ; Start 09/02/18 at 06:00 Cephalexin HCl (Keflex) 500 mg TID PO ; Start 09/02/18 at 09:00 Acetaminophen (Tylenol) 650 mg PRN Q6HRS PRN PO PAIN / TEMP; Start 09/02/18 at 02:30 Multi-Ingredient Ointment (Analgesic [place]) 1 aaron PRN QID PRN TP MUSCLE PAIN; Start 09/02/18 at 02:30 Al Hydroxide/Mg Hydroxide (Mylanta Plus Xs) 15 ml PRN AFTMEALHC PRN PO DYSPEPSIA; Start 09/02/18 at 02:30 Magnesium Hydroxide (Milk Of Magnesia) 2,400 mg PRN QHS PRN PO CONSTIPATION; Start 09/02/18 at 02:30 Vitamin D (Vitamin D3) 2,000 unit DAILY PO ; Start 09/02/18 at 09:00 Diclofenac Sodium (Voltaren) 1 aaron TID TP ; Start 09/02/18 at 09:00 Furosemide (Lasix) 20 mg DAILYBFRLUN PRN PO heart failure; Start 09/02/18 at 02:45 Gabapentin (Neurontin) 400 mg TID PO ; Start 09/02/18 at 09:00 Guaifenesin (Mucinex D Er 600-60 Mg) 1 tab Q12HR PO ; Start 09/02/18 at 09:00 Albuterol/ Ipratropium (Duoneb) 3 ml QID PRN NEB SHORTNESS OF AIR/WHEEZING; S tart 09/02/18 at 02:45; Status UNV Non-Formulary Medication (Acetaminophen With Codeine (Tylenol With Codeine #3 Tablet)) 1 tab Q6HRS PRN PO PAIN; Start 09/02/18 at 02:45; Status UNV Non-Formulary Medication (Aspirin (Aspir-Low)) 1 tab DAILY PO ; Start 09/02/18 at 09:00; Status UNV Non-Formulary Medication (Diltiazem Hcl (Diltiazem 24HR Cd)) 2 cap DAILY PO ; Start 09/02/18 at 09:00; Status UNV Non-Formulary Medication (Ergocalciferol (Vitamin D2) (Vitamin D2)) 1 cap WEEKLY ON WEDNESDAY PO ; Start 09/02/18 at 02:45; Status UNV Non-Formulary Medication (Furosemide ) 40 mg DAILY PO ; Start 09/02/18 at 09:00; Status UNV Non-Formulary Medication (Leucovorin Calcium ) 5 mg DAILY PO ; Start 09/02/18 at 09:00; Status UNV Non-Formulary Medication (Metformin Hcl ) 1,000 mg DAILYWBKFT PO ; Start 09/02/18 at 08:00; Status UNV Non-Formulary Medication (Metoprolol Tartrate ) 1 tab BID PO ; Start 09/02/18 at 09:00; Status UNV Non-Formulary Medication (Ondansetron (Ondansetron Odt)) 2 tab Q12HR PRN PO NAUSEA; Start 09/02/18 at 02:45; Status UNV Non-Formulary Medication (Pravastatin Sodium ) 1 tab QHS PO ; Start 09/02/18 at 21:00; Status UNV Non-Formulary Medication (Venlafaxine Hcl (Effexor Xr)) 1 cap DAILY PO ; Start 09/02/18 at 09:00; Status UNV Non-Formulary Medication (Vitamin B Complex (B Complex)) 1 each DAILY PO ; Start 09/02/18 at 09:00; Status UNV Non-Formulary Medication (Warfarin Sodium ) 5 mg DAILYWSUP PO ; Start 09/02/18 at 17:00; Status UNV Active Scripts Active Warfarin Sodium 2.5 Mg Tablet 2.5 Mg PO DAILY 30 Days Reported Celexa (Citalopram Hydrobromide) 20 Mg Tablet 20 Mg PO DAILY Alprazolam 1 Mg Tablet 1 Mg PO PRN Q4HRS PRN Warfarin Sodium 5 Mg Tablet 5 Mg PO DAILYWSUP Furosemide 20 Mg Tablet 20 Mg PO DAILYBFRLUN PRN Voltaren (Diclofenac Sodium) 100 Gm Gel..gram. 1 Gm TP TID Vitamin D3 (Cholecalciferol (Vitamin D3)) 1,000 Unit Tablet 2 Tab PO DAILY Vitamin D2 (Ergocalciferol (Vitamin D2)) 50,000 Unit Capsule 1 Cap PO WEEKLY ON WEDNESDAY Pravastatin Sodium 80 Mg Tablet 1 Tab PO QHS Ondansetron Odt (Ondansetron) 4 Mg Tab.rapdis 2 Tab PO Q12HR PRN Mucinex D Er 600-60 Mg Tablet (Guaifenesin/Pseudoephedrne Hcl) 1 Each Tab.er.12h 1 Each PO Q12HR Metoprolol Tartrate 50 Mg Tablet 1 Tab PO BID Leucovorin Calcium 5 Mg Tablet 5 Mg PO DAILY Gabapentin (Gabapentin) 400 Mg Capsule 400 Mg PO TID Furosemide 40 Mg Tablet 40 Mg PO DAILY Effexor Xr (Venlafaxine Hcl) 150 Mg Cap.er.24h 1 Cap PO DAILY Duoneb 0.5-3(2.5) Mg/3 Ml (Albuterol/Ipratropium) 3 Ml Ampul.neb 3 Ml NEB QID PRN Diltiazem 24HR Cd (Diltiazem Hcl) 180 Mg Cap.er.24h 2 Cap PO DAILY B Complex (Vitamin B Complex) 1 Each Tablet 1 Each PO DAILY Aspir-Low (Aspirin) 81 Mg Tablet.dr 1 Tab PO DAILY Alprazolam 0.5 Mg Tablet 1 Tab PO TID Tylenol With Codeine #3 Tablet (Acetaminophen With Codeine) 1 Each Tablet 1 Tab PO Q6HRS PRN Metformin Hcl 1,000 Mg Tablet 1,000 Mg PO DAILYWCRISTIAN Georges Disclaimer This chart was dictated in whole or in part using Voice Recognition software in a busy, high-work load, and often noisy Emergency Department environment. It may contain unintended and wholly unrecognized errors or omissions. TOMMY PATIÑO MD Sep 01, 2018 20:23
[2018-09-01] MEDS ORDERED: IV RINGERS SOLUTION,LACTATED 1,000 ML IV SCH (20:29)
--- NOTE | 2018-09-01 21:07 | RAD ---
AP chest x-ray COMPARISON: Chest x-ray October 14, 2017. HISTORY: Congestive heart failure, history of rectal cancer. FINDINGS: Median sternotomy and coronary bypass again demonstrated. Cardiomegaly stable. There is probable enlargement of the left atrium. Small calcified granuloma lingula stable. Mild pulmonary vascular congestion is stable. No pulmonary edema or infiltrates. No pleural effusions. IMPRESSION: Cardiomegaly and mild pulmonary vascular congestion similar to prior x-rays from October 2017. Electronically signed by: Dawit Cortes MD (09/01/2018 9:04 PM) [facility]
[2018-09-01 21:57] LABS: BARBITURATES NEG (NEG); BENZODIAZEPINES POS (NEG); CANNABINOIDS NEG (NEG); COCAINE NEG (NEG); METHADONE NEG (NEG); OPIATES POS (NEG); PHENCYCLIDINE POS (NEG)
[2018-09-01 21:58] LABS: AMPHETAMINE/METHAMPHETAMINE NEG (NEG)
[2018-09-01 21:59] LABS: BASO % 0 % (0-3); EOS # 0.1 x10^3/uL (0.0-0.7); EOS % 1 % (0-3); HEMATOCRIT 37.3 % (36.0-47.0); HEMOGLOBIN 12.1 g/dL (12.0-15.5); LYMPH # 2.1 x10^3/uL (1.0-4.8); LYMPH % 28 % (24-48); MEAN CORPUSCULAR HEMOGLOBIN 29 pg (25-35); MEAN CORPUSCULAR HGB CONC 32 g/dL (31-37); MEAN CORPUSCULAR VOLUME 89 fL (79-100); MONO # 0.5 x10^3/uL (0.0-1.1); MONO % 7 % (0-9); NEUT # 4.7 x10^3uL (1.8-7.7); NEUT % 64 % (31-73); PLATELET COUNT 215 x10^3/uL (140-400); RED BLOOD COUNT 4.19 x10^6/uL (3.50-5.40); WHITE BLOOD COUNT 7.4 x10^3/uL (4.0-11.0)
[2018-09-01 22:05] LABS: BILIRUBIN,URINE NEG (NEG); CLARITY,URINE HAZY; COLOR,URINE YELLOW; GLUCOSE,URINE 250 mg/dL (NEG)
[2018-09-01 22:06] LABS: BACTERIA,URINE FEW /HPF (0-FEW); NITRITE,URINE POS (NEG); SQUAMOUS EPITHELIAL CELL,UR OCC /LPF; UROBILINOGEN,URINE 0.2 mg/dL (0.2 mg/dL); WBC,URINE TNTC /HPF (0-4)
[2018-09-01] MEDS ORDERED: FURO20TA3 PO (22:25)
[2018-09-01] MEDS ORDERED: ALPR1TAB6 PO (22:25)
[2018-09-01] MEDS ORDERED: WARF-31 PO (22:25)
[2018-09-01] MEDS ORDERED: CITA20TA9 PO (22:26)
[2018-09-01] MEDS ORDERED: ENOXAPARIN ** NOTE DOSE ** SYRINGE SQ ONE (22:45)
[2018-09-01] MEDS ORDERED: cefTRIAXone IM 1 GM VIAL IM ONE (22:45)
[2018-09-01 22:50] LABS: ALBUMIN 1.9 g/dL (3.4-5.0); CALCIUM 8.5 mg/dL (8.5-10.1); DIRECT BILIRUBIN 0.1 mg/dL (0.0-0.2); GFR 55.5; MAGNESIUM 1.4 mg/dL (1.8-2.4); POTASSIUM 3.5 mmol/L (3.5-5.1); TOTAL BILIRUBIN 0.3 mg/dL (0.2-1.0); TOTAL PROTEIN 6.2 g/dL (6.4-8.2)
[2018-09-01 23:09] LABS: SEDIMENTATION RATE 92 (0-25)
[2018-09-01] MEDS ORDERED: FUROSEMIDE 40 MG/4 ML VIAL IVP ONE (23:15)
[2018-09-01] MEDS ORDERED: MAGNESIUM SULFATE 2GM 50 ML IV ONE (23:15)
[2018-09-02 01:45] VITALS: BP 110/65
[2018-09-02] MEDS ORDERED: MAGNESIUM HYDROXIDE 2,400 MG/30 ML ORAL.SUSP. PO PRN (02:30)
[2018-09-02] MEDS ORDERED: METHYL SALICYLATE/MENTHOL TOPICAL OINTMENT 29GM TUBE. TP PRN (02:30)
[2018-09-02] MEDS ORDERED: ACETAMINOPHEN 325 MG TABLET PO PRN (02:30)
[2018-09-02] MEDS ORDERED: MAG HYDROX/AL HYDROX/SIMETH 30 ML ORAL.SUSP PO PRN (02:30)
[2018-09-02] MEDS ORDERED: ONDANSETRON ODT 4 MG TAB.RAPDIS PO PRN (02:45)
[2018-09-02] MEDS ORDERED: ALBUTEROL SULFATE 2.5 MG/3 ML NEBU. NEB PRN (02:45)
[2018-09-02] MEDS ORDERED: FUROSEMIDE 20 MG TABLET PO PRN (02:45)
[2018-09-02] MEDS: FUROSEMIDE 40 MG TABLET PO SCH (05:42)
[2018-09-02 06:10] VITALS: BP 118/74
[2018-09-02 08:11] LABS: BASO % 1 % (0-3); CALCIUM 8.1 mg/dL (8.5-10.1); EOS # 0.1 x10^3/uL (0.0-0.7); EOS % 1 % (0-3); GFR 55.5; HEMATOCRIT 35.3 % (36.0-47.0); HEMOGLOBIN 11.6 g/dL (12.0-15.5); LYMPH # 1.4 x10^3/uL (1.0-4.8); LYMPH % 29 % (24-48); MEAN CORPUSCULAR HEMOGLOBIN 29 pg (25-35); MEAN CORPUSCULAR HGB CONC 33 g/dL (31-37); MEAN CORPUSCULAR VOLUME 88 fL (79-100); MONO # 0.5 x10^3/uL (0.0-1.1); MONO % 9 % (0-9); NEUT % 60 % (31-73); PLATELET COUNT 176 x10^3/uL (140-400); POTASSIUM 3.2 mmol/L (3.5-5.1); RED BLOOD COUNT 4.02 x10^6/uL (3.50-5.40); RED CELL DISTRIBUTION WIDTH 16.8 % (11.5-14.5)
[2018-09-02 08:43] LABS: MAGNESIUM 1.5 mg/dL (1.8-2.4)
[2018-09-02] MEDS ORDERED: ENOXAPARIN ** NOTE DOSE ** SYRINGE SQ SCH (09:00)
[2018-09-02] MEDS ORDERED: FUROSEMIDE 40 MG PO SCH (09:00)
[2018-09-02] MEDS: VITAMIN B COMPLEX CAPSULE. PO SCH (09:17)
[2018-09-02] MEDS: ASPIRIN 81 MG TAB.CHEW PO SCH (09:18)
[2018-09-02] MEDS: CEPHALEXIN 250 MG CAPSULE PO SCH ×3 (09:18→19:41)
[2018-09-02] MEDS: metFORMIN 500 MG TABLET PO SCH ×2 (09:18→16:56)
[2018-09-02] MEDS: CHOLECALCIFEROL (VITAMIN D3) 1,000 UNIT TABLET PO SCH (09:18)
[2018-09-02] MEDS: guaiFENesin/PS-EPHED 600/60MG 1 TAB TAB.ER.12H PO SCH ×2 (09:19→19:41)
[2018-09-02] MEDS: METOPROLOL TART IMMED RELEASE 50 MG TABLET PO SCH ×2 (09:19→19:42)
[2018-09-02] MEDS: VENLAFAXINE 50 MG TABLET. PO SCH ×2 (09:19→12:55)
[2018-09-02] MEDS: LEUCOVORIN CALCIUM 5 MG TABLET PO SCH (09:20)
[2018-09-02] MEDS: ENOXAPARIN ** NOTE DOSE ** SYRINGE SQ SCH ×2 (09:21→20:45)
[2018-09-02] MEDS: DICLOFENAC SODIUM 1% TOPICAL GEL 100GM TUBE. TP SCH ×4 (09:32→19:44)
[2018-09-02] MEDS: GABAPENTIN 400 MG CAPSULE. PO SCH ×3 (09:32→19:48)
[2018-09-02 15:51] VITALS: BP 112/65
[2018-09-02] MEDS ORDERED: WARFARIN 5 MG TABLET. PO ONE (16:00)
[2018-09-02] MEDS: LACTOBACILLUS RHAMNOSUS GG 1 CAPSULE. PO SCH (19:47)
[2018-09-02] MEDS: POTASSIUM CHLORIDE 20 MEQ TABLET.ER. PO SCH (19:48)
[2018-09-02] MEDS: ATORVASTATIN CALCIUM 20 MG TABLET PO SCH (19:48)
[2018-09-02] MEDS: MAGNESIUM OXIDE 400 MG TABLET PO SCH (19:48)
[2018-09-02] MEDS ORDERED: SERTRALINE 25 MG TABLET. PO SCH (21:00)
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
--- NOTE | 2018-09-02 23:14 | CONS ---
DATE OF CONSULTATION: 09/02/2018 REASON FOR CONSULTATION: Medical management. HISTORY OF PRESENT ILLNESS: The patient is a 68-year-old female patient, a resident at [facility] who presented to the Emergency Room of [facility] with a complaint of severe depression. She has been residing at [facility] since 03/10/2018. She stated that she wants to , depressed that her of 46 years is cheating on her. She was very tearful. He apparently met his high school sweetheart and basically is sleeping with her and apparently threatening to divorce her. She was admitted for inpatient psychiatric stabilization. PAST MEDICAL HISTORY: Significant for colon cancer, status post colectomy and colostomy with reversal of the colostomy done on 08/12/2015. She had trouble with her wounds healing at that time, the wound dehisced but eventually healed. Single-vessel coronary artery bypass surgery in 2008 with TAPIA to the left anterior descending. Most recent left heart catheterization in 2011 showed patent TAPIA. She is also known to have hypertension, hyperlipidemia, type 2 diabetes, morbid obesity, obstructive sleep apnea, atrial fibrillation, chronic severe protein-calorie malnutrition and bronchial asthma. PAST SURGICAL HISTORY: Significant for single-vessel coronary artery bypass surgery, multiple left heart catheterizations, colectomy, colostomy and colon cancer at the base of the colostomy. FAMILY HISTORY: Significant for congestive heart failure and coronary artery disease. SOCIAL HISTORY: She apparently and has been living at [facility] with her who apparently met his high school sweetheart. She does not smoke, drink alcohol or use recreational drugs. She is compliant with all her medications. ALLERGIES: She is allergic to ADHESIVES and LATEX. MEDICATIONS: She is currently on the following medications: Ipratropium bromide, albuterol sulfate 3 mL by nebulizer 4 times a day, Coumadin 2.5 mg and Coumadin 5 mg with supper. She is on pravastatin 80 mg at bedtime, metoprolol tartrate 50 mg twice a day, diltiazem hydrochloride extended release 180 mg, she takes 2 capsules daily, aspirin 81 mg once a day, diclofenac sodium 1 gram topically 3 times a day, Tylenol with Codeine 1 tablet every 6 hours, gabapentin 400 mg 3 times a day, Celexa 20 mg daily, venlafaxine 150 mg daily, alprazolam 0.5 mg 3 times a day, alprazolam 1 mg every 4 hours, furosemide 40 mg daily, Mucinex extended release 1 tablet twice a day, ondansetron 8 mg every 12 hours, metformin 1000 mg daily, vitamin B complex 1 tablet once a day, cholecalciferol 2000 international units once a day, and ergocalciferol 50,000 units p.o. weekly, leucovorin calcium 5 mg daily. REVIEW OF SYSTEMS: As per history of present illness. PHYSICAL EXAMINATION: GENERAL: On examining her, she was sitting comfortably in her wheelchair, in no apparent respiratory distress, slightly pale, but no jaundice, cyanosis or thyromegaly. No jugular venous distension. No limb edema. VITAL SIGNS: Her heart rate was 84, blood pressure was 118/74, temperature was 98, respiratory rate was 18 and oxygen saturation was 97% on 2 liters of oxygen by nasal cannula. HEAD, EYES, EARS, NOSE AND THROAT: Showed normocephalic, atraumatic. NECK: Supple. HEART: Showed normal first and second heart sounds. No gallop, rub or murmur. CHEST: Clear to auscultation. No crepitation or rhonchi. ABDOMEN: Distended, soft, tender. No guarding or rigidity. No organomegaly. All hernial orifices intact. Bowel sounds normal. NEUROLOGIC: She is awake, alert, responding appropriately. All cranial nerves intact. She moves upper extremities without difficulty. She is mostly bedbound, wheelchair bound. LABORATORY DATA: Showed a white cell count of 7400, hemoglobin 12, hematocrit 37, MCV 89 and platelet count 215,000. Her chemistry showed a serum sodium 139, potassium was 3.5, chloride 100, bicarbonate 33, anion gap of 6, BUN 15, creatinine 1, estimated GFR was 55 mL per minute. Her glucose was 144, calcium was 8.5, magnesium was 1.4. Serum iron was 59, TIBC was 299. Iron saturation was 20%. Total bilirubin, AST, ALT, alkaline phosphatase were normal. His CK was only 40. Beta natriuretic peptide was 1200. Total protein was 6.2, albumin 1.9. Her serum lipase was 99 and TSH was normal at 1.422. Her prothrombin time was 15, INR 1.4, aPTT was 27, and her D-dimer was 0.85. Her urinalysis showed the urine was yellow, hazy with a pH of 5.5, specific gravity of 1.030 with a trace of protein, a large amount of glucose, trace of ketones, small amount of blood, positive for nitrite, negative for bilirubin, small amount of leukocyte esterase, 1-2 rbc's, too numerous to count wbc's and few bacteria. Her toxic screen was positive for opiates as well as phencyclidine and benzodiazepine; negative for methadone, barbiturates, amphetamine, methamphetamine, cocaine, cannabinoids and alcohol. Her chest x-ray showed that the patient has median sternotomy and coronary bypass again demonstrated. She has cardiomegaly that is stable. There is probable enlargement of left atrium, a small calcified granuloma and lingula stable, mild pulmonary vascular congestion is stable. No pulmonary edema or infiltrate. No pleural effusions. ASSESSMENT AND PLAN: In summary, this is a 68-year-old female patient who was admitted with severe depression, wanting to , as her of 46 years is now cheating on her. She has a multitude of medical problems, which included bronchial asthma, chronic atrial fibrillation, morbid obesity, obstructive sleep apnea, type 2 diabetes, hyperlipidemia, hypertension. Her INR is subtherapeutic, so we will continue with Lovenox and check daily PT/INR and discontinue her Lovenox once the INR is equal to or more than 2. She has also hypokalemia and hypomagnesemia that I will replenish. She has a UTI for which she is on cephalexin. I would increase the diclofenac to 2 grams 4 times a day as needed to control her arthritis and arthralgias. Thank you, Dr. Mora for allowing me to participate in the care of this patient. RENETTA DEE MD DR: LU/thee JOB#: [id number] / [id number]
[2018-09-03] MEDS: FUROSEMIDE 40 MG TABLET PO SCH (05:45)
[2018-09-03 06:12] VITALS: BP 109/69
[2018-09-03] MEDS: LEUCOVORIN CALCIUM 5 MG TABLET PO SCH (08:19)
[2018-09-03] MEDS: VITAMIN B COMPLEX CAPSULE. PO SCH (08:19)
[2018-09-03] MEDS: ASPIRIN 81 MG TAB.CHEW PO SCH (08:20)
[2018-09-03] MEDS: metFORMIN 500 MG TABLET PO SCH ×2 (08:20→16:43)
[2018-09-03] MEDS: CHOLECALCIFEROL (VITAMIN D3) 1,000 UNIT TABLET PO SCH (08:20)
[2018-09-03] MEDS: METOPROLOL TART IMMED RELEASE 50 MG TABLET PO SCH ×2 (08:20→19:50)
[2018-09-03] MEDS: CEPHALEXIN 250 MG CAPSULE PO SCH ×3 (08:20→19:49)
[2018-09-03] MEDS: POTASSIUM CHLORIDE 20 MEQ TABLET.ER. PO SCH ×2 (08:21→19:49)
[2018-09-03] MEDS: MAGNESIUM OXIDE 400 MG TABLET PO SCH ×2 (08:21→19:50)
[2018-09-03] MEDS: LACTOBACILLUS RHAMNOSUS GG 1 CAPSULE. PO SCH ×2 (08:21→19:49)
[2018-09-03] MEDS: guaiFENesin/PS-EPHED 600/60MG 1 TAB TAB.ER.12H PO SCH ×2 (08:24→19:50)
[2018-09-03] MEDS: ENOXAPARIN ** NOTE DOSE ** SYRINGE SQ SCH ×2 (08:25→19:55)
[2018-09-03] MEDS: GABAPENTIN 400 MG CAPSULE. PO SCH ×3 (08:28→19:54)
[2018-09-03] MEDS: DICLOFENAC SODIUM 1% TOPICAL GEL 100GM TUBE. TP SCH ×4 (08:28→19:49)
[2018-09-03] MEDS ORDERED: VENLAFAXINE 100 MG TABLET. PO SCH (09:00)
[2018-09-03 09:08] LABS: HEMOGLOBIN A1C 9.7 % (4.8-5.6)
[2018-09-03 15:44] VITALS: BP 100/69
[2018-09-03] MEDS ORDERED: WARFARIN 7.5 MG TABLET. PO ONE (16:00)
[2018-09-03] MEDS: ATORVASTATIN CALCIUM 20 MG TABLET PO SCH (19:49)
--- NOTE | 2018-09-03 21:59 | PDOC ---
Exam Note: Joe Note: Please also refer to the separate dictated note~for this date of service dictated separately.~Patient seen individually. Discussed the patient with Nursing staff reviewed the chart.~Reviewed interim history and current functioning. Reviewed vital signs,~Labs/ Radiology~and current medications noted below. Continue current treatment with the changes noted in the dictated addendum note Assessment: Vital Signs/I&O: Vital Signs Date Time Temp Pulse Resp B/P (MAP) Pulse Ox O2 Delivery O2 Flow Rate FiO2 09/03/18 19:50 79 100/69 09/03/18 15:44 97.2 16 97 Room Air 09/02/18 06:10 2.0 I & O 09/02/18 09/02/18 09/03/18 15:00 23:00 07:00 Intake Total 720 ml 360 ml Balance 720 ml 360 ml Labs: Laboratory Tests Test 09/03/18 07:14 09/03/18 07:40 Glucose (Fingerstick) 260 mg/dL (70-99) H Prothrombin Time 12.9 SEC (9.4-11.4) H Prothrombin Time INR 1.2 (0.9-1.1) H Current Medications: Meds: Current Medications Medications (Trade) Dose Ordered Sig/Letiica Route PRN Reason Start Time Stop Time Status Last Admin Dose Admin Venlafaxine HCl (Effexor) 100 mg DAILY PO 09/03/18 09:00 09/03/18 19:09 DC 09/03/18 08:28 Enoxaparin Sodium (Lovenox 150mg Syringe) 150 mg Q12HR SQ 09/03/18 21:00 09/03/18 19:55 Warfarin Sodium (Coumadin) 7.5 mg 1X WARF ONCE PO 09/03/18 16:00 09/03/18 16:02 DC 09/03/18 16:16 I have reviewed the current psychotropics carefully including drug interactions. Risk benefit ratio favors no change other than as noted in my dictated progress note. Diagnosis: Problems: (1) Osteoarthritis (2) Left knee pain (3) GI bleed (4) Nausea and vomiting (5) Laceration (6) Nausea (7) Diastolic heart failure (8) Head injury (9) Encephalopathy acute (10) Head concussion (11) Hypokalemia (12) Dehydration (13) Anxiety disorder (14) Major depressive disorder, recurrent episode (15) Hematoma (16) Impulse control disorder (17) COPD, frequent exacerbations (18) Vertigo (19) Transient ischemic attack (20) Elevated INR (21) Right shoulder pain (22) Supratherapeutic INR PATRICIA NOE MD Sep 03, 2018 21:59
[2018-09-04] MEDS: FUROSEMIDE 40 MG TABLET PO SCH (05:28)
[2018-09-04 06:11] VITALS: BP 117/74
[2018-09-04] MEDS: CHOLECALCIFEROL (VITAMIN D3) 1,000 UNIT TABLET PO SCH (08:01)
[2018-09-04] MEDS: VITAMIN B COMPLEX CAPSULE. PO SCH (08:01)
[2018-09-04] MEDS: metFORMIN 500 MG TABLET PO SCH ×2 (08:01→17:24)
[2018-09-04] MEDS: POTASSIUM CHLORIDE 20 MEQ TABLET.ER. PO SCH ×2 (08:02→20:54)
[2018-09-04] MEDS: CEPHALEXIN 250 MG CAPSULE PO SCH ×3 (08:02→20:54)
[2018-09-04] MEDS: MAGNESIUM OXIDE 400 MG TABLET PO SCH ×2 (08:02→20:54)
[2018-09-04] MEDS: LACTOBACILLUS RHAMNOSUS GG 1 CAPSULE. PO SCH ×2 (08:02→20:54)
[2018-09-04] MEDS: METOPROLOL TART IMMED RELEASE 50 MG TABLET PO SCH ×2 (08:03→20:54)
[2018-09-04] MEDS: ASPIRIN 81 MG TAB.CHEW PO SCH (08:03)
[2018-09-04] MEDS: guaiFENesin/PS-EPHED 600/60MG 1 TAB TAB.ER.12H PO SCH ×2 (08:04→20:56)
[2018-09-04] MEDS: LEUCOVORIN CALCIUM 5 MG TABLET PO SCH (08:04)
[2018-09-04] MEDS: ENOXAPARIN ** NOTE DOSE ** SYRINGE SQ SCH ×2 (08:05→20:57)
[2018-09-04] MEDS: GABAPENTIN 400 MG CAPSULE. PO SCH ×3 (08:11→20:56)
[2018-09-04] MEDS: ARIPiprazole 2 MG TABLET PO SCH (08:11)
[2018-09-04] MEDS: VENLAFAXINE XR 37.5 MG CAP.ER.24H. PO SCH (08:12)
[2018-09-04] MEDS: DICLOFENAC SODIUM 1% TOPICAL GEL 100GM TUBE. TP SCH ×5 (08:14→20:57)
[2018-09-04] MEDS ORDERED: WARFARIN 7.5 MG TABLET. PO ONE (16:00)
[2018-09-04] MEDS ORDERED: CHOLECALCIFEROL (VITAMIN D3) 50,000 UNIT CAPSULE PO SCH (16:00)
[2018-09-04 16:47] VITALS: BP 119/87
[2018-09-04] MEDS: ATORVASTATIN CALCIUM 20 MG TABLET PO SCH (20:54)
--- NOTE | 2018-09-04 21:39 | HP ---
ADMIT DATE: 09/02/2018 This is a late entry 09/03/2018, covers the elements not covered in my initial note. DICTATION ENDS HERE PATRICIA NOE MD DR: Khadijah JOB#: [id number] / [id number]
--- NOTE | 2018-09-04 22:39 | PDOC ---
Exam Note: Joe Note: Please also refer to the separate dictated note~for this date of service dictated separately.~Patient seen individually. Discussed the patient with Nursing staff reviewed the chart.~Reviewed interim history and current functioning. Reviewed vital signs,~Labs/ Radiology~and current medications noted below. Continue current treatment with the changes noted in the dictated addendum note Assessment: Vital Signs/I&O: Vital Signs Date Time Temp Pulse Resp B/P (MAP) Pulse Ox O2 Delivery O2 Flow Rate FiO2 09/04/18 20:54 88 119/87 09/04/18 16:47 97.6 18 95 09/03/18 15:44 Room Air 09/02/18 06:10 2.0 I & O 09/03/18 09/03/18 09/04/18 14:59 22:59 06:59 Intake Total 600 ml 360 ml 240 ml Balance 600 ml 360 ml 240 ml Labs: Laboratory Tests Test 09/04/18 07:18 09/04/18 08:00 Glucose (Fingerstick) 226 mg/dL (70-99) H Prothrombin Time 13.1 SEC (9.4-11.4) H Prothrombin Time INR 1.3 (0.9-1.1) H Current Medications: Meds: Current Medications Medications (Trade) Dose Ordered Sig/Leticia Route PRN Reason Start Time Stop Time Status Last Admin Dose Admin Vitamin D (Vitamin D3) 50,000 unit QSU PO 09/04/18 16:00 09/04/18 17:24 Aripiprazole (Abilify) 2 mg DAILY PO 09/04/18 09:00 09/04/18 08:11 Venlafaxine HCl (Effexor Xr) 150 mg DAILY PO 09/04/18 09:00 09/04/18 08:12 Warfarin Sodium (Coumadin) 7.5 mg 1X WARF ONCE PO 09/04/18 16:00 09/04/18 16:01 DC 09/04/18 17:24 I have reviewed the current psychotropics carefully including drug interactions. Risk benefit ratio favors no change other than as noted in my dictated progress note. Diagnosis: Problems: (1) Dehydration (2) Anxiety disorder (3) Major depressive disorder, recurrent episode (4) Impulse control disorder PATRICIA NOE MD Sep 04, 2018 22:39
[2018-09-05 06:04] VITALS: BP 105/61
[2018-09-05] MEDS: FUROSEMIDE 40 MG TABLET PO SCH (06:26)
--- NOTE | 2018-09-05 07:44 | EKG ---
[address] [address] Test Date: 2018-09-01 Test Time: 21:45:54 Pat Name: JUNG GUNDERSON Department: Room: Gender: F Yarn Man: TILA : 1950 Requested By: TOMMY PATIÑO Order Number: [id number] Reading MD: Measurements Intervals Dewart Rate: 84 P: IL: QRS: -47 QRSD: 92 T: 88 QT: 426 QTc: 507 Interpretive Statements IRREGULAR RHYTHM, NO P-WAVE FOUND VENTRICULAR PREMATURE COMPLEX(ES) ABNORMAL LEFT AXIS DEVIATION LEFT ANTERIOR FASCICULAR BLOCK QRS(T) CONTOUR ABNORMALITY CONSISTENT WITH SEPTAL INFARCT AGE UNDETERMINED ABNORMAL ECG RI6.01 No previous ECG available for comparison
[2018-09-05] MEDS: LACTOBACILLUS RHAMNOSUS GG 1 CAPSULE. PO SCH ×2 (08:54→20:12)
[2018-09-05] MEDS: ENOXAPARIN ** NOTE DOSE ** SYRINGE SQ SCH ×2 (08:54→22:46)
[2018-09-05] MEDS: guaiFENesin/PS-EPHED 600/60MG 1 TAB TAB.ER.12H PO SCH ×2 (08:54→20:16)
[2018-09-05] MEDS: CEPHALEXIN 250 MG CAPSULE PO SCH ×3 (08:56→20:14)
[2018-09-05] MEDS: ARIPiprazole 2 MG TABLET PO SCH (08:56)
[2018-09-05] MEDS: VENLAFAXINE XR 37.5 MG CAP.ER.24H. PO SCH (08:56)
[2018-09-05] MEDS: ASPIRIN 81 MG TAB.CHEW PO SCH (08:56)
[2018-09-05] MEDS: CHOLECALCIFEROL (VITAMIN D3) 1,000 UNIT TABLET PO SCH (08:56)
[2018-09-05] MEDS: metFORMIN 500 MG TABLET PO SCH ×2 (08:56→17:08)
[2018-09-05] MEDS: POTASSIUM CHLORIDE 20 MEQ TABLET.ER. PO SCH ×2 (08:57→20:13)
[2018-09-05] MEDS: METOPROLOL TART IMMED RELEASE 50 MG TABLET PO SCH ×2 (08:57→20:13)
[2018-09-05] MEDS: VITAMIN B COMPLEX CAPSULE. PO SCH (08:57)
[2018-09-05] MEDS: LEUCOVORIN CALCIUM 5 MG TABLET PO SCH (08:57)
[2018-09-05] MEDS: MAGNESIUM OXIDE 400 MG TABLET PO SCH ×2 (08:57→20:13)
[2018-09-05] MEDS: GABAPENTIN 400 MG CAPSULE. PO SCH ×3 (08:59→20:13)
[2018-09-05] MEDS: DICLOFENAC SODIUM 1% TOPICAL GEL 100GM TUBE. TP SCH ×4 (09:00→21:00)
[2018-09-05] MEDS ORDERED: WARFARIN 5 MG TABLET. PO ONE (16:00)
[2018-09-05 16:32] VITALS: BP 115/80
--- NOTE | 2018-09-05 17:26 | PN ---
DATE: 09/03/2018 PSYCHIATRIC PROGRESS NOTE This late entry 09/03/2018 covers elements not covered in my initial note. SUBJECTIVE: I met with the patient in the evening at length in her room. The patient slept reasonably previous night. She has been quite depressed, withdrawn, talked at great length individually about her marriage of 46 years, that her is an amputee and he wants to divorce her, that he lives at the snf in a room with another female resident there, and she has become quite overwhelmed and frustrated with the situation since she is unable to have sex with him because of her physical infirmity. REVIEW OF SYSTEMS: Ambulation impaired, in wheelchair. No CV, , pulmonary, eye system symptoms on review. MENTAL STATUS EXAM: Oriented, reasonably well. Speech is coherent, rapid at times. Abstraction fair, computation impaired, language function intact, attention span short. Mood and affect is depressed, anxious. Denies active suicidal ideations. She stated she is coming to terms with the situation and we addressed this at great length. I have reviewed information from Dr. Logan who covered for me over the past week or so. LABORATORY DATA: Reviewed. IMPRESSION: Major depressive disorder, recurrent; anxiety disorder, unspecified; mild cognitive impairment. PLAN: Stop the Celexa. Increase Effexor 100 mg a day to Effexor XR 150 mg a day, augment with Abilify 2 mg a day. Maintain Xanax p.r.n. plus 0.5 mg t.i.d. Make further changes as clinically indicated. The patient talked at length about tragedies in her life including losing 2 children. MAN Evelyn NOE MD DR: KORY/thee JOB#: [id number] / [id number]
[2018-09-05] MEDS: ATORVASTATIN CALCIUM 20 MG TABLET PO SCH (20:13)
--- NOTE | 2018-09-05 22:34 | PDOC ---
Exam Note: Joe Note: Please also refer to the separate dictated note~for this date of service dictated separately.~Patient seen individually. Discussed the patient with Nursing staff reviewed the chart.~Reviewed interim history and current functioning. Reviewed vital signs,~Labs/ Radiology~and current medications noted below. Continue current treatment with the changes noted in the dictated addendum note Assessment: Vital Signs/I&O: Vital Signs Date Time Temp Pulse Resp B/P (MAP) Pulse Ox O2 Delivery O2 Flow Rate FiO2 09/05/18 20:13 73 115/80 09/05/18 16:32 97.0 20 97 09/03/18 15:44 Room Air 09/02/18 06:10 2.0 I & O 09/04/18 09/04/18 09/05/18 15:00 23:00 07:00 Intake Total 960 ml 720 ml Balance 960 ml 720 ml Labs: Laboratory Tests Test 09/05/18 07:20 09/05/18 07:32 Glucose (Fingerstick) 199 mg/dL (70-99) H Prothrombin Time 15.5 SEC (9.4-11.4) H Prothrombin Time INR 1.5 (0.9-1.1) H Current Medications: Meds: Current Medications Medications (Trade) Dose Ordered Sig/Leticia Route PRN Reason Start Time Stop Time Status Last Admin Dose Admin Warfarin Sodium (Coumadin) 5 mg 1X WARF ONCE PO 09/05/18 16:00 09/05/18 16:01 DC 09/05/18 17:08 I have reviewed the current psychotropics carefully including drug interactions. Risk benefit ratio favors no change other than as noted in my dictated progress note. Diagnosis: Problems: (1) Anxiety disorder (2) Major depressive disorder, recurrent episode (3) Impulse control disorder PATRICIA NOE MD Sep 05, 2018 22:34
[2018-09-06] MEDS: FUROSEMIDE 40 MG TABLET PO SCH (05:54)
[2018-09-06 06:07] VITALS: BP 115/79
[2018-09-06 07:39] LABS: HEMATOCRIT 36.2 % (36.0-47.0); HEMOGLOBIN 11.9 g/dL (12.0-15.5)
[2018-09-06] MEDS: LEUCOVORIN CALCIUM 5 MG TABLET PO SCH (07:45)
[2018-09-06] MEDS: MAGNESIUM OXIDE 400 MG TABLET PO SCH ×2 (07:46→20:32)
[2018-09-06] MEDS: CEPHALEXIN 250 MG CAPSULE PO SCH ×3 (07:46→20:31)
[2018-09-06] MEDS: VENLAFAXINE XR 37.5 MG CAP.ER.24H. PO SCH (07:46)
[2018-09-06] MEDS: POTASSIUM CHLORIDE 20 MEQ TABLET.ER. PO SCH ×2 (07:47→20:31)
[2018-09-06] MEDS: LACTOBACILLUS RHAMNOSUS GG 1 CAPSULE. PO SCH ×2 (07:48→20:31)
[2018-09-06] MEDS: CHOLECALCIFEROL (VITAMIN D3) 1,000 UNIT TABLET PO SCH (07:48)
[2018-09-06] MEDS: metFORMIN 500 MG TABLET PO SCH ×2 (07:48→17:46)
[2018-09-06] MEDS: ARIPiprazole 2 MG TABLET PO SCH (07:49)
[2018-09-06] MEDS: ASPIRIN 81 MG TAB.CHEW PO SCH (07:49)
[2018-09-06] MEDS: METOPROLOL TART IMMED RELEASE 50 MG TABLET PO SCH ×2 (07:49→20:32)
[2018-09-06] MEDS: VITAMIN B COMPLEX CAPSULE. PO SCH (07:49)
[2018-09-06] MEDS: ENOXAPARIN ** NOTE DOSE ** SYRINGE SQ SCH ×2 (07:50→20:37)
[2018-09-06] MEDS: guaiFENesin/PS-EPHED 600/60MG 1 TAB TAB.ER.12H PO SCH ×2 (07:50→20:37)
[2018-09-06] MEDS: GABAPENTIN 400 MG CAPSULE. PO SCH ×3 (07:51→20:32)
[2018-09-06] MEDS: ACETAMINOPHEN/CODEINE 300/30MG TABLET PO PRN (08:59)
[2018-09-06] MEDS: DICLOFENAC SODIUM 1% TOPICAL GEL 100GM TUBE. TP SCH ×4 (09:00→20:32)
--- NOTE | 2018-09-06 15:51 | PN ---
DATE: 09/04/2018 PSYCHIATRIC PROGRESS NOTE This late entry 09/04/2018 covers elements not covered in my initial note. SUBJECTIVE: I met with the patient in the evening. The patient slept 6-1/4 hours previous night. The patient has been less tearful during the day. Denies active suicidal ideation. Still appears depressed. REVIEW OF SYSTEMS: Ambulation impaired, in wheelchair. No CV, , pulmonary, eye, ENT system symptoms on review. MENTAL STATUS EXAMINATION: Reasonably oriented. Speech is coherent, abstraction fair, computation impaired, language function intact, attention span short. Mood and affect still depressed, anxious, but improved. LABORATORY DATA: Reviewed. IMPRESSION: Unchanged from initial note; major depressive disorder, recurrent; anxiety disorder, unspecified. PLAN: Continue current psychotropics including Abilify which was added 2 mg a day, Effexor ER 150 mg a day, Xanax 0.5 t.i.d., may need to reduce this gradually. PATRICIA NOE MD DR: KORY/thee JOB#: [id number] / [id number]
[2018-09-06] MEDS ORDERED: WARFARIN 7.5 MG TABLET. PO ONE (16:00)
[2018-09-06 16:09] VITALS: BP 118/82
[2018-09-06] MEDS: ATORVASTATIN CALCIUM 20 MG TABLET PO SCH (20:32)
--- NOTE | 2018-09-06 22:35 | PDOC ---
Exam Note: Joe Note: Please also refer to the separate dictated note~for this date of service dictated separately.~Patient seen individually. Discussed the patient with Nursing staff reviewed the chart.~Reviewed interim history and current functioning. Reviewed vital signs,~Labs/ Radiology~and current medications noted below. Continue current treatment with the changes noted in the dictated addendum note Assessment: Vital Signs/I&O: Vital Signs Date Time Temp Pulse Resp B/P (MAP) Pulse Ox O2 Delivery O2 Flow Rate FiO2 09/06/18 20:32 89 118/82 09/06/18 16:09 97.6 19 97 09/06/18 11:30 Room Air 09/02/18 06:10 2.0 I & O 09/05/18 09/05/18 09/06/18 14:59 22:59 06:59 Intake Total 600 ml 240 ml 240 ml Balance 600 ml 240 ml 240 ml Labs: Laboratory Tests Test 09/06/18 06:58 09/06/18 07:40 Hemoglobin 11.9 g/dL (12.0-15.5) L Hematocrit 36.2 % (36.0-47.0) Prothrombin Time 16.2 SEC (9.4-11.4) H Prothrombin Time INR 1.6 (0.9-1.1) H Glucose (Fingerstick) 213 mg/dL (70-99) H Current Medications: Meds: Current Medications Medications (Trade) Dose Ordered Sig/Leticia Route PRN Reason Start Time Stop Time Status Last Admin Dose Admin Warfarin Sodium (Coumadin) 7.5 mg 1X WARF ONCE PO 09/06/18 16:00 09/06/18 16:02 DC 09/06/18 17:46 I have reviewed the current psychotropics carefully including drug interactions. Risk benefit ratio favors no change other than as noted in my dictated progress note. Diagnosis: Problems: (1) Anxiety disorder (2) Major depressive disorder, recurrent episode (3) Impulse control disorder PATRICIA NOE MD Sep 06, 2018 22:35
[2018-09-07 06:08] VITALS: BP 104/74
[2018-09-07] MEDS: ASPIRIN 81 MG TAB.CHEW PO SCH (07:31)
[2018-09-07] MEDS: metFORMIN 500 MG TABLET PO SCH ×2 (07:32→16:36)
[2018-09-07] MEDS: CEPHALEXIN 250 MG CAPSULE PO SCH ×3 (07:32→20:26)
[2018-09-07] MEDS: ARIPiprazole 2 MG TABLET PO SCH (07:32)
[2018-09-07] MEDS: VITAMIN B COMPLEX CAPSULE. PO SCH (07:32)
[2018-09-07] MEDS: VENLAFAXINE XR 37.5 MG CAP.ER.24H. PO SCH (07:33)
[2018-09-07] MEDS: LACTOBACILLUS RHAMNOSUS GG 1 CAPSULE. PO SCH ×2 (07:33→20:26)
[2018-09-07] MEDS: METOPROLOL TART IMMED RELEASE 50 MG TABLET PO SCH ×2 (07:34→20:30)
[2018-09-07] MEDS: POTASSIUM CHLORIDE 20 MEQ TABLET.ER. PO SCH ×2 (07:34→20:26)
[2018-09-07] MEDS: guaiFENesin/PS-EPHED 600/60MG 1 TAB TAB.ER.12H PO SCH ×2 (07:35→20:28)
[2018-09-07] MEDS: MAGNESIUM OXIDE 400 MG TABLET PO SCH ×2 (07:35→20:26)
[2018-09-07] MEDS: CHOLECALCIFEROL (VITAMIN D3) 1,000 UNIT TABLET PO SCH (07:35)
[2018-09-07] MEDS: ENOXAPARIN ** NOTE DOSE ** SYRINGE SQ SCH ×2 (07:36→20:30)
[2018-09-07] MEDS: LEUCOVORIN CALCIUM 5 MG TABLET PO SCH (07:36)
[2018-09-07] MEDS: FUROSEMIDE 20 MG TABLET PO SCH (07:39)
[2018-09-07] MEDS: GABAPENTIN 400 MG CAPSULE. PO SCH ×3 (07:39→20:26)
[2018-09-07] MEDS: DICLOFENAC SODIUM 1% TOPICAL GEL 100GM TUBE. TP SCH ×5 (07:40→20:39)
--- NOTE | 2018-09-07 09:51 | PN ---
DATE: 09/05/2018 PSYCHIATRIC PROGRESS NOTE This late entry, 09/05/2018, covers elements not covered in my initial note. SUBJECTIVE: I met with the patient in the evening of 09/05/2018. The patient slept 7-1/4 hours previous night. She has been quite verbal and interactive, talking about the new assisted she would be transitioning to with her and is looking forward to it. REVIEW OF SYSTEMS: Ambulation impaired, in wheelchair. No CV, , pulmonary, eye, ENT system symptoms on review. MENTAL STATUS EXAM: Oriented to herself and situation. Speech is coherent, abstraction fair, computation somewhat impaired, language function intact, attention span short. Mood and affect still depressed, anxious, but improved. No suicidal ideation. LABORATORY DATA: Reviewed. IMPRESSION: Unchanged from initial note. PLAN: No change from initial note. MAN Evelyn NOE MD DR: KORY/thee JOB#: [id number] / [id number]
[2018-09-07 14:21] LABS: ALBUMIN 2.3 g/dL (3.4-5.0); ALBUMIN/GLOBULIN RATIO 0.5 (1.0-1.7); CALCIUM 8.9 mg/dL (8.5-10.1); GFR 55.5; POTASSIUM 4.7 mmol/L (3.5-5.1); TOTAL BILIRUBIN 0.3 mg/dL (0.2-1.0); TOTAL PROTEIN 6.5 g/dL (6.4-8.2)
[2018-09-07] MEDS: ACETAMINOPHEN/CODEINE 300/30MG TABLET PO PRN ×2 (15:00→23:41)
[2018-09-07 15:32] VITALS: BP 111/75
[2018-09-07] MEDS ORDERED: WARFARIN 5 MG TABLET. PO ONE (16:00)
[2018-09-07] MEDS: ATORVASTATIN CALCIUM 20 MG TABLET PO SCH (20:26)
--- NOTE | 2018-09-07 23:00 | PDOC ---
Exam Note: Joe Note: Please also refer to the separate dictated note~for this date of service dictated separately.~Patient seen individually. Discussed the patient with Nursing staff reviewed the chart.~Reviewed interim history and current functioning. Reviewed vital signs,~Labs/ Radiology~and current medications noted below. Continue current treatment with the changes noted in the dictated addendum note Assessment: Vital Signs/I&O: Vital Signs Date Time Temp Pulse Resp B/P (MAP) Pulse Ox O2 Delivery O2 Flow Rate FiO2 09/07/18 20:30 83 145/90 09/07/18 16:00 18 09/07/18 15:32 97.0 99 09/07/18 06:08 Nasal Cannula 2.0 I & O 09/06/18 09/06/18 09/07/18 15:00 23:00 07:00 Intake Total 600 ml 240 ml Balance 600 ml 240 ml Labs: Laboratory Tests Test 09/07/18 06:34 09/07/18 07:33 Prothrombin Time 15.5 SEC (9.4-11.4) H Prothrombin Time INR 1.5 (0.9-1.1) H Sodium Level 138 mmol/L (136-145) Potassium Level 4.7 mmol/L (3.5-5.1) Chloride Level 100 mmol/L (98-107) Carbon Dioxide Level 30 mmol/L (21-32) Anion Gap 8 (6-14) Blood Urea Nitrogen 18 mg/dL (7-20) Creatinine 1.0 mg/dL (0.6-1.0) Estimated GFR (Cockcroft-Gault) 55.5 BUN/Creatinine Ratio 18 (6-20) Glucose Level 219 mg/dL (70-99) H Calcium Level 8.9 mg/dL (8.5-10.1) Total Bilirubin 0.3 mg/dL (0.2-1.0) Aspartate Amino Transferase (AST) 24 U/L (15-37) Alanine Aminotransferase (ALT) 21 U/L (14-59) Alkaline Phosphatase 154 U/L (46-116) H Total Protein 6.5 g/dL (6.4-8.2) Albumin 2.3 g/dL (3.4-5.0) L Albumin/Globulin Ratio 0.5 (1.0-1.7) L Glucose (Fingerstick) 216 mg/dL (70-99) H Current Medications: Meds: Current Medications Medications (Trade) Dose Ordered Sig/Leticia Route PRN Reason Start Time Stop Time Status Last Admin Dose Admin Furosemide (Lasix) 20 mg DAILY PO 09/07/18 09:00 09/07/18 07:39 Warfarin Sodium (Coumadin) 5 mg 1X WARF ONCE PO 09/07/18 16:00 09/07/18 16:01 DC 09/07/18 16:36 I have reviewed the current psychotropics carefully including drug interactions. Risk benefit ratio favors no change other than as noted in my dictated progress note. Diagnosis: Problems: (1) Major depressive disorder, recurrent episode (2) Anxiety disorder (3) Impulse control disorder PATRICIA NOE MD Sep 07, 2018 23:00
--- NOTE | 2018-09-08 00:17 | PN ---
DATE: 09/06/2018 PSYCHIATRIC PROGRESS NOTE This late entry 09/06/2018, covers elements not covered in my initial note. SUBJECTIVE: I met with the patient in the evening. The patient slept 6 hours previous night. She did well at night and during the day on 09/06/2018. She is pleased that arrangements are being made for her and her to move to a different assisted in to room together again and she is pleased her marriage is not going to be dissolved because of this problem with her . REVIEW OF SYSTEMS: Ambulation impaired, in wheelchair. No CV, , pulmonary, eye, ENT system symptoms on review. MENTAL STATUS EXAM: The patient is reasonably oriented. Speech is coherent, abstraction fair, computation somewhat impaired, language function intact, attention span short. Mood and affect showing improvement, less anxious, less depressed. Per social service staff, arrangements are being made to transfer her and her to [facility]. LABORATORY DATA: Reviewed. IMPRESSION: Unchanged from initial note. PLAN: No change from initial note. Continue Xanax, Effexor along with Abilify to augment the Effexor. MAN Evelyn NOE MD DR: KORY/thee JOB#: [id number] / [id number]
[2018-09-08 05:55] VITALS: BP 114/72
--- NOTE | 2018-09-08 06:42 | EKG ---
[address] [address] Test Date: 2018-09-08 Test Time: 06:33:17 Pat Name: JUNG GUNDERSON Department: Room: [address] [place] [address] Gender: F Equine Breeder: DEMETRIA : 1950 Requested By: RENETTA DEE Order Number: [id number] Reading MD: Measurements Intervals [place] Rate: 150 P: HI: QRS: -49 QRSD: 86 T: 94 QT: 310 QTc: 492 Interpretive Statements IRREGULAR RHYTHM, NO P-WAVE FOUND VENTRICULAR PREMATURE COMPLEX(ES) ABNORMAL LEFT AXIS DEVIATION LEFT ANTERIOR FASCICULAR BLOCK QRS(T) CONTOUR ABNORMALITY CONSISTENT WITH ANTEROSEPTAL INFARCT AGE UNDETERMINED T ABNORMALITY IN HIGH LATERAL LEADS ABNORMAL ECG RI6.02 Compared to ECG 10/14/2017 15:39:52 Left-axis deviation now present Left anterior fascicular block now present T-wave abnormality now present Myocardial infarct finding still present
[2018-09-08 06:57] LABS: BASO % 1 % (0-3); EOS % 0 % (0-3); HEMATOCRIT 35.9 % (36.0-47.0); HEMOGLOBIN 11.5 g/dL (12.0-15.5); LYMPH # 1.3 x10^3/uL (1.0-4.8); LYMPH % 17 % (24-48); MEAN CORPUSCULAR HEMOGLOBIN 29 pg (25-35); MEAN CORPUSCULAR HGB CONC 32 g/dL (31-37); MEAN CORPUSCULAR VOLUME 90 fL (79-100); MONO # 0.6 x10^3/uL (0.0-1.1); MONO % 8 % (0-9); NEUT # 5.9 x10^3uL (1.8-7.7); NEUT % 75 % (31-73); PLATELET COUNT 213 x10^3/uL (140-400); RED BLOOD COUNT 4.02 x10^6/uL (3.50-5.40); RED CELL DISTRIBUTION WIDTH 16.6 % (11.5-14.5); WHITE BLOOD COUNT 7.8 x10^3/uL (4.0-11.0)
[2018-09-08] MEDS: ASPIRIN 81 MG TAB.CHEW PO SCH (07:53)
[2018-09-08] MEDS: metFORMIN 500 MG TABLET PO SCH (07:53)
[2018-09-08] MEDS: ARIPiprazole 2 MG TABLET PO SCH (07:54)
[2018-09-08] MEDS: VITAMIN B COMPLEX CAPSULE. PO SCH (07:54)
[2018-09-08] MEDS: LACTOBACILLUS RHAMNOSUS GG 1 CAPSULE. PO SCH (07:54)
[2018-09-08] MEDS: VENLAFAXINE XR 37.5 MG CAP.ER.24H. PO SCH (07:55)
[2018-09-08] MEDS: POTASSIUM CHLORIDE 20 MEQ TABLET.ER. PO SCH (07:56)
[2018-09-08] MEDS: CEPHALEXIN 250 MG CAPSULE PO SCH (07:56)
[2018-09-08] MEDS: METOPROLOL TART IMMED RELEASE 50 MG TABLET PO SCH (07:57)
[2018-09-08] MEDS: FUROSEMIDE 20 MG TABLET PO SCH (07:57)
[2018-09-08] MEDS: MAGNESIUM OXIDE 400 MG TABLET PO SCH (07:58)
[2018-09-08] MEDS: CHOLECALCIFEROL (VITAMIN D3) 1,000 UNIT TABLET PO SCH (07:58)
[2018-09-08] MEDS: GABAPENTIN 400 MG CAPSULE. PO SCH (08:05)
[2018-09-08] MEDS: LEUCOVORIN CALCIUM 5 MG TABLET PO SCH (08:05)
[2018-09-08] MEDS: guaiFENesin/PS-EPHED 600/60MG 1 TAB TAB.ER.12H PO SCH (08:09)
[2018-09-08] MEDS: ENOXAPARIN ** NOTE DOSE ** SYRINGE SQ SCH (08:09)
[2018-09-08] MEDS ORDERED: CEPH-264 PO (08:20)
[2018-09-08] MEDS: DICLOFENAC SODIUM 1% TOPICAL GEL 100GM TUBE. TP SCH (08:24)
[2018-09-08] MEDS ORDERED: ENOX150D SQ (08:26)
[2018-09-08] MEDS ORDERED: ACET500T68 PO (08:35)
[2018-09-08 08:36] VITALS: BP 142/102
[2018-09-08] MEDS ORDERED: ARIP2TAB35 PO (08:38)
[2018-09-08] MEDS ORDERED: POTA10TA10 PO (08:44)
[2018-09-08] MEDS ORDERED: MAG30ORA PO (08:49)
[2018-09-08] MEDS ORDERED: MAGN2400 PO (08:50)
[2018-09-08] MEDS ORDERED: MAGN400T22 PO (08:58)
[2018-09-08] MEDS ORDERED: LACT1CAP19 PO (09:01)
[2018-09-08] MEDS: ACETAMINOPHEN/CODEINE 300/30MG TABLET PO PRN (09:17)
[2018-09-08] MEDS ORDERED: METH29OI TP (09:56)
--- NOTE | 2018-09-08 22:35 | PDOC ---
Exam Note: Joe Note: Please also refer to the separate dictated note~for this date of service dictated separately.~Patient seen individually. Discussed the patient with Nursing staff reviewed the chart.~Reviewed interim history and current functioning. Reviewed vital signs,~Labs/ Radiology~and current medications noted below. Continue current treatment with the changes noted in the dictated addendum note Assessment: Vital Signs/I&O: Vital Signs Date Time Temp Pulse Resp B/P (MAP) Pulse Ox O2 Delivery O2 Flow Rate FiO2 09/08/18 09:17 20 09/08/18 08:36 156 142/102 (115) 99 09/08/18 05:55 97.8 09/08/18 01:36 Room Air 09/07/18 23:41 2.0 I & O 09/07/18 09/07/18 09/08/18 15:00 23:00 07:00 Intake Total 960 ml 0 ml Balance 960 ml 0 ml Labs: Laboratory Tests Test 09/08/18 06:14 09/08/18 07:19 White Blood Count 7.8 x10^3/uL (4.0-11.0) Red Blood Count 4.02 x10^6/uL (3.50-5.40) Hemoglobin 11.5 g/dL (12.0-15.5) L Hematocrit 35.9 % (36.0-47.0) L Mean Corpuscular Volume 90 fL (79-100) Mean Corpuscular Hemoglobin 29 pg (25-35) Mean Corpuscular Hemoglobin Concent 32 g/dL (31-37) Red Cell Distribution Width 16.6 % (11.5-14.5) H Platelet Count 213 x10^3/uL (140-400) Neutrophils (%) (Auto) 75 % (31-73) H Lymphocytes (%) (Auto) 17 % (24-48) L Monocytes (%) (Auto) 8 % (0-9) Eosinophils (%) (Auto) 0 % (0-3) Basophils (%) (Auto) 1 % (0-3) Neutrophils # (Auto) 5.9 x10^3uL (1.8-7.7) Lymphocytes # (Auto) 1.3 x10^3/uL (1.0-4.8) Monocytes # (Auto) 0.6 x10^3/uL (0.0-1.1) Eosinophils # (Auto) 0.0 x10^3/uL (0.0-0.7) Basophils # (Auto) 0.0 x10^3/uL (0.0-0.2) Prothrombin Time 17.4 SEC (9.4-11.4) H Prothrombin Time INR 1.7 (0.9-1.1) H Glucose (Fingerstick) 224 mg/dL (70-99) H Current Medications: I have reviewed the current psychotropics carefully including drug interactions. Risk benefit ratio favors no change other than as noted in my dictated progress note. Diagnosis: Problems: (1) Anxiety disorder (2) Major depressive disorder, recurrent episode (3) Impulse control disorder PATRICIA NOE MD Sep 08, 2018 22:35
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
--- NOTE | 2018-09-09 12:52 | PN ---
DATE: 09/07/2018 PSYCHIATRIC PROGRESS NOTE This late entry of 09/07/2018 covers elements not covered in my initial note. SUBJECTIVE: I met with the patient in the evening. Overall, the patient is doing somewhat better. She slept 7 hours previous night. [facility] is going to be screaming her for transition there together with her and she is very pleased with this. I addressed this with her at some length individually. REVIEW OF SYSTEMS: Ambulation impaired, in wheelchair. No CV, , pulmonary, eye, ENT system symptoms on review. MENTAL STATUS EXAM: The patient is reasonably oriented. Speech coherent, abstraction fair, computation impaired, language function intact, attention span short. Mood and affect less depressed and anxious. No suicidal ideation. LABORATORY DATA: Reviewed. IMPRESSION: Unchanged from initial note. PLAN: No change from initial note. MAN Evelyn NOE MD DR: KORY/thee JOB#: [id number] / [id number]
== END 2018-09-08 09:21 | disposition short-term general hospital (02) | DRG 885 ==
LOC: ER 20:21 → GEROPSY 09-02 01:42
PROVIDERS: ADMIT Psychiatry & Neurology Psychiatry; ATTEND Psychiatry & Neurology Psychiatry
DX: F33.9 Major depressive disorder, recurrent, unspecified (principal); Z68.43 Body mass index [BMI] 50.0-59.9, adult; G93.40 Encephalopathy, unspecified; I50.30 Unspecified diastolic (congestive) heart failure; J44.1 Chronic obstructive pulmonary disease with (acute) exacerbation; K92.2 Gastrointestinal hemorrhage, unspecified; N39.0 Urinary tract infection, site not specified; E46 Unspecified protein-calorie malnutrition; E11.9 Type 2 diabetes mellitus without complications; E66.01 Morbid (severe) obesity due to excess calories; E78.5 Hyperlipidemia, unspecified; E83.42 Hypomagnesemia; E86.0 Dehydration; E87.6 Hypokalemia; F34.1 Dysthymic disorder; F41.1 Generalized anxiety disorder; F63.9 Impulse disorder, unspecified; G31.84 Mild cognitive impairment of uncertain or unknown etiology; G47.33 Obstructive sleep apnea (adult) (pediatric); G62.9 Polyneuropathy, unspecified; I11.0 Hypertensive heart disease with heart failure; I25.10 Atherosclerotic heart disease of native coronary artery without angina pectoris; I48.2 Chronic atrial fibrillation; M19.90 Unspecified osteoarthritis, unspecified site; Z79.01 Long term (current) use of anticoagulants; Z82.49 Family history of ischemic heart disease and other diseases of the circulatory system; Z85.048 Personal history of other malignant neoplasm of rectum, rectosigmoid junction, and anus; Z87.891 Personal history of nicotine dependence; Z90.49 Acquired absence of other specified parts of digestive tract; Z93.3 Colostomy status; Z95.1 Presence of aortocoronary bypass graft; Z88.8 Allergy status to other drugs, medicaments and biological substances; Z91.040 Latex allergy status
CPT/HCPCS: 36415; 71045; 80048; 80053; 80076; 80307; 81001; 82306; 82550; 82947; 83036; 83540; 83550; 83690; 83735; 83880; 84443; 84484; 85014; 85018; 85025; 85379; 85610; 85651; 85730; 86592; 87086; 93005; 96361; 96365; 96368; 96372; 96375; J0696; J1650; J1940; J3475; J7120; 97110; 97116; 97530; 97535; 99285-25

== ENCOUNTER 2018-09-08 09:29 | Inpatient (IN) | payer MEDICARE, OTHER ==
[~2018-09-08] VITALS: Ht 165.1 cm; Wt 146.7 kg
[2018-09-08] VITALS (10 sets, daily range): BP systolic 119–148; BP diastolic 68–90
[~2018-09-08 09:29] MED LIST changes: +ACET500T68 PO; +ALPR1TAB6 PO; +ARIP2TAB35 PO; +CEPH-264 PO; +CITA20TA9 PO; +ENOX150D SQ; +FURO20TA3 PO; +LACT1CAP19 PO; +MAG30ORA PO; +MAGN2400 PO; +POTA10TA10 PO; +WARF-31 PO
[2018-09-08] MEDS ORDERED: METH29OI TP (09:56)
[2018-09-08] MEDS ORDERED: dilTIAZem 25 MG/5 ML VIAL IVP ONE (10:00)
[2018-09-08] MEDS: dilTIAZem VIAL 125 MG in IV DEXTROSE 5% 100 ML IV PRN ×2 (10:09→20:50)
[2018-09-08] MEDS ORDERED: FUROSEMIDE 20 MG TABLET PO PRN (11:30)
[2018-09-08] MEDS ORDERED: ACETAMINOPHEN 325 MG TABLET PO PRN (11:30)
[2018-09-08] MEDS ORDERED: IPRATRPIUM/ALBUTEROL 0.5/2.5MG 3 ML NEBU. NEB PRN (11:30)
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
--- NOTE | 2018-09-08 14:24 | RAD ---
Exam performed: X-ray right knee and right femur. HISTORY: Right knee pain. DATE OF SERVICE: 09/08/2018. COMPARISON: X-ray bilateral knees from November 25, 2017 FINDINGS: AP, lateral and oblique views of the right knee are obtained. There are degenerative changes about the right medial greater than lateral tibiofemoral as well as patellofemoral joint with osteophytic spurring. There is no acute fracture or dislocation. No joint effusion. AP and lateral views of the right femur are obtained. Normal alignment of the right hip joint is preserved. There are degenerative changes about the right knee. No fracture or dislocation is seen. No soft tissue swelling or foreign body identified. 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 No acute abnormality seen. Electronically signed by: Awilda Dee MD (09/08/2018 2:21 PM) [facility]
[2018-09-08] MEDS: VENLAFAXINE 50 MG TABLET. PO SCH ×2 (14:36→20:51)
[2018-09-08] MEDS: GABAPENTIN 400 MG CAPSULE. PO SCH ×2 (14:36→20:51)
[2018-09-08] MEDS ORDERED: WARFARIN 5 MG TABLET. PO ONE (16:00)
[2018-09-08] MEDS: metFORMIN 500 MG TABLET PO SCH (16:42)
[2018-09-08] MEDS: MAGNESIUM OXIDE 400 MG TABLET PO SCH (20:51)
[2018-09-08] MEDS: CEPHALEXIN 250 MG CAPSULE PO SCH (20:51)
[2018-09-08] MEDS: POTASSIUM CHLORIDE 20 MEQ TABLET.ER. PO SCH (20:51)
[2018-09-08] MEDS: LACTOBACILLUS RHAMNOSUS GG 1 CAPSULE. PO SCH (20:51)
[2018-09-08] MEDS: METOPROLOL TART IMMED RELEASE 50 MG TABLET PO SCH (20:54)
[2018-09-08] MEDS: ENOXAPARIN ** NOTE DOSE ** SYRINGE SQ SCH (20:54)
[2018-09-08] MEDS: ATORVASTATIN CALCIUM 20 MG TABLET PO SCH (20:54)
[2018-09-08] MEDS ORDERED: LACTOBACILLUS RHAMNOSUS GG 1 CAPSULE. PO SCH (21:00)
[2018-09-08] MEDS ORDERED: guaiFENesin/PS-EPHED 600/60MG 1 TAB TAB.ER.12H PO SCH (21:00)
[2018-09-09] VITALS (22 sets, daily range): BP systolic 68–161; BP diastolic 42–96
[2018-09-09 05:50] LABS: HEMATOCRIT 33.9 % (36.0-47.0); HEMOGLOBIN 10.8 g/dL (12.0-15.5); RED BLOOD COUNT 3.73 x10^6/uL (3.50-5.40); RED CELL DISTRIBUTION WIDTH 16.5 % (11.5-14.5)
[2018-09-09 06:04] LABS: ALBUMIN 2.1 g/dL (3.4-5.0); ALBUMIN/GLOBULIN RATIO 0.4 (1.0-1.7); CALCIUM 8.8 mg/dL (8.5-10.1); CREATININE 0.9 mg/dL (0.6-1.0); GFR 62.6; POTASSIUM 4.6 mmol/L (3.5-5.1); TOTAL PROTEIN 6.9 g/dL (6.4-8.2)
[2018-09-09] MEDS ORDERED: MAGNESIUM SULFATE 2GM 50 ML IV ONE (06:45)
[2018-09-09] MEDS ORDERED: DEXTROSE 50% 25 GM / 50ML DISP.SYRIN. IV PRN (08:30)
[2018-09-09] MEDS: metFORMIN 500 MG TABLET PO SCH ×2 (08:30→16:55)
[2018-09-09] MEDS: CHOLECALCIFEROL (VITAMIN D3) 1,000 UNIT TABLET PO SCH (08:30)
[2018-09-09] MEDS: CEPHALEXIN 250 MG CAPSULE PO SCH ×3 (08:31→19:44)
[2018-09-09] MEDS: LACTOBACILLUS RHAMNOSUS GG 1 CAPSULE. PO SCH ×2 (08:31→19:44)
[2018-09-09] MEDS: MAGNESIUM OXIDE 400 MG TABLET PO SCH ×2 (08:31→19:44)
[2018-09-09] MEDS: POTASSIUM CHLORIDE 20 MEQ TABLET.ER. PO SCH ×2 (08:32→21:00)
[2018-09-09] MEDS: GABAPENTIN 400 MG CAPSULE. PO SCH ×3 (08:32→19:44)
[2018-09-09] MEDS: ENOXAPARIN ** NOTE DOSE ** SYRINGE SQ SCH ×2 (08:35→19:46)
[2018-09-09] MEDS: VENLAFAXINE 50 MG TABLET. PO SCH ×3 (08:35→19:44)
[2018-09-09] MEDS: ARIPiprazole 2 MG TABLET PO SCH (08:36)
[2018-09-09] MEDS: LEUCOVORIN CALCIUM 5 MG TABLET PO SCH (08:36)
[2018-09-09] MEDS: HYDROcodone/APAP 10/325 1 TAB TABLET PO PRN (08:37)
[2018-09-09] MEDS ORDERED: INSULIN LISPRO 300 UNITS/3 ML INSULN.PEN. SQ ONE (09:00)
[2018-09-09] MEDS: METOPROLOL TART IMMED RELEASE 50 MG TABLET PO SCH ×2 (09:00→19:46)
[2018-09-09] MEDS ORDERED: DIGOXIN IV 500 MCG/2 ML AMPUL. IV ONE ×2 (09:00→17:00)
[2018-09-09] MEDS: dilTIAZem VIAL 125 MG in IV DEXTROSE 5% 100 ML IV PRN (10:54)
[2018-09-09] MEDS: INSULIN LISPRO 300 UNITS/3 ML INSULN.PEN. SQ SCH ×2 (12:44→16:58)
--- NOTE | 2018-09-09 13:09 | PDOC2 ---
CONSULT Date of Admission DATE: 09/09/18 TIME: 13:09 Reason for Consult: Atrial fibrillation Referring Physician: Dr. Rivas Chief Complaint Palpitations Source: Chart review, Patient History of Present Illness 68-year-old female who was recently admitted to [facility] behavioral unit with severe depression was found to have atrial fibrillation with rapid ventricular response yesterday and transferred to ICU for further management. Patient has a history of paroxysmal atrial fibrillation and was previously treated with sotalol that was discontinued for uncertain reasons. She is on warfarin for stroke prophylaxis and usually sees [facility] cardiology. She denied any chest pain, orthopnea/PND or syncope. Past Medical History Coronary artery disease s/p single-vessel CABG in 2008 with cardiac catheterization in 2011 showing patent TAPIA to LAD Paroxysmal atrial fibrillation Hypertension Hyperlipidemia Diabetes mellitus type 2 Obstructive sleep apnea Asthma Past Surgical History Coronary artery bypass surgery Colon cancer s/p colectomy and colostomy with subsequent reversal Family History: Coronary Artery Disease Social History Patient denied any smoking, alcohol or drug use Current Medications Current Medications Diltiazem HCl 125 mg/Dextrose 125 ml @ 5 mls/hr CONT PRN IV SEE I/O RECORD Last administered on 09/09/18at 10:54; Start 09/08/18 at 10:00 Diltiazem HCl (Cardizem Iv Push) 30 mg 1X ONCE IVP Last administered on 09/08/18at 11:48; Start 09/08/18 at 10:00; Stop 09/08/18 at 10:02; Status DC Vitamin D (Vitamin D3) 2,000 unit DAILY PO Last administered on 09/09/18at 08:30; Start 09/09/18 at 09:00 Furosemide (Lasix) 20 mg PRN DAILY@1130 PRN PO heart failure; Start 09/08/18 at 11:30 Gabapentin (Neurontin) 400 mg TID PO Last administered on 09/09/18at 08:32; Start 09/08/18 at 14:00 Guaifenesin (Mucinex D Er 600-60 Mg) 1 tab Q12HR PO ; Start 09/08/18 at 21:00; Stop 09/08/18 at 21:00; Status DC Albuterol/ Ipratropium (Duoneb) 3 ml PRN QID PRN NEB SHORTNESS OF AIR/WHEEZING; Start 09/08/18 at 11:30 Warfarin Sodium (Coumadin Per Pharmacy) 1 each PRN DAILY PRN MC SEE COMMENTS Last administered on 09/09/18 12:42; Start 09/08/18 at 11:45 Acetaminophen (Tylenol) 650 mg PRN Q6HRS PRN PO PAIN / TEMP; Start 09/08/18 at 11:30 Aripiprazole (Abilify) 2 mg DAILY PO Last administered on 09/09/18 08:36; Start 09/09/18 at 09:00 Diltiazem HCl (Cardizem 24hr Cd) 360 mg DAILY PO ; Start 09/09/18 at 09:00 Enoxaparin Sodium (Lovenox 150mg Syringe) 150 mg Q12HR SQ Last administered on 09/09/18 08:35; Start 09/08/18 at 21:00 Vitamin D (Vitamin D3) 50,000 unit QSU PO ; Start 09/18/18 at 16:00 Leucovorin Calcium (Wellcovorin) 5 mg DAILY PO Last administered on 09/09/18 08:36; Start 09/09/18 at 09:00 Magnesium Oxide (Magnesium Oxide) 400 mg BID PO Last administered on 09/09/18 08:31; Start 09/08/18 at 21:00 Metformin HCl (Glucophage) 1,000 mg BIDWMEALS PO Last administered on 09/09/18 08:30; Start 09/08/18 at 17:00 Potassium Chloride (Klor-Con) 20 meq BID PO Last administered on 09/09/18 08:32; Start 09/08/18 at 21:00 Atorvastatin Calcium (Lipitor) 20 mg QHS PO Last administered on 09/08/18 20:54; Start 09/08/18 at 21:00 Venlafaxine HCl (Effexor) 50 mg TID PO Last administered on 09/09/18 08:35; Start 09/08/18 at 14:00 Warfarin Sodium (Coumadin) 5 mg 1X WARF ONCE PO Last administered on 09/08/18 16:42; Start 09/08/18 at 16:00; Stop 09/08/18 at 16:01; Status DC Lactobacillus Rhamnosus (Culturelle) 1 cap BID PO Last administered on 09/09/18 08:31; Start 09/08/18 at 21:00 Cephalexin HCl (Keflex) 500 mg TID PO Last administered on 09/09/18 08:31; Start 09/08/18 at 21:00; Stop 09/12/18 at 20:59 Fentanyl Citrate (Fentanyl 2ml Vial) 50 mcg PRN Q2HR PRN IV PAIN Last administered on 09/08/18 15:21; Start 09/08/18 at 11:30; Stop 09/08/18 at 16:32; Status DC Lactobacillus Rhamnosus (Culturelle) 1 cap BID PO ; Start 09/08/18 at 21:00; Stop 09/08/18 at 21:00; Status DC Fentanyl Citrate (Fentanyl 2ml Vial) 100 mcg PRN Q2HR PRN IV PAIN Last administered on 09/09/18 09:29; Start 09/08/18 at 16:45 Acetaminophen/ Hydrocodone Bitart (Lortab 10/325) 1 tab PRN Q6HRS PRN PO PAIN Last administered on 09/09/18 08:37; Start 09/08/18 at 16:30 Metoprolol Tartrate (Lopressor) 50 mg BID PO Last administered on 09/08/18 20:54; Start 09/08/18 at 21:00 Guaifenesin (Mucinex Er) 600 mg BID PO Last administered on 09/09/18 08:31; Start 09/08/18 at 21:00 Magnesium Sulfate 50 ml @ 25 mls/hr 1X ONCE IV Last administered on 09/09/18 06:33; Start 09/09/18 at 06:45; Stop 09/09/18 at 08:44; Status DC Insulin Human Lispro (HumaLOG) 0-7 UNITS TIDWMEALS SQ Last administered on 09/09/18at 12:44; Start 09/09/18 at 12:00 Dextrose (Dextrose 50%-Water Syringe) 12.5 gm PRN Q15MIN PRN IV SEE COMMENTS; Start 09/09/18 at 08:30 Digoxin (Lanoxin) 500 mcg 1X ONCE IV Last administered on 09/09/18 09:22; Start 09/09/18 at 09:00; Stop 09/09/18 at 09:01; Status DC Insulin Human Lispro (HumaLOG) 4 units 1X ONCE SQ Last administered on 09/09/18 09:20; Start 09/09/18 at 09:00; Stop 09/09/18 at 09:01; Status DC Baclofen (Lioresal) 10 mg Q6H PRN PO MUSCLE SPASMS; Start 09/09/18 at 12:15 Diclofenac Sodium (Voltaren) 1 aaron QID TP ; Start 09/09/18 at 13:00 Warfarin Sodium (Coumadin) 7.5 mg 1X WARF ONCE PO ; Start 09/09/18 at 16:00; Stop 09/09/18 at 16:01 Active Scripts Active Warfarin Sodium 2.5 Mg Tablet 2.5 Mg PO DAILY 30 Days Reported Analgesic [place] (Methyl Salicylate/Menthol) 28 Gm Oint...g. 1 Gm TP PRN QID PRN Culturelle (Lactobacillus Rhamnosus Gg) 1 Each Cap.sprink 1 Each PO BID Mag-Oxide (Magnesium Oxide) 400 Mg Tablet 400 Mg PO BID Milk Of Magnesia (Magnesium Hydroxide) 2,400 Mg/10 Ml Oral.susp 2,400 Mg PO PRN QHS PRN Mag-Al Plus Suspension (Mag Hydrox/Al Hydrox/Simeth) 30 Ml Oral.susp 15 Ml PO PRN Potassium Chloride 10 Meq Tablet.er 20 Meq PO BID Abilify (Aripiprazole) 2 Mg Tablet 2 Mg PO DAILY Acetaminophen 500 Mg Tablet 650 Mg PO Q6HRS PRN Lovenox (Enoxaparin Sodium) 150 Mg/1 Ml Disp.syrin 150 Mg SQ Q12HR Keflex (Cephalexin) 500 Mg Capsule 500 Mg PO TID Warfarin Sodium 5 Mg Tablet 5 Mg PO DAILYWSUP Furosemide 20 Mg Tablet 20 Mg PO DAILYBFRLUN PRN Vitamin D3 (Cholecalciferol (Vitamin D3)) 1,000 Unit Tablet 2 Tab PO DAILY Vitamin D2 (Ergocalciferol (Vitamin D2)) 50,000 Unit Capsule 1 Cap PO WEEKLY ON WEDNESDAY Pravastatin Sodium 80 Mg Tablet 1 Tab PO QHS Ondansetron Odt (Ondansetron) 4 Mg Tab.rapdis 2 Tab PO Q12HR PRN Mucinex D Er 600-60 Mg Tablet (Guaifenesin/Pseudoephedrne Hcl) 1 Each Tab.er.12h 1 Each PO Q12HR Metoprolol Tartrate 50 Mg Tablet 1 Tab PO BID Leucovorin Calcium 5 Mg Tablet 5 Mg PO DAILY Gabapentin (Gabapentin) 400 Mg Capsule 400 Mg PO TID Effexor Xr (Venlafaxine Hcl) 150 Mg Cap.er.24h 1 Cap PO DAILY Duoneb 0.5-3(2.5) Mg/3 Ml (Albuterol/Ipratropium) 3 Ml Ampul.neb 3 Ml NEB QID PRN Diltiazem 24HR Cd (Diltiazem Hcl) 180 Mg Cap.er.24h 2 Cap PO DAILY B Complex (Vitamin B Complex) 1 Each Tablet 1 Each PO DAILY Aspir-Low (Aspirin) 81 Mg Tablet.dr 1 Tab PO DAILY Tylenol With Codeine #3 Tablet (Acetaminophen With Codeine) 1 Each Tablet 1 Tab PO Q6HRS PRN Metformin Hcl 1,000 Mg Tablet 1,000 Mg PO BIDWMEALS Allergies: Coded Allergies: adenosine (Verified Allergy, Severe, Anaphylaxis, 08/04/18) "I swell up and I can't breathe." adhesive (Verified Allergy, Intermediate, ITCH, REDNESS WITH PLASTIC TAPE, 08/04/18) PLASTIC TAPE latex (Verified Allergy, Intermediate, Itching, 08/04/18) and "red blotches" I S O L A T I O N *CONTACT* (Verified Allergy, Unknown, 08/04/18) +MRSA abd wound 12/21/15 General: YES: Fatigue Eyes: No: Loss of vision HEENT: No: Epistaxis Respiratory: No: Hemoptysis Cardiovascular: yes: Palpitations; No: Chest Pain Gastrointestinal: No: Vomiting, Diarrhea Genitourinary: No: Henaturia Neurological: No: Seizures Skin: No: Rash General: Alert, Oriented X3 HEENT: Atraumatic, PERRLA Lungs: Clear to auscultation Heart: Other (heart rate is irregular) Abdomen: Soft, No tenderness Extremities: Other (1+ pitting edema) Psych/Mental Status: Mood NL VITALS Vital Signs Date Time Temp Pulse Resp B/P (MAP) Pulse Ox O2 Delivery O2 Flow Rate FiO2 09/09/18 12:26 100 115/56 (75) 09/09/18 11:20 98 Nasal Cannula 3.0 09/09/18 11:09 18 09/09/18 08:48 97.9 Labs Laboratory Tests Test 09/08/18 10:10 09/08/18 17:26 09/08/18 21:10 09/09/18 05:10 Nasal Screen MRSA (PCR) Negative (Negative) Glucose (Fingerstick) 226 mg/dL (70-99) 210 mg/dL (70-99) White Blood Count 11.0 x10^3/uL (4.0-11.0) Red Blood Count 3.73 x10^6/uL (3.50-5.40) Hemoglobin 10.8 g/dL (12.0-15.5) Hematocrit 33.9 % (36.0-47.0) Mean Corpuscular Volume 91 fL (79-100) Mean Corpuscular Hemoglobin 29 pg (25-35) Mean Corpuscular Hemoglobin Concent 32 g/dL (31-37) Red Cell Distribution Width 16.5 % (11.5-14.5) Platelet Count 242 x10^3/uL (140-400) Prothrombin Time 18.3 SEC (9.4-11.4) Prothromb Time International Ratio 1.8 (0.9-1.1) Sodium Level 132 mmol/L (136-145) Potassium Level 4.6 mmol/L (3.5-5.1) Chloride Level 98 mmol/L (98-107) Carbon Dioxide Level 29 mmol/L (21-32) Anion Gap 5 (6-14) Blood Urea Nitrogen 15 mg/dL (7-20) Creatinine 0.9 mg/dL (0.6-1.0) Estimated GFR (Cockcroft-Gault) 62.6 BUN/Creatinine Ratio 17 (6-20) Glucose Level 225 mg/dL (70-99) Calcium Level 8.8 mg/dL (8.5-10.1) Magnesium Level 1.7 mg/dL (1.8-2.4) Total Bilirubin 1.0 mg/dL (0.2-1.0) Aspartate Amino Transf (AST/SGOT) 145 U/L (15-37) Alanine Aminotransferase (ALT/SGPT) 149 U/L (14-59) Alkaline Phosphatase 266 U/L (46-116) Total Protein 6.9 g/dL (6.4-8.2) Albumin 2.1 g/dL (3.4-5.0) Albumin/Globulin Ratio 0.4 (1.0-1.7) Test 09/09/18 08:07 09/09/18 12:39 Glucose (Fingerstick) 230 mg/dL (70-99) 218 mg/dL (70-99) Assessment/Plan 1. Atrial fibrillation with rapid ventricle response. Patient has known history of paroxysmal atrial fibrillation. Last 2-D echo in 2016 showed normal LV systolic function. Repeat 2-D echo could be considered as an outpatient. Heart rate better controlled. Change Cardizem to by mouth and start amiodarone for antiarrhythmic therapy. Continue warfarin for stroke prophylaxis and adjust dose per pharmacy for therapeutic INR. 2. CAD s/p single-vessel CABG with cardiac catheterization in 2011 showing patent TAPIA to LAD. She is clinically stable and chest pain-free. Continue current secondary prevention measures. 3. Hypertension: Controlled 4. Hyperlipidemia: Continue statin therapy 5. Diabetes mellitus type 2: Treat per IM 6. Major depressive disorder: Treat per psychiatric team Thank you for your consultation JIM CHRISTIANSON MD Sep 09, 2018 13:09
[2018-09-09] MEDS: BACLOFEN 10 MG TABLET PO PRN ×3 (13:17→21:58)
[2018-09-09] MEDS: DICLOFENAC SODIUM 1% TOPICAL GEL 100GM TUBE. TP SCH ×3 (13:22→19:46)
[2018-09-09] MEDS: IV NORMAL SALINE 1,000ML 1,000 ML IV SCH ×2 (13:24→23:15)
[2018-09-09] MEDS ORDERED: AMIODARONE 900 MG in IV DEXTROSE 5% 500 ML IV PRN (13:30)
[2018-09-09] MEDS ORDERED: WARFARIN 7.5 MG TABLET. PO ONE (16:00)
--- NOTE | 2018-09-09 19:00 | PN ---
DATE: SUBJECTIVE: The patient is resting slightly propped up in bed, in no apparent distress. She denied any chest pain or shortness of breath. She continued to complain of spasm in her right lower leg, mostly in the distal inner right thigh. We did x-ray of her femur, which basically showed normal alignment of the right hip joint preserved. There are degenerative changes about the right knee, no fracture or dislocation is seen. No soft tissue swelling or foreign body identified. Her right knee showed degenerative changes about the right medial greater than lateral tibiofemoral as well as patellofemoral joint with osteophytic spurring. There is no acute fracture or dislocation. No joint effusion. Her heart rate continues to be elevated, although less than yesterday. However, her blood pressure is borderline on Cardizem drip. I did give her 500 mcg of digoxin, but her heart rate still suboptimally controlled. When I saw her this afternoon, she is resting slightly propped up in bed, in no apparent respiratory distress. No pallor, jaundice, cyanosis, or thyromegaly. No jugular venous distension. No limb edema. PHYSICAL EXAMINATION: VITAL SIGNS: Her heart rate was 97. Her blood pressure dropped down to 72/64. However, her Cardizem drip was cut down from 15 to 10 and her blood pressure is up slightly to 115 mmHg. HEAD, EYES, EARS, NOSE AND THROAT: Showed normocephalic, atraumatic. NECK: Supple. HEART: Showed normal first and second heart sounds. No gallop, rub or murmur. CHEST: Clear to auscultation. No crepitation or rhonchi. ABDOMEN: Distended, soft, nontender. No guarding or rigidity. No organomegaly. All hernial orifice intact. Bowel sounds normal. NEUROLOGIC: She is awake, alert, responding appropriately. All cranial nerves intact. She moves extremities without difficulty, although she is mostly bedbound, chair bound. Her intake over the last 24 hours was 1925, no output was recorded. LABORATORY DATA: Her lab work this morning showed a white cell count of 11,000, hemoglobin 11, hematocrit 33, MCV 91, and platelet count 142,000. Her serum sodium was 132, potassium 4.6, chloride 98, bicarbonate 29, anion gap of 5, BUN 15, creatinine 0.9, estimated GFR was 63 mL per minute. Her glucose was 125, calcium was 8.8. Total bilirubin 1. AST, ALT, alkaline phosphatase are all elevated. Her total protein was 6.9, albumin was 2.1. Her prothrombin time was 18.3, INR 1.8. Nasal screen for MRSA PCR was negative. ASSESSMENT: Atrial fibrillation with rapid ventricular response, suboptimally controlled. Other issues include hypertension, hyperlipidemia, type 2 diabetes, morbid obesity, obstructive sleep apnea, severe protein-calorie malnutrition and bronchial asthma. She is also known to have coronary artery disease, status post single coronary artery bypass surgery with left internal mammary artery to the left anterior descending. PLAN: To await Cardiology evaluation as Cardizem is only causing hypotension without really controlling the heart rate. She was given 500 mcg of digoxin without much improvement. Her last echocardiogram showed an ejection fraction of 50-55%. RENETTA DEE MD DR: LU/thee JOB#: [id number] / [id number]
[2018-09-09] MEDS: ATORVASTATIN CALCIUM 20 MG TABLET PO SCH (19:44)
[2018-09-09] MEDS: LORazepam 1 MG TABLET PO PRN (21:58)
[2018-09-10] VITALS (21 sets, daily range): BP systolic 103–158; BP diastolic 48–95
[2018-09-10 06:55] LABS: ALBUMIN 1.9 g/dL (3.4-5.0); ALBUMIN/GLOBULIN RATIO 0.5 (1.0-1.7); CALCIUM 8.4 mg/dL (8.5-10.1); CREATININE 0.8 mg/dL (0.6-1.0); GFR 71.8; POTASSIUM 5.2 mmol/L (3.5-5.1); TOTAL BILIRUBIN 0.9 mg/dL (0.2-1.0); TOTAL PROTEIN 5.9 g/dL (6.4-8.2)
[2018-09-10] MEDS: POTASSIUM CHLORIDE 20 MEQ TABLET.ER. PO SCH (07:02)
[2018-09-10] MEDS: metFORMIN 500 MG TABLET PO SCH ×2 (08:25→17:00)
[2018-09-10] MEDS: INSULIN LISPRO 300 UNITS/3 ML INSULN.PEN. SQ SCH ×3 (08:32→17:01)
[2018-09-10] MEDS: HYDROcodone/APAP 10/325 1 TAB TABLET PO PRN (08:44)
[2018-09-10] MEDS: CHOLECALCIFEROL (VITAMIN D3) 1,000 UNIT TABLET PO SCH (09:09)
[2018-09-10] MEDS: BACLOFEN 10 MG TABLET PO PRN ×2 (09:10→23:07)
[2018-09-10] MEDS: CEPHALEXIN 250 MG CAPSULE PO SCH ×3 (09:10→20:11)
[2018-09-10] MEDS: MAGNESIUM OXIDE 400 MG TABLET PO SCH ×2 (09:10→20:11)
[2018-09-10] MEDS: GABAPENTIN 400 MG CAPSULE. PO SCH ×3 (09:10→20:11)
[2018-09-10] MEDS: LACTOBACILLUS RHAMNOSUS GG 1 CAPSULE. PO SCH ×2 (09:10→20:11)
[2018-09-10] MEDS: VENLAFAXINE 50 MG TABLET. PO SCH ×3 (09:10→20:11)
[2018-09-10] MEDS: ARIPiprazole 2 MG TABLET PO SCH (09:11)
[2018-09-10] MEDS: LEUCOVORIN CALCIUM 5 MG TABLET PO SCH (09:11)
[2018-09-10] MEDS: ENOXAPARIN ** NOTE DOSE ** SYRINGE SQ SCH ×2 (09:12→20:12)
[2018-09-10] MEDS: DICLOFENAC SODIUM 1% TOPICAL GEL 100GM TUBE. TP SCH ×4 (09:12→20:12)
[2018-09-10] MEDS: METOPROLOL TART IMMED RELEASE 50 MG TABLET PO SCH ×2 (11:13→20:11)
--- NOTE | 2018-09-10 11:14 | PDOC ---
PROGRESS NOTES Assessment 1. Atrial fibrillation with rapid ventricle response. Patient has known history of paroxysmal atrial fibrillation. Last 2-D echo in 2017 showed normal LV systolic function. Plan repeat 2-D echo as outpatient. Heart rate better controlled but still slightly elevated. Continue Toprol and increase Cardizem dose for better rate control. Continue amiodarone for antiarrhythmic therapy. Continue warfarin for stroke prophylaxis and adjust dose per pharmacy for therapeutic INR. We will consider outpatient cardioversion in 3-4 weeks. 2. CAD s/p single-vessel CABG with cardiac catheterization in 2011 showing patent TAPIA to LAD. She is clinically stable and chest pain-free. Continue current secondary prevention measures. 3. Hypertension: Controlled 4. Hyperlipidemia: Continue statin therapy 5. Diabetes mellitus type 2: Treat per IM 6. Major depressive disorder: Treat per psychiatric team Subjective Recent somnolent but comfortable Objective Vital Signs Date Time Temp Pulse Resp B/P (MAP) Pulse Ox O2 Delivery O2 Flow Rate FiO2 09/10/18 11:05 117 20 138/78 (98) 95 Nasal Cannula 3.0 09/10/18 07:33 97.9 Intake and Output 09/10/18 06:59 Intake Total 1728 ml Balance 1728 ml Intake Oral 1728 ml # Voids 3 Abdomen: Soft, No tenderness Heart: Other (heart rate is irregular) Extremities: Other (1+ edema) General: No acute distress HEENT: Atraumatic, PERRLA Lungs: Clear to auscultation Neck: Supple Review of Relevant I have reviewed the following items bernadette (where applicable) has been applied. Labs Laboratory Tests Test 09/09/18 12:39 09/09/18 16:52 09/09/18 20:16 09/09/18 21:51 Glucose (Fingerstick) 218 mg/dL (70-99) H 247 mg/dL (70-99) H 241 mg/dL (70-99) H 216 mg/dL (70-99) H Test 09/10/18 05:48 09/10/18 06:00 09/10/18 07:41 Glucose (Fingerstick) 215 mg/dL (70-99) H 205 mg/dL (70-99) H Prothrombin Time 19.1 SEC (9.4-11.4) H Prothrombin Time INR 1.8 (0.9-1.1) H Sodium Level 129 mmol/L (136-145) L Potassium Level 5.2 mmol/L (3.5-5.1) H Chloride Level 96 mmol/L (98-107) L Carbon Dioxide Level 26 mmol/L (21-32) Anion Gap 7 (6-14) Blood Urea Nitrogen 15 mg/dL (7-20) Creatinine 0.8 mg/dL (0.6-1.0) Estimated GFR (Cockcroft-Gault) 71.8 BUN/Creatinine Ratio 19 (6-20) Glucose Level 213 mg/dL (70-99) H Calcium Level 8.4 mg/dL (8.5-10.1) L Total Bilirubin 0.9 mg/dL (0.2-1.0) Aspartate Amino Transferase (AST) 97 U/L (15-37) H Alanine Aminotransferase (ALT) 113 U/L (14-59) H Alkaline Phosphatase 255 U/L (46-116) H Total Protein 5.9 g/dL (6.4-8.2) L Albumin 1.9 g/dL (3.4-5.0) L Albumin/Globulin Ratio 0.5 (1.0-1.7) L Medications Current Medications Medications (Trade) Dose Ordered Sig/Leticia Route PRN Reason Start Time Stop Time Status Last Admin Dose Admin Insulin Human Lispro (HumaLOG) 0-7 UNITS TIDWMEALS SQ 09/09/18 12:00 09/10/18 08:32 Baclofen (Lioresal) 10 mg Q6H PRN PO MUSCLE SPASMS 09/09/18 12:15 09/09/18 21:46 DC 09/09/18 19:44 Diclofenac Sodium (Voltaren) 1 aaron QID TP 09/09/18 13:00 09/10/18 09:12 Warfarin Sodium (Coumadin) 7.5 mg 1X WARF ONCE PO 09/09/18 16:00 09/09/18 16:01 DC 09/09/18 16:56 Sodium Chloride 1,000 ml @ 100 mls/hr Q10H IV 09/09/18 13:15 09/09/18 13:24 Amiodarone HCl 900 mg/Dextrose 518 ml @ 0 mls/hr CONT PRN IV . 09/09/18 13:30 09/09/18 15:49 DC 09/09/18 15:49 Diltiazem HCl (Cardizem 24hr Cd) 180 mg 1X ONCE PO 09/09/18 13:45 09/09/18 13:51 DC 09/09/18 14:01 Digoxin (Lanoxin) 250 mcg 1X ONCE IV 09/09/18 17:00 09/09/18 17:01 DC 09/09/18 17:44 Baclofen (Lioresal) 20 mg PRN TID PRN PO MUSCLE SPASMS 09/09/18 22:00 09/10/18 09:10 Lorazepam (Ativan) 1 mg PRN Q4HRS PRN PO ANXIETY / AGITATION 09/09/18 21:45 09/09/18 21:58 Vitals/I & O Vital Signs Date Time Temp Pulse Resp B/P (MAP) Pulse Ox O2 Delivery O2 Flow Rate FiO2 09/10/18 11:05 117 20 138/78 (98) 95 Nasal Cannula 3.0 09/10/18 07:33 97.9 I & O 09/09/18 09/09/18 09/10/18 14:59 22:59 06:59 Intake Total 848 ml 580 ml 300 ml Balance 848 ml 580 ml 300 ml JIM CHRISTIANSON MD Sep 10, 2018 11:14
[2018-09-10] MEDS ORDERED: AMIODARONE HCL 200 MG TABLET PO SCH (14:00)
[2018-09-10] MEDS: IV NORMAL SALINE 1,000ML 1,000 ML IV SCH (14:27)
[2018-09-10] MEDS ORDERED: WARFARIN 7.5 MG TABLET. PO ONE (16:00)
[2018-09-10] MEDS: LORazepam 1 MG TABLET PO PRN (20:11)
[2018-09-10] MEDS: ATORVASTATIN CALCIUM 20 MG TABLET PO SCH (20:11)
--- NOTE | 2018-09-10 20:20 | RAD ---
PQRS Compliance statement: One or more of the following individualized dose reduction techniques were utilized for this examination: 1. Automated exposure control. 2. Adjustment of the mA and/or kV according to patient size. 3. Use of iterative reconstruction technique. Indication:Severe low back pain with radiation to the right lower extremity. TECHNIQUE: CT lumbar spine without IV contrast with multiplanar reformats. COMPARISON: None FINDINGS: Limited exam due to motion artifact. There are 5 lumbar type vertebral bodies. No compression deformity. Facet joints are in normal anatomic alignment. No acute fractures. Mild SI joint osteoarthritis. L1-L2: No significant disc bulge or herniation. Mild bilateral facet arthropathy. No significant neuroforaminal narrowing. L2-L3: Mild circumferential disc bulge flattening intrathecal sac. Mild bilateral facet arthropathy. Severe right and mild left neuroforamina narrowing. L3-L4: No significant disc bulge or herniation. Mild bilateral facet arthropathy. Severe right and moderate left neuroforamina narrowing. L4-L5: Mild circumferential disc bulge flattening intrathecal sac. Mild bilateral facet arthropathy. Severe right and left neuroforamina narrowing. L5-S1: Circumferential disc bulge flattening intrathecal sac. Moderate bilateral facet arthropathy. Moderate bilateral neuroforamina narrowing. Layering small amount of high attenuating fluid is seen in the right retroperitoneum. There is diffuse enlargement of the right iliacus muscle. High attenuating material is seen adjacent to and inside the right psoas muscle which may represent intramuscular bleed.. IMPRESSION: 1. Multilevel degenerative disc disease causing varying amount of neuroforaminal narrowing as described above. 2. Small amount of right retroperitoneal bleed. Enlargement of the right iliacus muscle may be secondary to edema from trauma or intramuscular hemorrhage. Also noted intramuscular bleed in right psoas muscle.Clinically correlate for history of trauma. Electronically signed by: Vasquez Johansen DO (09/10/2018 8:17 PM) [id number]
--- NOTE | 2018-09-10 22:48 | PDOC ---
Exam Note: Joe Note: Please also refer to the separate dictated note~for this date of service dictated separately.~Patient seen individually. Discussed the patient with Nursing staff reviewed the chart.~Reviewed interim history and current functioning. Reviewed vital signs,~Labs/ Radiology~and current medications noted below. Continue current treatment with the changes noted in the dictated addendum note Assessment: Vital Signs/I&O: Vital Signs Date Time Temp Pulse Resp B/P (MAP) Pulse Ox O2 Delivery O2 Flow Rate FiO2 09/10/18 21:06 103 20 118/81 (93) 97 Nasal Cannula 3.0 09/10/18 15:00 98.8 I & O 09/09/18 09/09/18 09/10/18 15:00 23:00 07:00 Intake Total 848 ml 580 ml 300 ml Balance 848 ml 580 ml 300 ml Labs: Laboratory Tests Test 09/10/18 05:48 09/10/18 06:00 09/10/18 07:41 09/10/18 11:52 Glucose (Fingerstick) 215 mg/dL (70-99) H 205 mg/dL (70-99) H 183 mg/dL (70-99) H Prothrombin Time 19.1 SEC (9.4-11.4) H Prothrombin Time INR 1.8 (0.9-1.1) H Sodium Level 129 mmol/L (136-145) L Potassium Level 5.2 mmol/L (3.5-5.1) H Chloride Level 96 mmol/L (98-107) L Carbon Dioxide Level 26 mmol/L (21-32) Anion Gap 7 (6-14) Blood Urea Nitrogen 15 mg/dL (7-20) Creatinine 0.8 mg/dL (0.6-1.0) Estimated GFR (Cockcroft-Gault) 71.8 BUN/Creatinine Ratio 19 (6-20) Glucose Level 213 mg/dL (70-99) H Calcium Level 8.4 mg/dL (8.5-10.1) L Total Bilirubin 0.9 mg/dL (0.2-1.0) Aspartate Amino Transferase (AST) 97 U/L (15-37) H Alanine Aminotransferase (ALT) 113 U/L (14-59) H Alkaline Phosphatase 255 U/L (46-116) H Total Protein 5.9 g/dL (6.4-8.2) L Albumin 1.9 g/dL (3.4-5.0) L Albumin/Globulin Ratio 0.5 (1.0-1.7) L Test 09/10/18 16:54 09/10/18 20:21 Glucose (Fingerstick) 174 mg/dL (70-99) H 187 mg/dL (70-99) H Current Medications: Meds: Current Medications Medications (Trade) Dose Ordered Sig/Leticia Route PRN Reason Start Time Stop Time Status Last Admin Dose Admin Warfarin Sodium (Coumadin) 7.5 mg 1X WARF ONCE PO 09/10/18 16:00 09/10/18 16:01 DC 09/10/18 16:59 Amiodarone HCl (Cordarone) 200 mg DAILY PO 09/10/18 14:00 09/10/18 14:18 I have reviewed the current psychotropics carefully including drug interactions. Risk benefit ratio favors no change other than as noted in my dictated progress note. Diagnosis: Problems: (1) Anxiety disorder (2) Major depressive disorder, recurrent episode (3) Impulse control disorder PATRICIA NOE MD Sep 10, 2018 22:48
[2018-09-10] MEDS ORDERED: HALOPERIDOL LACT 5 MG/ML VIAL. IVP PRN (23:30)
--- NOTE | 2018-09-11 00:07 | PN ---
DATE: SUBJECTIVE: The patient is resting, slightly propped up, clearly in severe pain. She is tremoring and will try to put the head down. She started complaining of severe sharp pain in the lower back. We have to adjust the head of the bed higher. She is now on amiodarone drip and her heart rate continued to be slightly high; even when she is asleep, the heart rate is still around 100-110. OBJECTIVE: GENERAL: On examining her, she was pale, but no jaundice, cyanosis, or thyromegaly. No jugular venous distension. No lower limb edema. VITAL SIGNS: Her heart rate was 108, blood pressure was 135/88, temperature was 97.9, respiratory rate was 20, and oxygen saturation was 100% on 3 liters of oxygen by nasal cannula. HEAD, EYES, EARS, NOSE AND THROAT: Showed normocephalic, atraumatic. NECK: Supple. HEART: Showed normal first and second heart sounds with no gallop, rub or murmur. CHEST: Clear to auscultation. No crepitation or rhonchi. ABDOMEN: Distended, soft, nontender. No guarding or rigidity. No organomegaly. All hernial orifice intact. Bowel sounds normal. NEUROLOGIC: She was awake, alert, but complaining of severe pain. All her cranial nerves are intact. She moves upper extremities without difficulty. She is mostly bedbound, chair bound. Her intake is 1925, no output was recorded. LABORATORY DATA: Her lab work this morning showed a white cell count of 11,000, hemoglobin 11, hematocrit 33, MCV 91, and platelet count 242,000. Her chemistry showed a serum sodium of 129, potassium 5.2, chloride 96, bicarbonate 26, anion gap of 7, BUN 15, creatinine was 0.8, estimated GFR was 72 mL per minute. Her glucose was 113, calcium was 8.4. Total bilirubin normal. AST, ALT, alkaline phosphatase are elevated, although they are trending down. Her prothrombin time was 19.1, INR 1.8. ASSESSMENT: 1. Paroxysmal atrial fibrillation with rapid ventricular response, now on amiodarone drip as well as Cardizem and metoprolol. 2. Severe low back pain with radiation to the right lower extremity and probably some form of radiculopathy. 3. Hypertension. 4. Hyperlipidemia. 5. Type 2 diabetes mellitus. 6. Morbid obesity, obstructive sleep apnea. 7. Severe protein-calorie malnutrition. 8. Bronchial asthma. 9. She has coronary artery disease, status post single coronary artery bypass graft surgery with left internal mammary artery to left anterior descending. PLAN: My plan is to continue with the Cardizem and amiodarone drip as recommended by the extrusion line operator. I will arrange for her to have a CT scan of the lumbar spine and I will discontinue her potassium chloride. Continue with IV normal saline. RENETTA DEE MD DR: LU/thee JOB#: [id number] / [id number]
[2018-09-11 00:09] VITALS: BP 132/87
[2018-09-11] MEDS: LORazepam 1 MG TABLET PO PRN ×2 (00:12→05:58)
[2018-09-11] MEDS: IV NORMAL SALINE 1,000ML 1,000 ML IV SCH (00:13)
[2018-09-11 01:32] VITALS: BP 93/55
[2018-09-11 02:05] VITALS: BP 112/70
--- NOTE | 2018-09-11 02:10 | RAD ---
INDICATION: Altered mental status COMPARISON: July 2018 TECHNIQUE: Axial CT images obtained through the head. One or more of the following individualized dose reduction techniques were utilized for this examination: 1. Automated exposure control; 2. Adjustment of the mA and/or kV according to patient size; 3. Use of iterative reconstruction technique. FINDINGS: No midline shift. Suprasellar cistern is not effaced. Scattered foci of low density of white matter. Prominence of ventricles and sulci which can be seen with age-related volume loss. No definite acute hemorrhage. IMPRESSION: 1. No definite acute intracranial hemorrhage. 2. Scattered foci of low density of white matter. Nonspecific but can be seen with chronic small vessel ischemic disease. Electronically signed by: Parth Kingston MD (09/11/2018 2:07 AM) [id number]
[2018-09-11 03:02] VITALS: BP 108/79
[2018-09-11 05:06] VITALS: BP 125/93
[2018-09-11 05:29] LABS: BASO % 0 % (0-3); EOS # 0.1 x10^3/uL (0.0-0.7); EOS % 0 % (0-3); HEMATOCRIT 25.1 % (36.0-47.0); LYMPH # 1.4 x10^3/uL (1.0-4.8); LYMPH % 10 % (24-48); MEAN CORPUSCULAR HEMOGLOBIN 29 pg (25-35); MEAN CORPUSCULAR HGB CONC 32 g/dL (31-37); MEAN CORPUSCULAR VOLUME 92 fL (79-100); MONO % 7 % (0-9); NEUT # 11.3 x10^3uL (1.8-7.7); NEUT % 83 % (31-73); PLATELET COUNT 258 x10^3/uL (140-400); RED BLOOD COUNT 2.74 x10^6/uL (3.50-5.40); RED CELL DISTRIBUTION WIDTH 16.2 % (11.5-14.5); WHITE BLOOD COUNT 13.7 x10^3/uL (4.0-11.0)
[2018-09-11 05:49] LABS: ALBUMIN 1.7 g/dL (3.4-5.0); ALBUMIN/GLOBULIN RATIO 0.4 (1.0-1.7); CALCIUM 8.5 mg/dL (8.5-10.1); CREATININE 0.9 mg/dL (0.6-1.0); GFR 62.6; POTASSIUM 5.5 mmol/L (3.5-5.1); TOTAL BILIRUBIN 1.4 mg/dL (0.2-1.0)
[2018-09-11 06:06] VITALS: BP 103/85
[2018-09-11 07:51] LABS: % BANDS 1 % (0-9); % LYMPHS 8 % (24-48); % SEGS 88 % (35-66)
[2018-09-11 07:52] LABS: % BASOS 0 % (0-3); % EOS 0 % (0-5); % METAS 2 % (0-0); % MONOS 1 % (0-10); PLT ESTIMATE ADEQUATE (ADEQUATE); POLYCHROMASIA PRESENT
[2018-09-11] MEDS: dilTIAZem VIAL 125 MG in IV DEXTROSE 5% 100 ML IV PRN (08:28)
[2018-09-11] MEDS ORDERED: DIGOXIN IV 500 MCG/2 ML AMPUL. ONE (09:05)
[2018-09-11] MEDS ORDERED: DIGOXIN IV 500 MCG/2 ML AMPUL. IV ONE (09:30)
--- NOTE | 2018-09-11 17:12 | DS ---
DATE OF DISCHARGE: 09/11/2018 HOSPITAL COURSE: The patient is a 68-year-old female patient who was admitted originally to [facility] as a transfer from [facility] [place] [facility] with severe depression and while at the [facility], she went into atrial fibrillation with rapid ventricular response. Her heart rate was up to 160 and was given oral diltiazem at 360 mg without improvement and therefore, she was transferred to ICU. She was given a bolus of Cardizem at 30 mg and she reverted back to sinus rhythm. Her heart rate has slowed down between 80 and 90 beats per minute; however, she continued to be on Coumadin and Lovenox as her INR continued to be subtherapeutic. The patient denied any chest pain or shortness of breath; however, her main complaint was severe pain in her right thigh, described as pinched nerve that diffusely involved the medial aspect of the right thigh. She was seen in consultation by the tanning solution maker and was switched to amiodarone and oral Cardizem. She did receive at least initially 500 mcg of digoxin without much improvement. Unfortunately, she continued to have severe pain in her right lower extremity and therefore, I did a CT scan of the lumbar spine, which basically showed that she has multilevel degenerative disk disease causing varying amount of neural foraminal narrowing as described above. She has also a small amount of right retroperitoneal bleed, enlargement of the right iliacus muscle, may be secondary to edema from trauma or intramuscular hemorrhage, also noted intramuscular bleed in the right psoas muscle clinically correlated her history of trauma. The patient had severe pain; therefore, she was given muscle relaxant and IV pain medication in the form of fentanyl. Unfortunately, the patient became extremely agitated, restless last night and we have to give her Haldol to be able to calm her down. She continued to be hallucinating, delusional and her heart rate was continued to be extremely high at 165 despite the Cardizem drip. Her blood pressure dropped down to 86/72 and therefore, she was given a liter of normal saline. I discontinued her Cardizem drip that was started because it just caused hypotension without really controlling the heart rate. I did give her another 500 mcg of digoxin and the plan was to transfer [facility] to [facility] ICU to control the heart rate. I did actually discontinue her Lovenox and her Coumadin given that she has retroperitoneal bleed and iliopsoas muscle bleed, this might be the reason causing the radiculopathy and severe pain in her right leg. PHYSICAL EXAMINATION: GENERAL: When I examined her this morning, she was pale, but not jaundiced, cyanosis, or thyromegaly. No jugular venous distension. No lower limb edema. VITAL SIGNS: Her heart rate was 165, blood pressure was 86/62, temperature was 98.8, respiratory rate was 20, and oxygen saturation was difficult to detect and the last measurement was 97% on 3 liters of oxygen. HEAD, EYES, EARS, NOSE AND THROAT: Normocephalic, atraumatic. NECK: Supple. HEART: Showed normal first and second heart sounds. No gallop, rub or murmur. CHEST: Clear to auscultation. No crepitation or rhonchi. ABDOMEN: Distended, soft, nontender. NEUROLOGIC: She was extremely lethargic earlier this morning. She can take anything by mouth; however, all her cranial nerves seem to be grossly intact. She moves extremities without difficulty. Her intake over the last 24 hours was 1728, no output was recorded. LABORATORY DATA: Her lab work this morning showed a serum sodium 133, potassium 5.5, chloride 100, bicarbonate 25, anion gap of 8, BUN 20, creatinine 0.9, estimated GFR was 62 mL per minute. Her glucose was 103, calcium was 8.5, magnesium is 2. Bilirubin, AST, ALT, alkaline phosphatase were all elevated. Her total protein was 6, albumin was 1.7. Her total white cell count was 13,700, hemoglobin 8, hematocrit 25, MCV 92, and platelet count of 258,000. Her prothrombin time was 25.9, INR of 2.5. Her nasal screen MRSA by PCR showing ___. DISCHARGE MEDICATIONS: [facility] will [facility] to continue on following medications: Vitamin D 50,000, olanzapine 2.5 mg every 2 hours, haloperidol 5 mg every 4 hours, amiodarone 200 mg daily, baclofen 20 mg 3 times a day, lorazepam 1 mg every 4 hours, diclofenac. She is on leucovorin calcium 5 mg once a day, diltiazem 360 mg daily, aripiprazole 2 mg daily, vitamin D 2000 International Units once a day, guaifenesin 600 mg b.i.d., metoprolol 50 mg p.o. b.i.d., cephalexin 500 mg 3 times a day, lactobacillus rhamnosus 1 capsule twice a day, atorvastatin calcium 20 mg at bedtime, magnesium oxide 400 mg b.i.d., metformin 1000 mg b.i.d., fentanyl citrate 100 mcg every 2 hours as needed, hydrocodone/APAP 5/325 every 6 hours, venlafaxine 50 mg 3 times a day, gabapentin 400 mg 3 times a day, Tylenol 650 mg every 4 hours, albuterol and Atrovent by DuoNeb 4 times a day, furosemide 20 mg daily. ASSESSMENT: 1. Paroxysmal atrial fibrillation with rapid ventricular response, on amiodarone, Cardizem, and metoprolol without much response. 2. Severe low back pain with radiation to the right lower extremity, likely due to retroperitoneal bleed as well as iliopsoas muscle bleeding. 3. Hypertension. In fact, the patient is hypotensive, multifactorial. 4. Hyperlipidemia. 5. Type 2 diabetes mellitus. 6. Morbid obesity, obstructive sleep apnea. 7. Severe protein-calorie malnutrition. 8. Bronchial asthma. 9. Coronary artery disease, status post single coronary artery bypass graft surgery with left internal mammary artery to left anterior descending. 10. Abnormal liver enzymes with possible acute cholecystitis. I will arrange for her to have an abdominal ultrasound when she arrives and consult the Gastroenterology. RENETTA DEE MD DR: LU/thee JOB#: [id number] / [id number]
[2018-09-18] MEDS ORDERED: CHOLECALCIFEROL (VITAMIN D3) 50,000 UNIT CAPSULE PO SCH (16:00)
== END 2018-09-11 10:10 | disposition short-term general hospital (02) | DRG 308 ==
LOC: ICU 09:29
PROVIDERS: ADMIT Internal Medicine; ATTEND Internal Medicine
DX: I48.0 Paroxysmal atrial fibrillation (principal); E43 Unspecified severe protein-calorie malnutrition; F33.9 Major depressive disorder, recurrent, unspecified; Z68.43 Body mass index [BMI] 50.0-59.9, adult; E78.5 Hyperlipidemia, unspecified; E66.01 Morbid (severe) obesity due to excess calories; G47.33 Obstructive sleep apnea (adult) (pediatric); I10 Essential (primary) hypertension; J45.909 Unspecified asthma, uncomplicated; M51.16 Intervertebral disc disorders with radiculopathy, lumbar region; E11.9 Type 2 diabetes mellitus without complications; F41.9 Anxiety disorder, unspecified; F63.9 Impulse disorder, unspecified; I25.10 Atherosclerotic heart disease of native coronary artery without angina pectoris; I95.9 Hypotension, unspecified; Z85.038 Personal history of other malignant neoplasm of large intestine; Z93.3 Colostomy status; Z90.49 Acquired absence of other specified parts of digestive tract; Z95.1 Presence of aortocoronary bypass graft; Z82.49 Family history of ischemic heart disease and other diseases of the circulatory system; Z91.040 Latex allergy status; Z91.048 Other nonmedicinal substance allergy status; Z79.899 Other long term (current) drug therapy
CPT/HCPCS: 36415; 70450; 72131; 73552; 73562; 80053; 82803; 82947; 83605; 83735; 85007; 85025; 85027; 85610; 87070; 87205; 87641; J0282; J1160; J1630; J1650; J1815; J3010; J3475; J3490; J7030